=== PATIENT | male | born 1950 | race Caucasian/White ===

== ENCOUNTER 2021-02-15 02:10 | Inpatient (IN) | payer MEDICARE, MEDICAID, SELFPAY ==
[2021-02-15] VITALS (11 sets, daily range): BP systolic 126–180; BP diastolic 64–112; PULSE 70–100; RESP 15–20; TEMP 36–37; O2SAT 95–98; BMI 24.8
--- NOTE | 2021-02-15 | ECG_ITS ---
Test Reason : PREOP Blood Pressure : / mmHG Vent. Rate : 094 BPM Atrial Rate : 094 BPM P-R Int : 180 ms QRS Dur : 076 ms QT Int : 366 ms P-R-T Axes : 070 069 024 degrees QTc Int : 457 ms Sinus rhythm with Premature ventricular complexes Nonspecific ST changes Abnormal ECG When compared with ECG of 06-JUL-2013 19:41, Nonspecific ST changes Premature ventricular complexes Present Referred By: Lucila Burton Electronically Signed By:Lisandro Nair
--- NOTE | ~2021-02-15 | FL_ITS ---
EXAMINATION: XR FLUOROSCOPY WITH IMAGES CLINICAL INFORMATION: Right hip fracture. Femoral nailing. COMPARISON: None. TECHNIQUE: Fluoroscopy performed by Drs. Ashley dos santos. DAP: 0.461 mGycm2 Images: 5 FINDINGS: There is intramedullary femoral marsha in the right hip nail stabilizing the right femoral neck fracture in alignment. There is a small screws stabilizing the inferior medullary marsha. Is no dislocation. FL/FL guidance in OR IMPRESSION: Normal right femoral neck alignment status post internal stabilization with intramedullary femoral marsha and a hip nail with fracture fragments in alignment. There is no dislocation.
--- NOTE | ~2021-02-15 | XR_ITS ---
EXAMINATION: RIGHT HIP AND AP PELVIS. CLINICAL INFORMATION: Pain per COMPARISON: CT right hip 02/15/2021 TECHNIQUE: AP pelvis one view. Right hip 2 views. FINDINGS: AP pelvis and right hip: There is a flexion deformity right femoral neck likely from femoral neck impacted fracture. Mild cephalic migration of the distal fragments seen. There is no dislocation seen. The left hip appears unremarkable. The SI joints and rest of the pelvis is unremarkable. Atherosclerotic calcification of common femoral artery is noted. XR/XR pelvis 1-2V IMPRESSION: Impacted fracture right femoral neck with mild cephalic migration of the distal fragment. This results in flexion deformity of the hip. The left hip joint and rest of the pelvis is unremarkable.
--- NOTE | ~2021-02-15 | XR_ITS ---
EXAMINATION: RIGHT HIP AND AP PELVIS. CLINICAL INFORMATION: Pain per COMPARISON: CT right hip 02/15/2021 TECHNIQUE: AP pelvis one view. Right hip 2 views. FINDINGS: AP pelvis and right hip: There is a flexion deformity right femoral neck likely from femoral neck impacted fracture. Mild cephalic migration of the distal fragments seen. There is no dislocation seen. The left hip appears unremarkable. The SI joints and rest of the pelvis is unremarkable. Atherosclerotic calcification of common femoral artery is noted. XR/XR hip RT min 2V IMPRESSION: Impacted fracture right femoral neck with mild cephalic migration of the distal fragment. This results in flexion deformity of the hip. The left hip joint and rest of the pelvis is unremarkable.
--- NOTE | ~2021-02-15 | CT_ITS ---
EXAMINATION: CT OF THE RIGHT HIP WITHOUT CONTRAST CT OF THE RIGHT FEMUR WITHOUT CONTRAST CLINICAL INFORMATION: Fall. COMPARISON: None TECHNIQUE: Multidetector volumetric imaging was obtained through the right hip and the right femur without contrast. Multiplanar reformatted images in coronal and sagittal orientations were submitted. Assessment is somewhat limited by patient positioning. FINDINGS: There is a comminuted intertrochanteric fracture of the right proximal femur with impaction of the base of the femoral neck by 2 cm. There is slight associated varus angulation at the fracture site. There is a transversely oriented fracture of the greater trochanter with displacement by 7 mm. Lesser trochanteric fragment appears nondisplaced. Femoral head remains appropriately situated at the hip. 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 Bones are osteopenic. No appreciable fractures are identified in the right innominate bone. Calcific atherosclerosis is evident in the right iliac and femoral arteries. There is fat stranding around the right hip with a probable small effusion. No large fluid collections are identified in this region. The intertrochanteric proximal femoral fracture is again noted as detailed above. The remainder of the right femur is intact, though the distal margin is incompletely assessed on these images. The knee joint is not included. Noted fluid collections are identified in the distal femur. The imaged portion of the left proximal femur and left hip joint are intact with mild to moderate osteoarthritis. No acute intrapelvic abnormalities are identified. CT/CT femur RT wo con IMPRESSION: Comminuted impacted intertrochanteric fracture of the right proximal femur. No additional fractures are identified.
--- NOTE | 2021-02-15 03:11 | ED.FALL ---
HPI - Fall General Chief Complaint: Fall Stated Complaint: R hip pain Time Seen by Provider: 02/15/21 03:11 Source: patient Mode of arrival: EMS History of Present Illness HPI Narrative: 70-year-old male presents via EMS after he fell onto is right hip at the [facility] and now unable to move the right lower extremity. Patient denies head strike or loss of consciousness. Otherwise, patient denies fever, chills, shortness of breath, chest pain/palpitations. Related Data Home Medications Medication Instructions Recorded Confirmed amlodipine 1 tab PO DAILY 02/15/21 02/15/21 donepezil 1 tab PO DAILY 02/15/21 02/15/21 levetiracetam 1 tab PO BID 02/15/21 02/15/21 levothyroxine 1 tab PO DAILY 02/15/21 02/15/21 phenytoin sodium extended 1 cap PO TID 02/15/21 02/15/21 pravastatin 1 tab PO BEDTIME 02/15/21 02/15/21 sertraline 1 tab PO DAILY 02/15/21 02/15/21 Allergies Allergy/AdvReac Type Severity Reaction Status Date / Time No Known Allergies Allergy Unverified 05/13/20 15:08 [No Known Allergies*] Review of Systems Review of Systems: Pertinent positives and negatives as stated in HPI 10 point review of systems is otherwise negative. PMFSH Past Medical History Source: nursing notes reviewed Medical History Dementia Social History Social History Alcohol intake: never Smoked in Last 30 Days: No Use of substances other than those prescribed or required for medical reasons: No Advance Directives: No Physical Exam Vital Signs: Vital Signs: Last Vital Signs Temp 96.8 F 02/15/21 04:00 Pulse 72 02/15/21 04:00 Resp 15 02/15/21 04:00 BP 148/90 H 02/15/21 04:00 Pulse Ox 97 02/15/21 04:00 Body Mass Index 24.8 VITAL SIGNS: Reviewed. GENERAL: Well developed, well nourished, in no acute distress. HEAD: Normocephalic/atraumatic EYES: PERRLA, EOMI OROPHARYNX: no oral lesions noted, posterior pharynx clear LUNGS: Normal breath sounds. No adventitious sounds or accessory muscle use. SpO2<97> CARDIOVASCULAR: Regular rate and rhythm without noted murmurs ABDOMEN: Soft, non-tender, non-distended with bowel sounds. RIGHT LOWER EXTREMITY: No deformity noted, leg is flexed at hip and knee and patient reports pain on extension of the leg at the knee, foot is warm, capillary refill less than 3 seconds, palpable DP/PT and sensation intact NEUROLOGIC: Alert, Course Course Course Narrative: This is a 70-year-old male with history and clinical presentation consistent with mechanical fall resulting in fracture of the right proximal femur and otherwise hemodynamically stable and on review of all investigations there are no acute findings. This case was discussed with Orthopedics as well as the inpatient hospitalist, the latter of which is admitting the patient. MDM - Fall Lab Data Result diagrams: 02/15/21 04:43 02/15/21 04:43 Labs: Lab Results 02/15/21 02/15/21 02/15/21 Range/Units 04:18 04:18 04:43 WBC 9.6 (4.8-10.8) X10*3/uL RBC 5.21 (4.60-5.80) X10*6/uL Hgb 15.8 (14.0-18.0) g/dl Hct 46.4 (42-52) % MCV 89.1 (80-98) fL MCH 30.3 (27.0-33.0) pg MCHC 34.1 (31.0-36.0) g/dl RDW 14.6 (11.0-16.0) % Plt Count 227 (160-400) X10*3/uL MPV 11.2 (9.4-12.4) fL Immature Gran % (Auto) 0.5 H (0.0-0.4) % Neut % (Auto) 88.2 H (45-73) % Lymph % (Auto) 4.9 L (20-40) % [place] % (Auto) 5.7 (2-11) % Eos % (Auto) 0.4 (0-4) % Baso % (Auto) 0.3 (0-2) % Lymph # (Auto) 0.5 L (1.2-4.9) X10*3/uL [place] # (Auto) 0.6 (0.1-1.2) X10*3/uL Eos # (Auto) 0.0 (0.0-0.4) X10*3/uL Baso # (Auto) 0.0 (0.0-0.2) X10*3/uL Abs Immat Gran (auto) 0.05 H (0.00-0.03) X10*3/uL Absolute Neuts (auto) 8.5 H (2.0-8.3) X10*3/uL Absolute Nucleated RBC 0.000 (0.0-0.012) X10*3/uL Nucleated RBC % (auto) 0.0 (0.0-0.2) /100WBC Sodium (135-145) mmol/L Potassium (3.3-5.1) mmol/L Chloride (96-108) mmol/L Carbon Dioxide (22-29) mmol/L Anion Gap (12-20) BUN (9-16) mg/dL Creatinine (0.5-1.4) mg/dL Estim Creat Clear Calc Estimated GFR Random Glucose (60-115) mg/dL Calcium (8.4-10.2) mg/dL Total Bilirubin (0.0-1.0) mg/dL AST (5-37) U/L ALT (0-40) U/L Alkaline Phosphatase (39-117) U/L Total Protein (6.5-8.0) g/dL Albumin (3.5-5.0) g/dL Urine Color YELLOW Urine Appearance CLEAR Urine pH 7.0 (5.0-8.0) Ur Specific [place] 1.015 (1.005-1.025) Urine Protein NEG (NEG-TRACE) MG/DL Urine Glucose (UA) NEG (NEG) MG/DL Urine Ketones NEG (NEG) MG/DL Urine Blood 1+ H (NEG) Urine Nitrite NEG (NEG) Ur Leukocyte Esterase NEG (NEG) Urine RBC 1-4 (0) /HPF Urine WBC 0 (0-4) /HPF Ur Squamous Epith Cells TRACE /LPF Urine Bacteria NONE /LPF COVID-19 ([facility]) Negative (Negative) COVID-19 Clin Com See Note 02/15/21 Range/Units 04:43 WBC (4.8-10.8) X10*3/uL RBC (4.60-5.80) X10*6/uL Hgb (14.0-18.0) g/dl Hct (42-52) % MCV (80-98) fL MCH (27.0-33.0) pg MCHC (31.0-36.0) g/dl RDW (11.0-16.0) % Plt Count (160-400) X10*3/uL MPV (9.4-12.4) fL Immature Gran % (Auto) (0.0-0.4) % Neut % (Auto) (45-73) % Lymph % (Auto) (20-40) % [place] % (Auto) (2-11) % Eos % (Auto) (0-4) % Baso % (Auto) (0-2) % Lymph # (Auto) (1.2-4.9) X10*3/uL [place] # (Auto) (0.1-1.2) X10*3/uL Eos # (Auto) (0.0-0.4) X10*3/uL Baso # (Auto) (0.0-0.2) X10*3/uL Abs Immat Gran (auto) (0.00-0.03) X10*3/uL Absolute Neuts (auto) (2.0-8.3) X10*3/uL Absolute Nucleated RBC (0.0-0.012) X10*3/uL Nucleated RBC % (auto) (0.0-0.2) /100WBC Sodium 133 L (135-145) mmol/L Potassium 4.4 (3.3-5.1) mmol/L Chloride 100 (96-108) mmol/L Carbon Dioxide 17 L (22-29) mmol/L Anion Gap 20 (12-20) BUN 11 (9-16) mg/dL Creatinine 0.89 (0.5-1.4) mg/dL Estim Creat Clear Calc 56.3 Estimated GFR > 60 Random Glucose 105 (60-115) mg/dL Calcium 9.2 (8.4-10.2) mg/dL Total Bilirubin 0.3 (0.0-1.0) mg/dL AST 18 (5-37) U/L ALT 9 (0-40) U/L Alkaline Phosphatase 195 H (39-117) U/L Total Protein 7.6 (6.5-8.0) g/dL Albumin 4.4 (3.5-5.0) g/dL Urine Color Urine Appearance Urine pH (5.0-8.0) Ur Specific [place] (1.005-1.025) Urine Protein (NEG-TRACE) MG/DL Urine Glucose (UA) (NEG) MG/DL Urine Ketones (NEG) MG/DL Urine Blood (NEG) Urine Nitrite (NEG) Ur Leukocyte Esterase (NEG) Urine RBC (0) /HPF Urine WBC (0-4) /HPF Ur Squamous Epith Cells /LPF Urine Bacteria /LPF COVID-19 ([facility]) (Negative) COVID-19 Clin Com Discharge Plan Discharge Clinical Impression: Epilepsy, Femur fracture, right Patient Disposition: Admitted As Inpatient
[2021-02-15 04:23] LABS: Appearance Urine CLEAR; Color Urine YELLOW; Glucose Urine UA NEG (NEG); Leukocyte Esterase Urine NEG (NEG); Nitrite Urine NEG (NEG); Specific Gravity - Urine 1.015 (1.005-1.025); Urine Blood 1+ (NEG); Urine Ketones NEG (NEG); Urine Protein NEG (NEG-TRACE)
[2021-02-15 04:29] LABS: Squamous Epithelial Cell Urine TRACE /LPF; WBC Urine 0 /HPF (0-4)
[2021-02-15] MEDS: Ketorolac Tromethamine 15 MG/ML VIAL IVPUSH (04:38)
[2021-02-15 04:41] LABS: COVID-19 Test Negative (Negative); IDNOW Serial# 9DD0AD1C
[2021-02-15 04:49] LABS: Basophils Percent Auto 0.3 % (0-2); Lymphocytes Percent Auto 4.9 % (20-40); Monocytes Percent Auto 5.7 % (2-11); Neutrophils Percent Auto 88.2 % (45-73); PLT CLUMP 1; SCAN SMEAR FLAG 1
[2021-02-15 04:50] LABS: Eosinophils Percent Auto 0.4 % (0-4); Hematocrit 46.4 % (42-52); Hemoglobin 15.8 g/dl (14.0-18.0); Imm Gran Abs Auto 0.05 X10*3/uL (0.00-0.03); Imm Gran Pct Auto 0.5 % (0.0-0.4); Lymphocytes Absolute Auto 0.5 X10*3/uL (1.2-4.9); Mean Corpuscular HGB Conc 34.1 g/dl (31.0-36.0); Mean Corpuscular Hemoglobin 30.3 pg (27.0-33.0); Mean Corpuscular Volume 89.1 fL (80-98); Mean Platelet Volume 11.2 fL (9.4-12.4); Monocytes Absolute Auto 0.6 X10*3/uL (0.1-1.2); Neutrophils Absolute Auto 8.5 X10*3/uL (2.0-8.3); Red Blood Count 5.21 X10*6/uL (4.60-5.80); Red Cell Distribution Width 14.6 % (11.0-16.0); White Blood Count 9.6 X10*3/uL (4.8-10.8)
[2021-02-15 05:10] LABS: MANUAL DIFF FLAG NO; Platelet Count 227 X10*3/uL (160-400)
[2021-02-15 05:20] LABS: Alanine Aminotransferase 9 U/L (0-40); Albumin Level 4.4 g/dL (3.5-5.0); Alkaline Phosphatase 195 U/L (39-117); Anion Gap 20 (12-20); Aspartate Amino Transferase 18 U/L (5-37); Bilirubin Total 0.3 mg/dL (0.0-1.0); Blood Urea Nitrogen 11 mg/dL (9-16); Calcium 9.2 mg/dL (8.4-10.2); Carbon Dioxide 17 mmol/L (22-29); Chloride 100 mmol/L (96-108); Creatinine Clr Calc Pharmacy 56.3; Estimated Glomerular Filt Rate > 60; Glucose Random 105 mg/dL (60-115); Potassium 4.4 mmol/L (3.3-5.1); Sodium 133 mmol/L (135-145); Total Protein 7.6 g/dL (6.5-8.0)
[2021-02-15] MEDS: HYDROmorphone HCl 0.5 MG/0.5 ML SYRINGE 0.25 MG IVPUSH (05:30)
--- NOTE | 2021-02-15 05:42 | PM.IMHP ---
History of Present Illness Date of Service: 02/15/21 Chief Complaint: Fall 70-year-old male with a past medical history of hypertension, hyperlipidemia, hypothyroidism, history of seizures, dementia, retirement resident presented to the hospital with a chief complaint of fall. Patient reported that while he was walking he tripped over and fell on his right hip. Denies any head strike loss of consciousness. Complains of pain in the right hip. Denies any low back pain. Denies any numbness tingling. Denies any chest pain palpitations lightheadedness or dizziness. Denies any fever chills cough. Denies any urinary symptoms. Review of all other systems is negative except mentioned above ER course: Per ER team patient noted to have right hip tenderness, imaging showed committed impacted intertrochanteric fracture of the right proximal femur. Discussed with Dr. rg from orthopedics were recommended admission to the medicine service and will be evaluated in the morning. Patient neurovascularly intact on the right lower extremity. [facility] Medical History Dementia Social History Household Members: Other Housing: Longterm Do you presently have visiting nurse or other home services: No Alcohol intake: never Patient Tobacco Use Status: Never used Tobacco Meds Allergies Allergy/AdvReac Type Severity Reaction Status Date / Time No Known Allergies Allergy Verified 02/15/21 07:24 [No Known Allergies*] Active Medications: Current Medications Generic Name Dose Route Start Last Admin Trade Name Freq PRN Reason Stop Dose Admin Acetaminophen 650 mg 02/15/21 05:37 Acetaminophen 325 Mg Tablet PO Q6H PRN Pain, Mild (Pain Scale 1-3) Amlodipine Besylate 2.5 mg 02/15/21 09:00 Amlodipine Besylate 2.5 Mg Tablet PO DAILY [facility] Protocol Donepezil HCl 10 mg 02/15/21 09:00 Donepezil Hcl 10 Mg Tablet PO DAILY [facility] Heparin Sodium (Porcine) 5,000 unit 02/15/21 05:45 Heparin Sodium,Porcine 5,000 Unit/Ml Vial SUBCUT Q12H [facility] Dextrose/Sodium Chloride 1,000 mls @ 50 mls/hr 02/15/21 05:45 D51/2ns IVCONT .Q20H [facility] Levetiracetam 250 mg 02/15/21 09:00 Levetiracetam 250 Mg Tablet PO BID [facility] Levothyroxine Sodium 25 mcg 02/15/21 09:00 Levothyroxine Sodium 25 Mcg Tablet PO DAILY [facility] Magnesium Hydroxide 30 ml 02/15/21 05:37 Milk Of Magnesia 30 Ml Oral.Susp PO DAILY PRN Constipation Oxycodone HCl 5 mg 02/15/21 05:37 Oxycodone Hcl Immed Release 5 Mg Tablet PO Q6H PRN Pain, Severe (Pain Scale 7-10) Phenytoin Sodium 100 mg 02/15/21 09:00 Phenytoin Sodium Extended 100 Mg Capsule PO TID [facility] Pravastatin Sodium 80 mg 02/15/21 21:00 Pravastatin Sodium 80 Mg Tablet PO BEDTIME [facility] Sertraline HCl 25 mg 02/15/21 09:00 Sertraline Hcl 25 Mg Tablet PO DAILY [facility] Sodium Chloride 3 ml 02/15/21 08:00 0.9 % Sodium Chloride Flush 3 Ml [facility] Medications Medication Instructions Recorded Confirmed Last Taken Type acetaminophen [Tylenol] 650 mg PO Q4H PRN 02/15/21 02/15/21 Unknown History amlodipine 1 tab PO DAILY 02/15/21 02/15/21 Unknown History bisacodyl 10 mg [place] DAILY PRN 02/15/21 02/15/21 Unknown History donepezil 1 tab PO BEDTIME 02/15/21 02/15/21 Unknown History folic acid 1 mg PO DAILY 02/15/21 02/15/21 Unknown History levetiracetam 1 tab PO BID 02/15/21 02/15/21 Unknown History levothyroxine 1 tab PO DAILY 02/15/21 02/15/21 Unknown History magnesium hydroxide [Milk of 30 ml PO DAILY PRN 02/15/21 02/15/21 Unknown History Magnesia] nystatin [Nystop] 1 appl TOPICAL BID PRN 02/15/21 02/15/21 Unknown History phenytoin sodium extended 1 cap PO BEDTIME 02/15/21 02/15/21 Unknown History phenytoin sodium extended 2 cap PO DAILY 02/15/21 02/15/21 Unknown History pravastatin 1 tab PO BEDTIME 02/15/21 02/15/21 Unknown History sertraline 1 tab PO DAILY 02/15/21 02/15/21 Unknown History Physical Exam Vital Signs and Narrative: Vital Signs: Last Vital Signs Temp 96.8 F 02/15/21 04:00 Pulse 72 02/15/21 04:00 Resp 15 02/15/21 04:00 BP 148/90 H 02/15/21 04:00 Pulse Ox 97 02/15/21 04:00 Body Mass Index 24.8 Gen: Appears be in no acute distress HEENT: NCAT, Moist mucosa. Pulmonary: Vesicular breath sounds, fair air entry CVS: Normal S1-S2 Abdomen: BS+, Soft, Nontender Extremities: Warm well perfused; right lower extremity exam limited secondary to the pain Neuro: Alert and awake. Grossly nonfocal Results Labs CBC and Chem 7: 02/19/21 06:18 02/19/21 06:18 Labs: Laboratory Results - last 24 hr 02/15/21 02/15/21 02/15/21 04:18 04:18 04:43 MCV 89.1 MCH 30.3 MCHC 34.1 RDW 14.6 Plt Count 227 MPV 11.2 Immature Gran % (Auto) 0.5 H Neut % (Auto) 88.2 H Lymph % (Auto) 4.9 L [place] % (Auto) 5.7 Eos % (Auto) 0.4 Baso % (Auto) 0.3 Lymph # (Auto) 0.5 L [place] # (Auto) 0.6 Eos # (Auto) 0.0 Baso # (Auto) 0.0 Abs Immat Gran (auto) 0.05 H Absolute Neuts (auto) 8.5 H Absolute Nucleated RBC 0.000 Nucleated RBC % (auto) 0.0 Anion Gap Estim Creat Clear Calc Estimated GFR Random Glucose Calcium Total Bilirubin AST ALT Alkaline Phosphatase Total Protein Albumin Urine Color YELLOW Urine Appearance CLEAR Urine pH 7.0 Ur Specific [place] 1.015 Urine Protein NEG Urine Glucose (UA) NEG Urine Ketones NEG Urine Blood 1+ H Urine Nitrite NEG Ur Leukocyte Esterase NEG Urine RBC 1-4 Urine WBC 0 Ur Squamous Epith Cells TRACE Urine Bacteria NONE COVID-19 ([facility]) Negative COVID-19 Clin Com See Note 02/15/21 04:43 MCV MCH MCHC RDW Plt Count MPV Immature Gran % (Auto) Neut % (Auto) Lymph % (Auto) [place] % (Auto) Eos % (Auto) Baso % (Auto) Lymph # (Auto) [place] # (Auto) Eos # (Auto) Baso # (Auto) Abs Immat Gran (auto) Absolute Neuts (auto) Absolute Nucleated RBC Nucleated RBC % (auto) Anion Gap 20 Estim Creat Clear Calc 56.3 Estimated GFR > 60 Random Glucose 105 Calcium 9.2 Total Bilirubin 0.3 AST 18 ALT 9 Alkaline Phosphatase 195 H Total Protein 7.6 Albumin 4.4 Urine Color Urine Appearance Urine pH Ur Specific [place] Urine Protein Urine Glucose (UA) Urine Ketones Urine Blood Urine Nitrite Ur Leukocyte Esterase Urine RBC Urine WBC Ur Squamous Epith Cells Urine Bacteria COVID-19 ([facility]) COVID-19 Clin Com Imaging Radiologist's Impressions: Impressions Femur CT 02/15/21 02:35 IMPRESSION: Comminuted impacted intertrochanteric fracture of the right proximal femur. No additional fractures are identified. Hip CT 02/15/21 02:36 IMPRESSION: Comminuted impacted intertrochanteric fracture of the right proximal femur. No additional fractures are identified. Assessment and Plan (1) Femur fracture, right: Status: Acute 70-year-old male with a past medical history of hypertension, hyperlipidemia, hypothyroidism, epilepsy, dementia, retirement resident presented to the hospital with a chief complaint of fall. Patient noted to have sustained right femur fracture. Admitted for further management. Fall: Mechanical in nature. Denies any head strike or loss of consciousness. Exam grossly nonfocal. Fall precautions Right femur fracture: CT scan showed comminuted impacted intertrochanteric fracture of the right proximal femur. Orthopedics was notified. Management per Orthopedics team. Pain control Preop evaluation: Patient denies any chest pain. Patient is moderate to high risk for moderate risk surgery. History of hypertension/hyperlipidemia: Continue home pravastatin and amlodipine. History of seizures: Continue home Keppra and phenytoin History of dementia: Continue home donepezil and sertraline. DVT prophylaxis: Subcu heparin Code status: Full code Quality Stroke Does the patient have a stroke diagnosis?: No VTE Prior VTE?: No VTE Risk Level:: Medical - moderate - high VTE Device Contraindication: N/A - Device Ordered VTE Drug Contraindication: N/A - Med Ordered
[2021-02-15 07:01] LABS: Prothrombin Time 12.2 SEC (10.8-13.0)
[2021-02-15] MEDS: Heparin Sodium,Porcine 5,000 UNIT/ML VIAL 5000 UNIT SUBCUT (07:46)
[2021-02-15] MEDS: Dextrose 5 % and 0.45 % NaCl 1,000 ML 50 ML IVCONT (07:46)
--- NOTE | 2021-02-15 07:51 | MHC.CM.ED ---
PATIENT IS IN FROM [facility]LO[facility]. HE RELIES ON A WALKER, CANE, AND WHEELCHAIR. 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 PLAN IS TO RETURN TO FACILITY. JAMA 02/15 IN CHART.
--- NOTE | 2021-02-15 08:13 | P.HPOP_ITS ---
History of Present Illness History of Present Illness Date of Service: 02/15/21 Chief complaint: Fall Narrative: Eleno Sommers is a 70 year old male who sustained a fall at the nursing facility yesterday. The patient is unable to describe the events leading up to or after the fall and appears to be an unreliable historian. He has a past medical history confirmed with the [facility] for Seizures, dementia, malnutrition, HTN, HLD, and hypothyroidism. He presented to the ED after the fall for evaluation of right hip pain and inability to ambulate or move the right leg. A CT scan was obtained and he was found to have an impacted intertrochanteric right hip fracture. Review of Systems Review of Systems: Yes all other systems are reviewed and are negative PMFSH Past Medical History Medical History Dementia Social History Social History Alcohol intake: never Smoked in Last 30 Days: No Use of substances other than those prescribed or required for medical reasons: No Advance Directives: No Meds Allergies Allergy/AdvReac Type Severity Reaction Status Date / Time No Known Allergies Allergy Verified 02/15/21 07:24 [No Known Allergies*] Active Medications: Current Medications Generic Name Dose Route Start Last Admin Trade Name Freq PRN Reason Stop Dose Admin Acetaminophen 650 mg 02/15/21 05:37 Acetaminophen 325 Mg Tablet PO Q6H PRN Pain, Mild (Pain Scale 1-3) Amlodipine Besylate 2.5 mg 02/15/21 09:00 Amlodipine Besylate 2.5 Mg Tablet PO DAILY [facility] Protocol Donepezil HCl 10 mg 02/15/21 09:00 Donepezil Hcl 10 Mg Tablet PO DAILY [facility] Heparin Sodium (Porcine) 5,000 unit 02/15/21 05:45 02/15/21 07:46 Heparin Sodium,Porcine 5,000 Unit/Ml Vial SUBCUT 5,000 unit Q12H [facility] Administration Dextrose/Sodium Chloride 1,000 mls @ 50 mls/hr 02/15/21 05:45 02/15/21 07:46 D51/2ns IVCONT 50 mls/hr .Q20H [facility] Administration Levetiracetam 250 mg 02/15/21 09:00 Levetiracetam 250 Mg Tablet PO BID [facility] Levothyroxine Sodium 25 mcg 02/15/21 09:00 Levothyroxine Sodium 25 Mcg Tablet PO DAILY [facility] Magnesium Hydroxide 30 ml 02/15/21 05:37 Milk Of Magnesia 30 Ml Oral.Susp PO DAILY PRN Constipation Oxycodone HCl 5 mg 02/15/21 05:37 Oxycodone Hcl Immed Release 5 Mg Tablet PO Q6H PRN Pain, Severe (Pain Scale 7-10) Phenytoin Sodium 100 mg 02/15/21 09:00 Phenytoin Sodium Extended 100 Mg Capsule PO TID [facility] Pravastatin Sodium 80 mg 02/15/21 21:00 Pravastatin Sodium 80 Mg Tablet PO BEDTIME [facility] Sertraline HCl 25 mg 02/15/21 09:00 Sertraline Hcl 25 Mg Tablet PO DAILY [facility] Sodium Chloride 3 ml 02/15/21 08:00 02/15/21 07:46 0.9 % Sodium Chloride Flush 3 Ml Syringe IVFLUSH Not Given QSHIFT [facility] Home Medications Medication Instructions Recorded Confirmed Last Taken Type amlodipine 1 tab PO DAILY 02/15/21 02/15/21 Unknown History donepezil 1 tab PO DAILY 02/15/21 02/15/21 Unknown History levetiracetam 1 tab PO BID 02/15/21 02/15/21 Unknown History levothyroxine 1 tab PO DAILY 02/15/21 02/15/21 Unknown History phenytoin sodium extended 1 cap PO TID 02/15/21 02/15/21 Unknown History pravastatin 1 tab PO BEDTIME 02/15/21 02/15/21 Unknown History sertraline 1 tab PO DAILY 02/15/21 02/15/21 Unknown History Physical Exam Vital Signs: Vital Signs: Last Vital Signs Temp 96.8 F 02/15/21 04:00 Pulse 92 02/15/21 05:37 Resp 16 02/15/21 05:37 BP 142/64 H 02/15/21 05:37 Pulse Ox 98 02/15/21 05:37 Body Mass Index 24.8 Const: General: cooperative, healthy appearing and no acute distress Resp: Effort & Inspection: normal respiratory effort and able to speak in complete sentences Cardio: Rate: regular rate Peripheral pulses: Peripheral pulses 2+ throughout GI: Palpation (GI): Soft to palpation Skin: Lesions: no lesions Rashes: no rashes Extrem: Other: Patient is in the position unable to flex or extend his hip. He is able to plantarflex and dorsiflex. Sensation intact. Pedal pulse intact. Results Labs Result Diagrams: 02/15/21 04:43 02/15/21 04:43 Labs: Abnormal lab results 02/15/21 02/15/21 02/15/21 Range/Units 04:18 04:43 04:43 Immature Gran % (Auto) 0.5 H (0.0-0.4) % Neut % (Auto) 88.2 H (45-73) % Lymph % (Auto) 4.9 L (20-40) % Lymph # (Auto) 0.5 L (1.2-4.9) X10*3/uL Abs Immat Gran (auto) 0.05 H (0.00-0.03) X10*3/uL Absolute Neuts (auto) 8.5 H (2.0-8.3) X10*3/uL Sodium 133 L (135-145) mmol/L Carbon Dioxide 17 L (22-29) mmol/L Alkaline Phosphatase 195 H (39-117) U/L Urine Blood 1+ H (NEG) H & H 02/15/21 Range/Units 04:43 Hgb 15.8 (14.0-18.0) g/dl Hct 46.4 (42-52) % Coagulation 02/15/21 Range/Units 06:45 INR 1.0 (0.9-1.1) All other labs normal. Assessment and Plan (1) Intertrochanteric fracture of right hip: Status: Acute Mr. Sommers is a 70 yo male with a PMH for seizures, dementia, malnutrition, hypertension, hypothyroid, hyperlipidemia who presents from [facility] after sustaining a fall. After the fall he had significant right hip pain was unable to ambulate. A CT scan was obtained of t he pelvis where he was found to have a right impacted intertrochanteric hip fracture. Orthopedics was then consulted for further evaluation and treatment and the patient was admitted to the medicine service. I discussed the case with Dr. Ybarra and the patient's guardian Josh Oliveiraawilda at [phone]. I explained the extent of the injury to the patient and options available which include surgical intervention. I explained the procedure in detail along with the length of recovery and rehab course. I explained the risk, benefits and alternatives. Risk including, but not limited to infection, blood clots, bleeding, non union or malunion and nerve/tissue damage to surrounding areas. I answered all their questions and with their understanding they have consented to move forward with Operative Fixation of the right hip . The patient will be T&S, med clearance obtained and NPO after midnight for surgery on 02/17/21. Quality Stroke Does the patient have a stroke diagnosis?: No VTE Prior VTE?: No VTE Risk Level:: Surgical - high VTE Device Contraindication: N/A - Device Ordered VTE Drug Contraindication: N/A - Med Ordered Procedures Date of Service Date of Service: 02/15/21
--- NOTE | 2021-02-15 08:52 | PHA.MEDREC ---
Pharmacy Consult ? Medication Reconciliation Pharmacy has completed the medication reconciliation.
[2021-02-15] MEDS: amLODIPine Besylate 2.5 MG TABLET PO ×2 (10:17→16:44)
[2021-02-15] MEDS: Donepezil HCl 10 MG TABLET PO (10:17)
[2021-02-15] MEDS: Levothyroxine Sodium 25 MCG TABLET PO (10:17)
[2021-02-15] MEDS: Sertraline HCL 25 MG TABLET PO (10:17)
[2021-02-15] MEDS: Phenytoin Sodium Extended 100 MG CAPSULE PO ×3 (10:17→21:55)
[2021-02-15] MEDS: levETIRAcetam 250 MG TABLET PO ×2 (10:17→21:54)
--- NOTE | 2021-02-15 12:40 | PC.NURSE ---
call for report. rn to call back
[2021-02-15] MEDS: 0.9 % Sodium Chloride Flush 3 ML SYRINGE IVFLUSH (15:29)
[2021-02-15] MEDS: oxyCODONE HCl Immed Release 5 MG TABLET PO (15:29)
--- NOTE | 2021-02-15 16:15 | P.PNIM_ITS ---
Subjective Subjective Date of Service: 02/15/21 Interval History: R hip pain No chest pain No dyspnea Physical Exam Vital Signs: Vital Signs: Last Vital Signs Temp 97 F 02/15/21 15:43 Pulse 93 02/15/21 15:43 Resp 18 02/15/21 15:43 BP 180/110 H 02/15/21 15:43 Pulse Ox 96 02/15/21 15:43 Body Mass Index 24.8 Gen: in pain HEENT: sclera anicteric, moist mucus membranes Neck: supple Lungs: clear to auscultation bilaterally Heart: regular rate and rhythm, no murmurs Abd: soft, non-tender, non-distended Ext: no edema, R hip ROM limited by pain Skin: warm/well-perfused Neuro: alert, no focal cindings Psych: appropriate affect Objective Data Current Medications Generic Name Dose Route Start Last Admin Trade Name Freq PRN Reason Stop Dose Admin Acetaminophen 650 mg 02/15/21 05:37 Acetaminophen 325 Mg Tablet PO Q6H PRN Pain, Mild (Pain Scale 1-3) Amlodipine Besylate 2.5 mg 02/15/21 09:00 02/15/21 10:17 Amlodipine Besylate 2.5 Mg Tablet PO 2.5 mg DAILY MIRIAN Administration Protocol Donepezil HCl 10 mg 02/15/21 09:00 02/15/21 10:17 Donepezil Hcl 10 Mg Tablet PO 10 mg DAILY MIRIAN Administration Heparin Sodium (Porcine) 5,000 unit 02/15/21 05:45 02/15/21 07:46 Heparin Sodium,Porcine 5,000 Unit/Ml Vial SUBCUT 5,000 unit Q12H MIRIAN Administration Dextrose/Sodium Chloride 1,000 mls @ 50 mls/hr 02/15/21 05:45 02/15/21 07:46 D51/2ns IVCONT 50 mls/hr .Q20H MIRIAN Administration Levetiracetam 250 mg 02/15/21 09:00 02/15/21 10:17 Levetiracetam 250 Mg Tablet PO 250 mg BID MIRIAN Administration Levothyroxine Sodium 25 mcg 02/15/21 09:00 02/15/21 10:17 Levothyroxine Sodium 25 Mcg Tablet PO 25 mcg DAILY MIRIAN Administration Magnesium Hydroxide 30 ml 02/15/21 05:37 Milk Of Magnesia 30 Ml Oral.Susp PO DAILY PRN Constipation Oxycodone HCl 5 mg 02/15/21 05:37 02/15/21 15:29 Oxycodone Hcl Immed Release 5 Mg Tablet PO 5 mg Q6H PRN Administration Pain, Severe (Pain Scale 7-10) Phenytoin Sodium 100 mg 02/15/21 09:00 02/15/21 15:29 Phenytoin Sodium Extended 100 Mg Capsule PO 100 mg TID MIRIAN Administration Pravastatin Sodium 80 mg 02/15/21 21:00 Pravastatin Sodium 80 Mg Tablet PO BEDTIME MIRIAN Sertraline HCl 25 mg 02/15/21 09:00 02/15/21 10:17 Sertraline Hcl 25 Mg Tablet PO 25 mg DAILY MIRIAN Administration Sodium Chloride 3 ml 02/15/21 08:00 02/15/21 15:29 0.9 % Sodium Chloride Flush 3 Ml Syringe IVFLUSH 3 ml QSHIFT MIRIAN Administration Labs CBC & Chem 7: 02/15/21 04:43 02/15/21 04:43 Labs: Laboratory Results - last 24 hr 02/15/21 02/15/21 02/15/21 04:18 04:18 04:43 WBC 9.6 RBC 5.21 Hgb 15.8 Hct 46.4 MCV 89.1 MCH 30.3 MCHC 34.1 RDW 14.6 Plt Count 227 MPV 11.2 Immature Gran % (Auto) 0.5 H Neut % (Auto) 88.2 H Lymph % (Auto) 4.9 L [place] % (Auto) 5.7 Eos % (Auto) 0.4 Baso % (Auto) 0.3 Lymph # (Auto) 0.5 L [place] # (Auto) 0.6 Eos # (Auto) 0.0 Baso # (Auto) 0.0 Abs Immat Gran (auto) 0.05 H Absolute Neuts (auto) 8.5 H Absolute Nucleated RBC 0.000 Nucleated RBC % (auto) 0.0 PT INR Sodium Potassium Chloride Carbon Dioxide Anion Gap BUN Creatinine Estim Creat Clear Calc Estimated GFR Random Glucose Calcium Total Bilirubin AST ALT Alkaline Phosphatase Total Protein Albumin Urine Color YELLOW Urine Appearance CLEAR Urine pH 7.0 Ur Specific [place] 1.015 Urine Protein NEG Urine Glucose (UA) NEG Urine Ketones NEG Urine Blood 1+ H Urine Nitrite NEG Ur Leukocyte Esterase NEG Urine RBC 1-4 Urine WBC 0 Ur Squamous Epith Cells TRACE Urine Bacteria NONE COVID-19 (ZAHIRA) Negative COVID-19 Clin Com See Note Blood Type Antibody Screen 02/15/21 02/15/21 02/15/21 04:43 06:45 07:31 WBC RBC Hgb Hct MCV MCH MCHC RDW Plt Count MPV Immature Gran % (Auto) Neut % (Auto) Lymph % (Auto) [place] % (Auto) Eos % (Auto) Baso % (Auto) Lymph # (Auto) [place] # (Auto) Eos # (Auto) Baso # (Auto) Abs Immat Gran (auto) Absolute Neuts (auto) Absolute Nucleated RBC Nucleated RBC % (auto) PT 12.2 INR 1.0 Sodium 133 L Potassium 4.4 Chloride 100 Carbon Dioxide 17 L Anion Gap 20 BUN 11 Creatinine 0.89 Estim Creat Clear Calc 56.3 Estimated GFR > 60 Random Glucose 105 Calcium 9.2 Total Bilirubin 0.3 AST 18 ALT 9 Alkaline Phosphatase 195 H Total Protein 7.6 Albumin 4.4 Urine Color Urine Appearance Urine pH Ur Specific [place] Urine Protein Urine Glucose (UA) Urine Ketones Urine Blood Urine Nitrite Ur Leukocyte Esterase Urine RBC Urine WBC Ur Squamous Epith Cells Urine Bacteria COVID-19 (ZAHIRA) COVID-19 Clin Com Blood Type O Positive Antibody Screen NEGATIVE Quality Stroke Does the patient have a stroke diagnosis?: No VTE Prior VTE?: No VTE Risk Level:: Surgical - high VTE Device Contraindication: N/A - Device Ordered VTE Drug Contraindication: N/A - Med Ordered Assessment and Plan (1) Intertrochanteric fracture of right hip: Status: Acute Assessment and Plan: hospital d#1 70yo M [facility] resident with HTN, HLD, hypothyroidism, seizure disorder, dementia admitted for intertrochanteric R hip fracture sustained after mechanical fall # R femur fx - Ortho consulted, plan ORIF 02/17/21 # HTN - continue amlodipine # HLD - continue statin # seizure disorder - continue levetiracetam + phenytoin # dementia - continue donepezil + sertraline # hypothyroidism - continue LT4 # VTE ppx - UFH
[2021-02-15] MEDS: Pravastatin Sodium 80 MG TABLET PO (21:56)
[2021-02-16] VITALS (16 sets, daily range): BP systolic 99–152; BP diastolic 69–102; PULSE 80–127; RESP 14–18; TEMP 36.4–37.2; O2SAT 92–99
[2021-02-16] MEDS: oxyCODONE HCl Immed Release 5 MG TABLET PO (00:14)
--- NOTE | 2021-02-16 00:19 | PM.EVENT ---
Event Note Date of Service: 02/16/21 Event Note: Bigeminy: Patient has frequent PVCs with bigeminy on the telemetry. Patient asymptomatic. Echocardiogram. Cardiology consult.
--- NOTE | 2021-02-16 00:19 | PC.NURSE ---
pt having frequent PVC, having around 25-34 per minute. sinus rhythm/sinus tachycardia. Patient reported pain in right hip. PRN oxycodone given, pending results. MD made aware, no new orders at this time.
[2021-02-16] MEDS: HYDROmorphone HCl 0.5 MG/0.5 ML SYRINGE IVPUSH ×2 (03:13→22:23)
[2021-02-16] MEDS: Dextrose 5 % and 0.45 % NaCl 1,000 ML 50 ML IVCONT (03:55)
[2021-02-16 05:50] LABS: MANUAL DIFF FLAG NO
[2021-02-16 05:56] LABS: Basophils Percent Auto 0.1 % (0-2); Hematocrit 41.3 % (42-52); Hemoglobin 14.5 g/dl (14.0-18.0); Imm Gran Abs Auto 0.05 X10*3/uL (0.00-0.03); Imm Gran Pct Auto 0.5 % (0.0-0.4); Lymphocytes Absolute Auto 0.3 X10*3/uL (1.2-4.9); Lymphocytes Percent Auto 2.8 % (20-40); Mean Corpuscular HGB Conc 35.1 g/dl (31.0-36.0); Mean Corpuscular Volume 85.5 fL (80-98); Monocytes Percent Auto 9.2 % (2-11); Neutrophils Absolute Auto 9.4 X10*3/uL (2.0-8.3); Neutrophils Percent Auto 87.4 % (45-73); Platelet Count 289 X10*3/uL (160-400); Red Blood Count 4.83 X10*6/uL (4.60-5.80); Red Cell Distribution Width 14.5 % (11.0-16.0); White Blood Count 10.8 X10*3/uL (4.8-10.8)
[2021-02-16 06:24] LABS: Anion Gap 15 (12-20); Blood Urea Nitrogen 12 mg/dL (9-16); Calcium 8.8 mg/dL (8.4-10.2); Carbon Dioxide 23 mmol/L (22-29); Chloride 97 mmol/L (96-108); Creatinine Clr Calc Pharmacy 61.8; Estimated Glomerular Filt Rate > 60; Glucose Random 145 mg/dL (60-115); Potassium 4.1 mmol/L (3.3-5.1); Sodium 131 mmol/L (135-145)
--- NOTE | 2021-02-16 08:30 | CA_ITS ---
Transthoracic Echocardiogram Patient (Last, First, Middle): Eleno Sommers E Gender: Male Date of : 1950 Age: 70 Procedure Date: 02/16/2021 Procedure Type: Transthoracic Echocardiogram Location: [facility] Height: 154.94 cm Weight: 59.42 kg BSA: 1.58 m2 Heart Rate: bpm BP: 141 / 82 mmHg Dope Mixer: AUBRIE Referring MD: Mo Marcano MD Symptoms: bigeminy Study Quality: Fair Conclusions: - Technically limited study. - Normal left ventricular size and systolic function. - Normal right ventricular cavity size and systolic function. In some views the RV wall appears hypertrophic. No subcostal views were taken. - Poor valvular assessment due to technical limitations. Findings Left Ventricle Normal left ventricular size and systolic function. The visually estimated ejection fraction is between 55-60%. Regional wall motion abnormalities can not be excluded due to suboptimal endocardial definition. Diastolic function is indeterminate on the basis of available data. Right Ventricle Normal right ventricular cavity size and systolic function. In some views the RV wall appears hypertrophic. Atria The left atrium was not well visualized. Aortic Valve The aortic valve structure and function is likely normal. There is no aortic valve stenosis. There is no aortic valve regurgitation. Mitral Valve The mitral valve was not well visualized. Pulmonic Valve The pulmonic valve was not well visualized. Tricuspid Valve The tricuspid valve was not well visualized. Indeterminate right atrial pressure. Great Vessels The pulmonary artery was not well visualized. There is mild dilatation of the ascending aorta. Venous The inferior vena cava was not well visualized. Pericardium/Pleural There is no evidence of pericardial effusion. Prior Study Comparison No prior study available for comparison. Measurements 2D Linear Measurements IVSd: 1.12 0.6-0.9/0.6-1.0 cm LVIDd: 3.08 3.9-5.3/4.2-5.9 cm LVIDd Index: 1.95 2.4-3.2/2.2-3.1 cm/m2 LVIDs: 2.44 2.0-3.6 cm LVPWd: 1.00 0.7-1.1 cm Ao Root: 3.90 2.1-3.5 cm LA Diam: 2.50 2.7-3.8/3.0-4.0 cm LAIDs Index: 1.58 1.5-2.3 cm/m2 LV Mass: 115.85 67-162/88-224 g LV Mass Index: 73.32 43-95/49-115 g/m2 LVOT Diam: 2.20 3.0+(-)1.3 cm Mitral Valve E'Lateral: 6.74 E'Medial: 6.85 Aortic Valve AoV Pk Hernandez: 1.00 AoV Mn Hernandez: 0.64 AoV VTI: 0.13 AoV Pk Grad: 4.00 Aov Mn Grad: 2.00 RICK Cont.VTI: 3.89 LVOT LVOT Pk Hernandez: 0.82 LVOT Mn Hernandez: 0.59 LVOT VTI: 0.13 LVOT Pk Grad: 3.00 LVOT Mn Grad: 2.00 LVOT Diam: 2.20 LVOT Area: 3.80 Diastolic Function E'Medial: 6.85 E' Laterial: 6.74 Tricuspid Valve TR Pk Hernandez: 1.60 TR Pk Grad: 10.00 Great Vessels Aorta Ao Root-2D: 3.90 2.0-3.7 cm Ao Asc: 3.80 2.1-3.4 cm Updated in Other Vendor System with Status of Final Lisandro Nair MD electronically signed on 02/16/2021 11:41:26 AM with status of Final
[2021-02-16] MEDS: Phenytoin Sodium Extended 100 MG CAPSULE PO ×2 (09:12→20:38)
[2021-02-16] MEDS: levETIRAcetam 250 MG TABLET PO ×2 (09:12→20:38)
[2021-02-16] MEDS: Levothyroxine Sodium 25 MCG TABLET PO (09:12)
--- NOTE | 2021-02-16 10:54 | HO.ANESPROP2 ---
[facility] Active Problems Active Problems: All Active Problems (Updated 02/15/21 @ 08:16 by Lisette Yanez PA-C) Intertrochanteric fracture of right hip (Acute) Epilepsy (Acute) Femur fracture, right (Acute) Past Medical History Medical History Dementia Social History Social History Household Members: Other Housing: Longterm Do you presently have visiting nurse or other home services: No Alcohol intake: never Patient Tobacco Use Status: Never used Tobacco Meds Allergies Allergy/AdvReac Type Severity Reaction Status Date / Time No Known Allergies Allergy Verified 02/15/21 07:24 [No Known Allergies*] Active Medications: Current Medications Generic Name Dose Route Start Last Admin Trade Name Freq PRN Reason Stop Dose Admin Acetaminophen 650 mg 02/15/21 05:37 Acetaminophen 325 Mg Tablet PO Q6H PRN Pain, Mild (Pain Scale 1-3) Amlodipine Besylate 5 mg 02/16/21 09:00 02/16/21 09:13 Amlodipine Besylate 5 Mg Tablet PO Not Given DAILY [facility] Protocol Donepezil HCl 10 mg 02/15/21 09:00 02/16/21 09:14 Donepezil Hcl 10 Mg Tablet PO Not Given DAILY MIRIAN Heparin Sodium (Porcine) 5,000 unit 02/15/21 05:45 02/16/21 04:04 Heparin Sodium,Porcine 5,000 Unit/Ml Vial SUBCUT Not Given Q12H MIRIAN Hydromorphone HCl 0.5 mg 02/16/21 02:48 02/16/21 03:13 Hydromorphone Hcl 0.5 Mg/0.5 Ml Syringe IVPUSH 0.5 mg Q6H PRN Administration Breakthrough Pain Dextrose/Sodium Chloride 1,000 mls @ 50 mls/hr 02/15/21 05:45 02/16/21 03:55 D51/2ns IVCONT 50 mls/hr .Q20H MIRIAN Administration Levetiracetam 250 mg 02/15/21 09:00 02/16/21 09:12 Levetiracetam 250 Mg Tablet PO 250 mg BID MIRIAN Administration Levothyroxine Sodium 25 mcg 02/15/21 09:00 02/16/21 09:12 Levothyroxine Sodium 25 Mcg Tablet PO 25 mcg DAILY MIRIAN Administration Magnesium Hydroxide 30 ml 02/15/21 05:37 Milk Of Magnesia 30 Ml Oral.Susp PO DAILY PRN Constipation Oxycodone HCl 5 mg 02/15/21 05:37 02/16/21 00:14 Oxycodone Hcl Immed Release 5 Mg Tablet PO 5 mg Q6H PRN Administration Pain, Severe (Pain Scale 7-10) Phenytoin Sodium 100 mg 02/15/21 09:00 02/16/21 09:12 Phenytoin Sodium Extended 100 Mg Capsule PO 100 mg TID MIRIAN Administration Pravastatin Sodium 80 mg 02/15/21 21:00 02/15/21 21:56 Pravastatin Sodium 80 Mg Tablet PO 80 mg BEDTIME [facility] Administration Sertraline HCl 25 mg 02/15/21 09:00 02/16/21 09:14 Sertraline Hcl 25 Mg Tablet PO Not Given DAILY [facility] Sodium Chloride 3 ml 02/15/21 08:00 02/16/21 09:15 0.9 % Sodium Chloride Flush 3 Ml Syringe IVFLUSH Not Given QSHIFT [facility] Home Medications Medication Instructions Recorded Confirmed Last Taken Type acetaminophen [Tylenol] 650 mg PO Q4H PRN 02/15/21 02/15/21 Unknown History amlodipine 1 tab PO DAILY 02/15/21 02/15/21 Unknown History bisacodyl 10 mg NC DAILY PRN 02/15/21 02/15/21 Unknown History donepezil 1 tab PO BEDTIME 02/15/21 02/15/21 Unknown History folic acid 1 mg PO DAILY 02/15/21 02/15/21 Unknown History levetiracetam 1 tab PO BID 02/15/21 02/15/21 Unknown History levothyroxine 1 tab PO DAILY 02/15/21 02/15/21 Unknown History magnesium hydroxide [Milk of 30 ml PO DAILY PRN 02/15/21 02/15/21 Unknown History Magnesia] nystatin [Nystop] 1 appl TOPICAL BID PRN 02/15/21 02/15/21 Unknown History phenytoin sodium extended 1 cap PO BEDTIME 02/15/21 02/15/21 Unknown History phenytoin sodium extended 2 cap PO DAILY 02/15/21 02/15/21 Unknown History pravastatin 1 tab PO BEDTIME 02/15/21 02/15/21 Unknown History sertraline 1 tab PO DAILY 02/15/21 02/15/21 Unknown History Exam Exam Date and Time: February 16, 2021 1054 Height,Weight and Vital Signs: Height 5 ft 1 in Weight 59.7 kg Last Vital Signs Temp 98.9 F 02/16/21 10:30 Pulse 127 H 02/16/21 10:30 Resp 18 02/16/21 10:30 BP 152/102 H 02/16/21 10:30 Pulse Ox 95 02/16/21 10:30 Pertinent Lab Results Pertinent Lab Results: Laboratory Tests 02/15/21 02/15/21 02/15/21 04:18 04:18 04:43 WBC 9.6 RBC 5.21 Hgb 15.8 Hct 46.4 MCV 89.1 MCH 30.3 MCHC 34.1 RDW 14.6 Plt Count 227 MPV 11.2 Immature Gran % (Auto) 0.5 H Neut % (Auto) 88.2 H Lymph % (Auto) 4.9 L [place] % (Auto) 5.7 Eos % (Auto) 0.4 Baso % (Auto) 0.3 Lymph # (Auto) 0.5 L [place] # (Auto) 0.6 Eos # (Auto) 0.0 Baso # (Auto) 0.0 Abs Immat Gran (auto) 0.05 H Absolute Neuts (auto) 8.5 H Absolute Nucleated RBC 0.000 Nucleated RBC % (auto) 0.0 PT INR Sodium Potassium Chloride Carbon Dioxide Anion Gap BUN Creatinine Estim Creat Clear Calc Estimated GFR Random Glucose Calcium Total Bilirubin AST ALT Alkaline Phosphatase Total Protein Albumin Urine Color YELLOW Urine Appearance CLEAR Urine pH 7.0 Ur Specific [place] 1.015 Urine Protein NEG Urine Glucose (UA) NEG Urine Ketones NEG Urine Blood 1+ H Urine Nitrite NEG Ur Leukocyte Esterase NEG Urine RBC 1-4 Urine WBC 0 Ur Squamous Epith Cells TRACE Urine Bacteria NONE COVID-19 (ZAHIRA) Negative COVID-19 Clin Com See Note Blood Type Antibody Screen 02/15/21 02/15/21 02/15/21 04:43 06:45 07:31 WBC RBC Hgb Hct MCV MCH MCHC RDW Plt Count MPV Immature Gran % (Auto) Neut % (Auto) Lymph % (Auto) [place] % (Auto) Eos % (Auto) Baso % (Auto) Lymph # (Auto) [place] # (Auto) Eos # (Auto) Baso # (Auto) Abs Immat Gran (auto) Absolute Neuts (auto) Absolute Nucleated RBC Nucleated RBC % (auto) PT 12.2 INR 1.0 Sodium 133 L Potassium 4.4 Chloride 100 Carbon Dioxide 17 L Anion Gap 20 BUN 11 Creatinine 0.89 Estim Creat Clear Calc 56.3 Estimated GFR > 60 Random Glucose 105 Calcium 9.2 Total Bilirubin 0.3 AST 18 ALT 9 Alkaline Phosphatase 195 H Total Protein 7.6 Albumin 4.4 Urine Color Urine Appearance Urine pH Ur Specific [place] Urine Protein Urine Glucose (UA) Urine Ketones Urine Blood Urine Nitrite Ur Leukocyte Esterase Urine RBC Urine WBC Ur Squamous Epith Cells Urine Bacteria COVID-19 (ZAHIRA) COVID-19 Clin Com Blood Type O Positive Antibody Screen NEGATIVE 02/16/21 02/16/21 05:12 05:12 WBC 10.8 RBC 4.83 Hgb 14.5 Hct 41.3 L MCV 85.5 MCH 30.0 MCHC 35.1 RDW 14.5 Plt Count 289 D MPV 11.0 Immature Gran % (Auto) 0.5 H Neut % (Auto) 87.4 H Lymph % (Auto) 2.8 L [place] % (Auto) 9.2 Eos % (Auto) 0.0 Baso % (Auto) 0.1 Lymph # (Auto) 0.3 L [place] # (Auto) 1.0 Eos # (Auto) 0.0 Baso # (Auto) 0.0 Abs Immat Gran (auto) 0.05 H Absolute Neuts (auto) 9.4 H Absolute Nucleated RBC 0.000 Nucleated RBC % (auto) 0.0 PT INR Sodium 131 L Potassium 4.1 Chloride 97 Carbon Dioxide 23 Anion Gap 15 BUN 12 Creatinine 0.81 Estim Creat Clear Calc 61.8 Estimated GFR > 60 Random Glucose 145 H D Calcium 8.8 Total Bilirubin AST ALT Alkaline Phosphatase Total Protein Albumin Urine Color Urine Appearance Urine pH Ur Specific [place] Urine Protein Urine Glucose (UA) Urine Ketones Urine Blood Urine Nitrite Ur Leukocyte Esterase Urine RBC Urine WBC Ur Squamous Epith Cells Urine Bacteria COVID-19 (ZAHIRA) COVID-19 Clin Com Blood Type Antibody Screen Airway Mallampati Class: II TM Dist: >3cm Neck ROM: Full Heart: RRR Lungs: CTA
[2021-02-16] MEDS: Lactated Ringers 500 ML 20 ML IVCONT (11:27)
--- NOTE | 2021-02-16 12:06 | MHC.CM.PN ---
Male 70 DX S/P fall Hip FX DP is to return to [facility] via BLS. O.R. today. Anticipate dc 2-3 days.
--- NOTE | 2021-02-16 12:54 | MHC.SHP ---
Pre-Procedural Eval Section A The patient is an INPATIENT: Yes Section B Chief Complaint: Fall Allergies: Allergies Allergy/AdvReac Type Severity Reaction Status Date / Time No Known Allergies Allergy Verified 02/15/21 07:24 [No Known Allergies*] Plan I have reviewed the history and physical and performed a pertinent physical examination on my patient. No changes have occurred unless specified.
--- NOTE | 2021-02-16 14:21 | PC.NURSE ---
Per amlodopine, donezepil, and Zoloft were held before pt went for ORIF.l
--- NOTE | 2021-02-16 14:30 | P.OP_ITS ---
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 Was subsequently brought to the emergency department. Was admitted to the medical service with the above diagnosis. After medical clearance and discussing the risks, benefits, and alternatives of the surgery as well as the rehabilitation course to his healthcare proxy/ was mutually agreed upon to carry out following procedure. Guardian, it OPERATIVE PROCEDURE Under a general anesthetic the patient was placed supine on the fracture table. The left leg was flexed and externally rotated out of the way. The operative right leg was placed in standard boot traction. Closed reduction was performed under fluoroscopic guidance. This demonstrated the fracture to be reduced in a good position. Therefore the right hip and leg was then prepped and draped in standard barrier technique. Surgical time-out was then performed. The patient was identified. Procedure confirmed. Medical and allergy history is were reviewed. Preoperative antibiotics were given. Standard DVT prophylaxis was in place. All other items were discussed and agreed upon. Standard approach to tip of the trochanter was carried out. This was taken down through subcutaneous tissues with hemostasis achieved along way using electrocautery. Fascia alexandra was divided along the length of the incision. The muscle was then divided bluntly to the tip of trochanter. Using a curved awl and under fluoroscopic guidance tip of the trochanter was entered. The guidewire was then subsequently passed through the curved awl and was successfully passed into the distal segment. the short gamma nail was selected. This nail at 125 degree angle was selected and brought up onto the table. The step Reamer was used in standard fashion. Flexible Reamer was used in order to ensure a canal with of 12.5 mm. The nail was then assembled onto the guide in standard fashion and then passed over the guidewire across the fracture site when the guidewire was then removed. The nail was then seated until he was in the appropriate position for the lag screw. Through a stab incision using the guide for the 125 degree angle, the guides were set onto the lateral surface of the femur. Under fluoroscopic guidance the guidewire was inserted just inferior to the midline on the AP view and into the center of the head on the lateral view. This was measured 90 mm and this leg screw was selected and brought up onto the table. The guidewire was over reamed under fluoroscopic guidance. The lag screw was then inserted until it was into the subchondral bone with excellent purchase. The set screw was then placed in standard fashion. The distal lock was placed in standard fashion through the guides. It was drilled measured and a 37.5 mm distal lock was selected.And then the guide was removed. Final imaging was taken in all positions. And then we proceeded to closure. Proximal wound was closed using 2. Dexon deep and 2-0 Dexon to approximate the skin. the skin was closed with maite. Similarly the distal incisions were closed with interrupted 2-0 Dexon and then maite. Sterile dressings were then applied. The patient's anesthesia was then reversed. They were taken out of traction and transferred supine to the room bed then to the recovery room in good condition. Intraoperatively there was approximately 50 cc of blood loss. No intraop transfusions or complications
--- NOTE | 2021-02-16 14:35 | PC.NURSE ---
Skin assessment completed today. Patient has Psoriasis on torso and upper extremities. Bruising on arms. No open wounds found.
--- NOTE | 2021-02-16 15:24 | P.PNIM_ITS ---
Subjective Subjective Date of Service: 02/16/21 Interval History: RLE pain no chest pain no dyspnea Physical Exam Vital Signs: Vital Signs: Last Vital Signs Temp 98.1 F 02/16/21 14:40 Pulse 96 02/16/21 14:55 Resp 18 02/16/21 14:55 BP 112/69 02/16/21 14:55 Pulse Ox 99 02/16/21 14:55 Body Mass Index 24.8 Gen: in pain HEENT: sclera anicteric, moist mucus membranes Neck: supple Lungs: clear to auscultation bilaterally Heart: regular rate and rhythm, no murmurs Abd: soft, non-tender, non-distended Ext: no edema, R hip ROM limited by pain Skin: warm/well-perfused Neuro: alert, no focal findings, oriented to self/place Psych: appropriate affect Objective Data Current Medications Generic Name Dose Route Start Last Admin Trade Name Freq PRN Reason Stop Dose Admin Acetaminophen 650 mg 02/15/21 05:37 Acetaminophen 325 Mg Tablet PO Q6H PRN Pain, Mild (Pain Scale 1-3) Amlodipine Besylate 5 mg 02/16/21 09:00 02/16/21 09:13 Amlodipine Besylate 5 Mg Tablet PO Not Given DAILY MIRIAN Protocol Donepezil HCl 10 mg 02/15/21 09:00 02/16/21 09:14 Donepezil Hcl 10 Mg Tablet PO Not Given DAILY MIRIAN Fentanyl 25 mcg 02/16/21 11:05 Fentanyl Citrate/Pf 100 Mcg/2 Ml Vial IVPUSH Q5M PRN Pain, Moderate (Pain Scale 4-6 Heparin Sodium (Porcine) 5,000 unit 02/15/21 05:45 02/16/21 04:04 Heparin Sodium,Porcine 5,000 Unit/Ml Vial SUBCUT Not Given Q12H MIRIAN Hydromorphone HCl 0.5 mg 02/16/21 02:48 02/16/21 03:13 Hydromorphone Hcl 0.5 Mg/0.5 Ml Syringe IVPUSH 0.5 mg Q6H PRN Administration Breakthrough Pain Dextrose/Sodium Chloride 1,000 mls @ 50 mls/hr 02/15/21 05:45 02/16/21 03:55 D51/2ns IVCONT 50 mls/hr .Q20H MIRIAN Administration Lactated Ringer's 500 mls @ 20 mls/hr 02/16/21 11:15 02/16/21 11:27 Lr IVCONT 20 mls/hr .Q24H MIRIAN Administration Levetiracetam 250 mg 02/15/21 09:00 02/16/21 09:12 Levetiracetam 250 Mg Tablet PO 250 mg BID MIRIAN Administration Levothyroxine Sodium 25 mcg 02/15/21 09:00 02/16/21 09:12 Levothyroxine Sodium 25 Mcg Tablet PO 25 mcg DAILY MIRIAN Administration Magnesium Hydroxide 30 ml 02/15/21 05:37 Milk Of Magnesia 30 Ml Oral.Susp PO DAILY PRN Constipation Oxycodone HCl 5 mg 02/15/21 05:37 02/16/21 00:14 Oxycodone Hcl Immed Release 5 Mg Tablet PO 5 mg Q6H PRN Administration Pain, Severe (Pain Scale 7-10) Phenytoin Sodium 100 mg 02/15/21 09:00 02/16/21 09:12 Phenytoin Sodium Extended 100 Mg Capsule PO 100 mg TID MIRIAN Administration Pravastatin Sodium 80 mg 02/15/21 21:00 02/15/21 21:56 Pravastatin Sodium 80 Mg Tablet PO 80 mg BEDTIME MIRIAN Administration Sertraline HCl 25 mg 02/15/21 09:00 02/16/21 09:14 Sertraline Hcl 25 Mg Tablet PO Not Given DAILY [facility] Sodium Chloride 3 ml 02/15/21 08:00 02/16/21 09:15 0.9 % Sodium Chloride Flush 3 Ml Syringe IVFLUSH Not Given QSHIFT [facility] Labs CBC & Chem 7: 02/16/21 05:12 02/16/21 05:12 Labs: Laboratory Results - last 24 hr 02/16/21 02/16/21 05:12 05:12 WBC 10.8 RBC 4.83 Hgb 14.5 Hct 41.3 L MCV 85.5 MCH 30.0 MCHC 35.1 RDW 14.5 Plt Count 289 D MPV 11.0 Immature Gran % (Auto) 0.5 H Neut % (Auto) 87.4 H Lymph % (Auto) 2.8 L Power % (Auto) 9.2 Eos % (Auto) 0.0 Baso % (Auto) 0.1 Lymph # (Auto) 0.3 L Power # (Auto) 1.0 Eos # (Auto) 0.0 Baso # (Auto) 0.0 Abs Immat Gran (auto) 0.05 H Absolute Neuts (auto) 9.4 H Absolute Nucleated RBC 0.000 Nucleated RBC % (auto) 0.0 Sodium 131 L Potassium 4.1 Chloride 97 Carbon Dioxide 23 Anion Gap 15 BUN 12 Creatinine 0.81 Estim Creat Clear Calc 61.8 Estimated GFR > 60 Random Glucose 145 H D Calcium 8.8 Quality Stroke Does the patient have a stroke diagnosis?: No VTE Prior VTE?: No VTE Risk Level:: Surgical - high VTE Device Contraindication: N/A - Device Ordered VTE Drug Contraindication: N/A - Med Ordered Assessment and Plan (1) Intertrochanteric fracture of right hip: Status: Acute Assessment and Plan: hospital d#2 70yo M SNF resident with HTN, HLD, hypothyroidism, seizure disorder, dementia admitted for intertrochanteric R hip fracture sustained after mechanical fall # R femur fx - ORIF today # HTN - continue amlodipine # HLD - continue statin # seizure disorder - continue levetiracetam + phenytoin # dementia - continue donepezil + sertraline # hypothyroidism - continue LT4 # VTE ppx - UFH, will need extended ppx after ORIF of hip
[2021-02-16] MEDS: Heparin Sodium,Porcine 5,000 UNIT/ML VIAL 5000 UNIT SUBCUT (16:58)
--- NOTE | 2021-02-16 17:09 | PC.NURSE ---
Pt arrived back to [facility] at 1610 and report obtained at bedside by PACU nurse. VSS, no pain, oriented to self only, d51/2ns at 50ml/hr, dressing right hip x3 C/D/I, dorsalis pedis pulses palpable.
[2021-02-16] MEDS: ceFAZolin Sodium/Dextrose,Iso 2 GM/50 ML PIGGYBACK IV (20:38)
[2021-02-16] MEDS: Pravastatin Sodium 80 MG TABLET PO (20:38)
[2021-02-16] MEDS: 0.9 % Sodium Chloride Flush 3 ML SYRINGE IVFLUSH (20:39)
[2021-02-17] VITALS (7 sets, daily range): BP systolic 102–144; BP diastolic 56–93; PULSE 77–114; RESP 14–19; TEMP 36.3–37.1; O2SAT 93–97
[2021-02-17] MEDS: Dextrose 5 % and 0.45 % NaCl 1,000 ML 50 ML IVCONT (05:14)
[2021-02-17] MEDS: oxyCODONE HCl Immed Release 5 MG TABLET PO (05:15)
[2021-02-17] MEDS: Heparin Sodium,Porcine 5,000 UNIT/ML VIAL 5000 UNIT SUBCUT ×2 (05:15→16:18)
[2021-02-17 05:59] LABS: Hematocrit 40.2 % (42-52); Hemoglobin 13.8 g/dl (14.0-18.0); Mean Corpuscular HGB Conc 34.3 g/dl (31.0-36.0); Mean Corpuscular Hemoglobin 29.9 pg (27.0-33.0); Mean Corpuscular Volume 87.2 fL (80-98); Platelet Count 295 X10*3/uL (160-400); Red Blood Count 4.61 X10*6/uL (4.60-5.80); Red Cell Distribution Width 14.6 % (11.0-16.0); White Blood Count 9.8 X10*3/uL (4.8-10.8)
[2021-02-17 06:40] LABS: Anion Gap 15 (12-20); Blood Urea Nitrogen 17 mg/dL (9-16); Calcium 8.4 mg/dL (8.4-10.2); Carbon Dioxide 23 mmol/L (22-29); Chloride 96 mmol/L (96-108); Creatinine Clr Calc Pharmacy 61.8; Estimated Glomerular Filt Rate > 60; Glucose Random 134 mg/dL (60-115); Potassium 4.1 mmol/L (3.3-5.1); Sodium 130 mmol/L (135-145)
--- NOTE | 2021-02-17 07:51 | PM.PNORT ---
Subjective Subjective Date of Service: 02/17/21 Interval history: POD1 s/p right hip short IMN with Dr. Ybarra. Patient is resting comfortably in bed. Confused at his normal baseline. No overnight events. Pain is well managed. No additional complaints. Physical Exam Vital Signs: Vital Signs: Last Vital Signs Temp 97.9 F 02/17/21 07:37 Pulse 111 H 02/17/21 07:37 Resp 18 02/17/21 07:37 BP 139/93 H 02/17/21 07:37 Pulse Ox 93 02/17/21 07:37 Body Mass Index 24.8 Const: General: cooperative, healthy appearing and no acute distress Resp: Effort & Inspection: normal respiratory effort and able to speak in complete sentences Cardio: Rate: regular rate Peripheral pulses: Peripheral pulses 2+ throughout GI: Palpation (GI): Soft to palpation Skin: Lesions: no lesions Rashes: no rashes Extrem: Other: Right hip dressings are clean, dry, and intact. No redness, ecchymosis, or drainage. NVI. Progress Note: A&P Assessment and plan (1) Intertrochanteric fracture of right hip: Status: Acute Assessment and Plan: Continue pain mgmnt Begin ASA for dvt ppx begin PT for right hip IM nail Dispo planning-Pending PT eval, pain mgmnt Fall Risk Details Current Medications: Current Medications Generic Name Dose Route Start Last Admin Trade Name Freq PRN Reason Stop Dose Admin Acetaminophen 650 mg 02/15/21 05:37 Acetaminophen 325 Mg Tablet PO Q6H PRN Pain, Mild (Pain Scale 1-3) Amlodipine Besylate 5 mg 02/16/21 09:00 02/16/21 09:13 Amlodipine Besylate 5 Mg Tablet PO Not Given DAILY [facility] Protocol Donepezil HCl 10 mg 02/15/21 09:00 02/16/21 09:14 Donepezil Hcl 10 Mg Tablet PO Not Given DAILY MIRIAN Fentanyl 25 mcg 02/16/21 11:05 Fentanyl Citrate/Pf 100 Mcg/2 Ml Vial IVPUSH Q5M PRN Pain, Moderate (Pain Scale 4-6 Heparin Sodium (Porcine) 5,000 unit 02/15/21 05:45 02/17/21 05:15 Heparin Sodium,Porcine 5,000 Unit/Ml Vial SUBCUT 5,000 unit Q12H MIRIAN Administration Hydromorphone HCl 0.5 mg 02/16/21 02:48 02/16/21 22:23 Hydromorphone Hcl 0.5 Mg/0.5 Ml Syringe IVPUSH 0.5 mg Q6H PRN Administration Breakthrough Pain Dextrose/Sodium Chloride 1,000 mls @ 50 mls/hr 02/15/21 05:45 02/17/21 05:14 D51/2ns IVCONT 50 mls/hr .Q20H MIRIAN Administration Lactated Ringer's 500 mls @ 20 mls/hr 02/16/21 11:15 02/16/21 11:27 Lr IVCONT 20 mls/hr .Q24H MIRIAN Administration Levetiracetam 250 mg 02/15/21 09:00 02/16/21 20:38 Levetiracetam 250 Mg Tablet PO 250 mg BID MIRIAN Administration Levothyroxine Sodium 25 mcg 02/15/21 09:00 02/16/21 09:12 Levothyroxine Sodium 25 Mcg Tablet PO 25 mcg DAILY MIRIAN Administration Magnesium Hydroxide 30 ml 02/15/21 05:37 Milk Of Magnesia 30 Ml Oral.Susp PO DAILY PRN Constipation Oxycodone HCl 5 mg 02/15/21 05:37 02/17/21 05:15 Oxycodone Hcl Immed Release 5 Mg Tablet PO 5 mg Q6H PRN Administration Pain, Severe (Pain Scale 7-10) Phenytoin Sodium 100 mg 02/15/21 09:00 02/16/21 20:38 Phenytoin Sodium Extended 100 Mg Capsule PO 100 mg TID MIRIAN Administration Pravastatin Sodium 80 mg 02/15/21 21:00 02/16/21 20:38 Pravastatin Sodium 80 Mg Tablet PO 80 mg BEDTIME MIRIAN Administration Sertraline HCl 25 mg 02/15/21 09:00 02/16/21 09:14 Sertraline Hcl 25 Mg Tablet PO Not Given DAILY MIRIAN Sodium Chloride 3 ml 02/15/21 08:00 02/16/21 20:39 0.9 % Sodium Chloride Flush 3 Ml Syringe IVFLUSH 3 ml QSHIFT MIRIAN Administration Sodium Chloride 3 ml 02/16/21 17:00 02/17/21 01:13 0.9 % Sodium Chloride Flush 3 Ml Syringe IVFLUSH Not Given QSHIFT MIRIAN Time Spent With Patient Time: Total time spent is greater than 50% in coordination of care (as documented) at patient's floor/unit and/or counseling patient: Time with patient: less than 15 minutes Procedures Date of Service Date of Service: 02/17/21 Quality Stroke Does the patient have a stroke diagnosis?: No VTE Prior VTE?: No VTE Risk Level:: Surgical - high VTE Device Contraindication: N/A - Device Ordered VTE Drug Contraindication: N/A - Med Ordered
[2021-02-17] MEDS: Phenytoin Sodium Extended 100 MG CAPSULE PO ×3 (08:11→21:57)
[2021-02-17] MEDS: amLODIPine Besylate 5 MG TABLET PO (08:12)
[2021-02-17] MEDS: 0.9 % Sodium Chloride Flush 3 ML SYRINGE IVFLUSH ×4 (08:12→21:58)
[2021-02-17] MEDS: levETIRAcetam 250 MG TABLET PO ×2 (08:13→21:57)
[2021-02-17] MEDS: Donepezil HCl 10 MG TABLET PO (08:13)
[2021-02-17] MEDS: Levothyroxine Sodium 25 MCG TABLET PO (08:13)
[2021-02-17] MEDS: Sertraline HCL 25 MG TABLET PO (08:13)
[2021-02-17] MEDS: Aspirin 325 MG TABLET PO ×2 (09:59→21:57)
[2021-02-17] MEDS: HYDROmorphone HCl 0.5 MG/0.5 ML SYRINGE IVPUSH (10:00)
--- NOTE | 2021-02-17 10:18 | HO.POSTANES ---
Post Anesthesia Evaluation Post Anesthesia Evaluation Vital Signs: Vital Signs Temp Pulse Resp BP Pulse Ox 02/17/21 08:12 111 H 139/93 H 02/17/21 07:37 97.9 F 111 H 18 139/93 H 93 02/17/21 04:00 98.3 F 97 14 131/86 93 02/16/21 23:28 98.1 F 92 16 119/76 94 02/16/21 22:23 18 Anesthesia: General Mental Status: Sedated (Sleeping comfortably with good respiratory effort) Pain Control: Satisfactory Nausea/Vomiting: None Hydration: Adequate Anesthesia-Related Issues: No Anes. Related Issues
[2021-02-17] MEDS: Lactated Ringers 1,000 ML 50 ML IVCONT (10:53)
--- NOTE | 2021-02-17 11:12 | PM.CNCAR ---
History of Present Illness History of Present Illness Date of Service: 02/17/21 Requesting physician: Anatoliy Boateng Chief complaint: PVC Narrative: 70-year-old gentleman background history of hypertension, hyperlipidemia, hypothyroidism, seizure disorder, dementia who is currently a correction resident who presented with fall. We were asked to assess him for PVCs seen on telemetry. Patient is postop at this stage. He is quite sleepy and could not answer any questions. He denied any pain and went back to sleep. Labs and ECG reviewed.. PMFSH Past Medical History Medical History Dementia Social History Social History Household Members: Other Housing: [facility] Do you presently have visiting nurse or other home services: No Alcohol intake: never Patient Tobacco Use Status: Never used Tobacco Meds Allergies Allergy/AdvReac Type Severity Reaction Status Date / Time No Known Allergies Allergy Verified 02/15/21 07:24 [No Known Allergies*] Active Medications: Current Medications Generic Name Dose Route Start Last Admin Trade Name Freq PRN Reason Stop Dose Admin Acetaminophen 650 mg 02/15/21 05:37 Acetaminophen 325 Mg Tablet PO Q6H PRN Pain, Mild (Pain Scale 1-3) Amlodipine Besylate 5 mg 02/16/21 09:00 02/17/21 08:12 Amlodipine Besylate 5 Mg Tablet PO 5 mg DAILY MIRIAN Administration Protocol Aspirin 325 mg 02/17/21 09:00 02/17/21 09:59 Aspirin 325 Mg Tablet PO 325 mg BID MIRAIN Administration Donepezil HCl 10 mg 02/15/21 09:00 02/17/21 08:13 Donepezil Hcl 10 Mg Tablet PO 10 mg DAILY MIRIAN Administration Fentanyl 25 mcg 02/16/21 11:05 Fentanyl Citrate/Pf 100 Mcg/2 Ml Vial IVPUSH Q5M PRN Pain, Moderate (Pain Scale 4-6 Heparin Sodium (Porcine) 5,000 unit 02/15/21 05:45 02/17/21 05:15 Heparin Sodium,Porcine 5,000 Unit/Ml Vial SUBCUT 5,000 unit Q12H MIRIAN Administration Hydromorphone HCl 0.5 mg 02/16/21 02:48 02/17/21 10:00 Hydromorphone Hcl 0.5 Mg/0.5 Ml Syringe IVPUSH 0.5 mg Q6H PRN Administration Breakthrough Pain Lactated Ringer's 500 mls @ 20 mls/hr 02/16/21 11:15 02/17/21 11:05 Lr IVCONT Infused .Q24H MIRIAN Infusion Lactated Ringer's 1,000 mls @ 50 mls/hr 02/17/21 10:30 02/17/21 11:01 Lr IVCONT Infused .Q20H MIRIAN Infusion Levetiracetam 250 mg 02/15/21 09:00 02/17/21 08:13 Levetiracetam 250 Mg Tablet PO 250 mg BID MIRIAN Administration Levothyroxine Sodium 25 mcg 02/15/21 09:00 02/17/21 08:13 Levothyroxine Sodium 25 Mcg Tablet PO 25 mcg DAILY MIRIAN Administration Magnesium Hydroxide 30 ml 02/15/21 05:37 Milk Of Magnesia 30 Ml Oral.Susp PO DAILY PRN Constipation Oxycodone HCl 5 mg 02/15/21 05:37 02/17/21 05:15 Oxycodone Hcl Immed Release 5 Mg Tablet PO 5 mg Q6H PRN Administration Pain, Severe (Pain Scale 7-10) Phenytoin Sodium 100 mg 02/15/21 09:00 02/17/21 08:11 Phenytoin Sodium Extended 100 Mg Capsule PO 100 mg TID MIRIAN Administration Pravastatin Sodium 80 mg 02/15/21 21:00 02/16/21 20:38 Pravastatin Sodium 80 Mg Tablet PO 80 mg BEDTIME MIRIAN Administration Sertraline HCl 25 mg 02/15/21 09:00 02/17/21 08:13 Sertraline Hcl 25 Mg Tablet PO 25 mg DAILY MIRIAN Administration Sodium Chloride 3 ml 02/15/21 08:00 02/17/21 08:12 0.9 % Sodium Chloride Flush 3 Ml Syringe IVFLUSH 3 ml QSHIFT MIRIAN Administration Sodium Chloride 3 ml 02/16/21 17:00 02/17/21 08:12 0.9 % Sodium Chloride Flush 3 Ml Syringe IVFLUSH Not Given QSHIFT [facility] Home Medications Medication Instructions Recorded Confirmed Last Taken Type acetaminophen [Tylenol] 650 mg PO Q4H PRN 02/15/21 02/15/21 Unknown History amlodipine 1 tab PO DAILY 02/15/21 02/15/21 Unknown History bisacodyl 10 mg [place] DAILY PRN 02/15/21 02/15/21 Unknown History donepezil 1 tab PO BEDTIME 02/15/21 02/15/21 Unknown History folic acid 1 mg PO DAILY 02/15/21 02/15/21 Unknown History levetiracetam 1 tab PO BID 02/15/21 02/15/21 Unknown History levothyroxine 1 tab PO DAILY 02/15/21 02/15/21 Unknown History magnesium hydroxide [Milk of 30 ml PO DAILY PRN 02/15/21 02/15/21 Unknown History Magnesia] nystatin [Nystop] 1 appl TOPICAL BID PRN 02/15/21 02/15/21 Unknown History phenytoin sodium extended 1 cap PO BEDTIME 02/15/21 02/15/21 Unknown History phenytoin sodium extended 2 cap PO DAILY 02/15/21 02/15/21 Unknown History pravastatin 1 tab PO BEDTIME 02/15/21 02/15/21 Unknown History sertraline 1 tab PO DAILY 02/15/21 02/15/21 Unknown History Physical Exam Vital Signs: Vital Signs: Last Vital Signs Temp 97.9 F 02/17/21 07:37 Pulse 111 H 02/17/21 08:12 Resp 18 02/17/21 07:37 BP 139/93 H 02/17/21 08:12 Pulse Ox 93 02/17/21 07:37 Body Mass Index 24.8 GENERAL APPEARANCE: in no acute distress, somnolent. SKIN: no suspicious lesions, warm and dry. HEART: no murmurs, regular tachycardia. LUNGS: clear to auscultation bilaterally. ABDOMEN: soft, nontender. EXTREMITIES: no edema. PERIPHERAL PULSES: equal. NEUROLOGIC: Somnolent. Results Labs and Meds Result diagrams: 02/17/21 05:45 02/17/21 05:45 Lab results: Laboratory Results - last 24 hr 02/17/21 02/17/21 05:45 05:45 WBC 9.8 RBC 4.61 Hgb 13.8 L Hct 40.2 L MCV 87.2 MCH 29.9 MCHC 34.3 RDW 14.6 Plt Count 295 MPV 11.0 Absolute Nucleated RBC 0.000 Nucleated RBC % (auto) 0.0 Sodium 130 L Potassium 4.1 Chloride 96 Carbon Dioxide 23 Anion Gap 15 BUN 17 H Creatinine 0.81 Estim Creat Clear Calc 61.8 Estimated GFR > 60 Random Glucose 134 H Calcium 8.4 Imaging Radiologist's impression: Impressions Guidance Fluoroscopy 02/16/21 11:27 IMPRESSION: Normal right femoral neck alignment status post internal stabilization with intramedullary femoral marsha and a hip nail with fracture fragments in alignment. There is no dislocation. Assessment and Plan (1) Asymptomatic PVCs: Status: Acute 70-year-old gentleman with mechanical fall and right hip fracture. Was noticed to have PVCs on telemetry. Currently quite somnolent and history is not possible. Monitor electrolytes closely. If persistent PVCs are seen then beta-dudley can be tried. Hydration and pain control. We are signing off for now. Thank you for allowing me to participate in the care of your patient. Please feel free to contact me if you have any questions. Procedures Date of Service Date of Service: 02/17/21
--- NOTE | 2021-02-17 12:44 | P.PNIM_ITS ---
Subjective Subjective Date of Service: 02/17/21 Interval History: pain with movement of R leg tachycardic no chest pain no dyspnea Physical Exam Vital Signs: Vital Signs: Last Vital Signs Temp 97.4 F 02/17/21 11:16 Pulse 114 H 02/17/21 11:16 Resp 16 02/17/21 11:16 BP 104/56 L 02/17/21 11:16 Pulse Ox 94 02/17/21 11:16 Body Mass Index 24.8 Gen: in pain, weak-appearing HEENT: sclera anicteric, moist mucus membranes Neck: supple Lungs: clear to auscultation bilaterally Heart: tachycardic, regular, no murmurs Abd: soft, non-tender, non-distended Ext: no edema, R hip ROM limited by pain Skin: warm/well-perfused Neuro: alert, no focal findings, oriented to self only Psych: appropriate affect Objective Data Current Medications Generic Name Dose Route Start Last Admin Trade Name Freq PRN Reason Stop Dose Admin Acetaminophen 650 mg 02/15/21 05:37 Acetaminophen 325 Mg Tablet PO Q6H PRN Pain, Mild (Pain Scale 1-3) Amlodipine Besylate 5 mg 02/16/21 09:00 02/17/21 08:12 Amlodipine Besylate 5 Mg Tablet PO 5 mg DAILY MIRIAN Administration Protocol Aspirin 325 mg 02/17/21 09:00 02/17/21 09:59 Aspirin 325 Mg Tablet PO 325 mg BID MIRIAN Administration Donepezil HCl 10 mg 02/15/21 09:00 02/17/21 08:13 Donepezil Hcl 10 Mg Tablet PO 10 mg DAILY MIRIAN Administration Fentanyl 25 mcg 02/16/21 11:05 Fentanyl Citrate/Pf 100 Mcg/2 Ml Vial IVPUSH Q5M PRN Pain, Moderate (Pain Scale 4-6 Heparin Sodium (Porcine) 5,000 unit 02/15/21 05:45 02/17/21 05:15 Heparin Sodium,Porcine 5,000 Unit/Ml Vial SUBCUT 5,000 unit Q12H MIRIAN Administration Hydromorphone HCl 0.5 mg 02/16/21 02:48 02/17/21 10:00 Hydromorphone Hcl 0.5 Mg/0.5 Ml Syringe IVPUSH 0.5 mg Q6H PRN Administration Breakthrough Pain Lactated Ringer's 1,000 mls @ 50 mls/hr 02/17/21 10:30 02/17/21 11:01 Lr IVCONT Infused .Q20H MIRIAN Infusion Levetiracetam 250 mg 02/15/21 09:00 02/17/21 08:13 Levetiracetam 250 Mg Tablet PO 250 mg BID MIRIAN Administration Levothyroxine Sodium 25 mcg 02/15/21 09:00 02/17/21 08:13 Levothyroxine Sodium 25 Mcg Tablet PO 25 mcg DAILY MIRIAN Administration Magnesium Hydroxide 30 ml 02/15/21 05:37 Milk Of Magnesia 30 Ml Oral.Susp PO DAILY PRN Constipation Oxycodone HCl 5 mg 02/15/21 05:37 02/17/21 05:15 Oxycodone Hcl Immed Release 5 Mg Tablet PO 5 mg Q6H PRN Administration Pain, Severe (Pain Scale 7-10) Phenytoin Sodium 100 mg 02/15/21 09:00 02/17/21 08:11 Phenytoin Sodium Extended 100 Mg Capsule PO 100 mg TID MIRIAN Administration Pravastatin Sodium 80 mg 02/15/21 21:00 02/16/21 20:38 Pravastatin Sodium 80 Mg Tablet PO 80 mg BEDTIME MIRIAN Administration Sertraline HCl 25 mg 02/15/21 09:00 02/17/21 08:13 Sertraline Hcl 25 Mg Tablet PO 25 mg DAILY MIRIAN Administration Sodium Chloride 3 ml 02/15/21 08:00 02/17/21 08:12 0.9 % Sodium Chloride Flush 3 Ml Syringe IVFLUSH 3 ml QSNEFT MIRIAN Administration Sodium Chloride 3 ml 02/16/21 17:00 02/17/21 08:12 0.9 % Sodium Chloride Flush 3 Ml Syringe IVFLUSH Not Given QSHIFT [facility] Labs CBC & Chem 7: 02/17/21 05:45 02/17/21 05:45 Labs: Laboratory Results - last 24 hr 02/17/21 02/17/21 05:45 05:45 WBC 9.8 RBC 4.61 Hgb 13.8 L Hct 40.2 L MCV 87.2 MCH 29.9 MCHC 34.3 RDW 14.6 Plt Count 295 MPV 11.0 Absolute Nucleated RBC 0.000 Nucleated RBC % (auto) 0.0 Sodium 130 L Potassium 4.1 Chloride 96 Carbon Dioxide 23 Anion Gap 15 BUN 17 H Creatinine 0.81 Estim Creat Clear Calc 61.8 Estimated GFR > 60 Random Glucose 134 H Calcium 8.4 Quality Stroke Does the patient have a stroke diagnosis?: No VTE Prior VTE?: No VTE Risk Level:: Surgical - high VTE Device Contraindication: N/A - Device Ordered VTE Drug Contraindication: N/A - Med Ordered Assessment and Plan (1) Intertrochanteric fracture of right hip: Status: Acute Assessment and Plan: hospital d#3 70yo M SNF resident with HTN, HLD, hypothyroidism, seizure disorder, dementia admitted for intertrochanteric R hip fracture sustained after mechanical fall # R femur fx - POD#1 IMN # HTN - continue amlodipine # HLD - continue statin # seizure disorder - continue levetiracetam + phenytoin # dementia - continue donepezil + sertraline # hypothyroidism - continue LT4 # VTE ppx - bid ASA x28d, started
[2021-02-17] MEDS: Pravastatin Sodium 80 MG TABLET PO (21:57)
[2021-02-18 03:19] VITALS: BP 117/69; PULSE 85; RESP 17; TEMP 36.8; O2SAT 97
[2021-02-18] MEDS: Heparin Sodium,Porcine 5,000 UNIT/ML VIAL 5000 UNIT SUBCUT (05:33)
[2021-02-18 06:29] LABS: Hemoglobin 11.3 g/dl (14.0-18.0)
[2021-02-18 07:01] LABS: Anion Gap 17 (12-20); Blood Urea Nitrogen 24 mg/dL (9-16); Calcium 8.2 mg/dL (8.4-10.2); Carbon Dioxide 21 mmol/L (22-29); Chloride 99 mmol/L (96-108); Creatinine Clr Calc Pharmacy 64.2; Estimated Glomerular Filt Rate > 60; Glucose Random 90 mg/dL (60-115); Potassium 4.9 mmol/L (3.3-5.1); Sodium 132 mmol/L (135-145)
[2021-02-18] MEDS: oxyCODONE HCl Immed Release 5 MG TABLET PO ×2 (07:34→13:54)
[2021-02-18] MEDS: Donepezil HCl 10 MG TABLET PO (07:34)
[2021-02-18] MEDS: Sertraline HCL 25 MG TABLET PO (07:34)
[2021-02-18] MEDS: levETIRAcetam 250 MG TABLET PO ×2 (07:34→22:11)
[2021-02-18] MEDS: amLODIPine Besylate 5 MG TABLET PO (07:34)
[2021-02-18] MEDS: Phenytoin Sodium Extended 100 MG CAPSULE PO ×3 (07:34→22:11)
[2021-02-18] MEDS: Levothyroxine Sodium 25 MCG TABLET PO (07:34)
[2021-02-18] MEDS: Aspirin 325 MG TABLET PO ×2 (07:35→22:11)
[2021-02-18 07:51] VITALS: BP 146/82; PULSE 85; RESP 20; TEMP 36.3; O2SAT 96
--- NOTE | 2021-02-18 08:28 | P.PNOP_ITS ---
Subjective Subjective Date of Service: 02/18/21 Interval history: POD2 righ hip short IM Nail with Dr. Ybarra. Patient is resting comfortably in bed. Confused at his baseline. No overnight events. No additional complaints. Physical Exam 2 Vital Signs: Vital Signs: Last Vital Signs Temp 97.4 F 02/18/21 07:51 Pulse 85 02/18/21 07:51 Resp 20 02/18/21 07:51 BP 146/82 H 02/18/21 07:51 Pulse Ox 96 02/18/21 07:51 Body Mass Index 24.8 Const: General: cooperative, healthy appearing and no acute distress Resp: Effort & Inspection: normal respiratory effort and able to speak in complete sentences Cardio: Rate: regular rate Peripheral pulses: Peripheral pulses 2+ throughout GI: Palpation (GI): Soft to palpation Skin: Lesions: no lesions Rashes: no rashes Extrem: Other: Right hip dressings are clean, dry, and intact. No redness, ecchymosis, or drainage. NVI. Progress Note: A&P Assessment and plan (1) Intertrochanteric fracture of right hip: Status: Acute Assessment and Plan: Continue pain mgmnt Continue Aspirin for dvt ppx. D/C Heparin Continue PT for right hip IM Nail Dispo planning-Pending, pain mgmnt and medicine clearance. May be d/c'ed from ortho perspective. Fall Risk Details Current Medications: Current Medications Generic Name Dose Route Start Last Admin Trade Name Freq PRN Reason Stop Dose Admin Acetaminophen 650 mg 02/15/21 05:37 Acetaminophen 325 Mg Tablet PO Q6H PRN Pain, Mild (Pain Scale 1-3) Amlodipine Besylate 5 mg 02/16/21 09:00 02/18/21 07:34 Amlodipine Besylate 5 Mg Tablet PO 5 mg DAILY MIRIAN Administration Protocol Aspirin 325 mg 02/17/21 09:00 02/18/21 07:35 Aspirin 325 Mg Tablet PO 325 mg BID MIRIAN Administration Donepezil HCl 10 mg 02/15/21 09:00 02/18/21 07:34 Donepezil Hcl 10 Mg Tablet PO 10 mg DAILY MIRIAN Administration Fentanyl 25 mcg 02/16/21 11:05 Fentanyl Citrate/Pf 100 Mcg/2 Ml Vial IVPUSH Q5M PRN Pain, Moderate (Pain Scale 4-6 Heparin Sodium (Porcine) 5,000 unit 02/15/21 05:45 02/18/21 05:33 Heparin Sodium,Porcine 5,000 Unit/Ml Vial SUBCUT 5,000 unit Q12H MIRIAN Administration Hydromorphone HCl 0.5 mg 02/16/21 02:48 02/17/21 10:00 Hydromorphone Hcl 0.5 Mg/0.5 Ml Syringe IVPUSH 0.5 mg Q6H PRN Administration Breakthrough Pain Lactated Ringer's 1,000 mls @ 50 mls/hr 02/17/21 10:30 02/18/21 07:34 Lr IVCONT Not Given .Q20H MIRIAN Levetiracetam 250 mg 02/15/21 09:00 02/18/21 07:34 Levetiracetam 250 Mg Tablet PO 250 mg BID MIRIAN Administration Levothyroxine Sodium 25 mcg 02/15/21 09:00 02/18/21 07:34 Levothyroxine Sodium 25 Mcg Tablet PO 25 mcg DAILY MIRIAN Administration Magnesium Hydroxide 30 ml 02/15/21 05:37 Milk Of Magnesia 30 Ml Oral.Susp PO DAILY PRN Constipation Oxycodone HCl 5 mg 02/15/21 05:37 02/18/21 07:34 Oxycodone Hcl Immed Release 5 Mg Tablet PO 5 mg Q6H PRN Administration Pain, Severe (Pain Scale 7-10) Phenytoin Sodium 100 mg 02/15/21 09:00 02/18/21 07:34 Phenytoin Sodium Extended 100 Mg Capsule PO 100 mg TID MIRIAN Administration Pravastatin Sodium 80 mg 02/15/21 21:00 02/17/21 21:57 Pravastatin Sodium 80 Mg Tablet PO 80 mg BEDTIME MIRIAN Administration Sertraline HCl 25 mg 02/15/21 09:00 02/18/21 07:34 Sertraline Hcl 25 Mg Tablet PO 25 mg DAILY MIRIAN Administration Sodium Chloride 3 ml 02/15/21 08:00 02/18/21 07:35 0.9 % Sodium Chloride Flush 3 Ml Syringe IVFLUSH Not Given QSHIFT MIRIAN Sodium Chloride 3 ml 02/16/21 17:00 02/18/21 07:35 0.9 % Sodium Chloride Flush 3 Ml Syringe IVFLUSH Not Given QSHIFT MIRIAN Time Spent With Patient Time: Total time spent is greater than 50% in coordination of care (as documented) at patient's floor/unit and/or counseling patient: Time with patient: less than 15 minutes Procedures Date of Service Date of Service: 02/18/21 Quality Stroke Does the patient have a stroke diagnosis?: No VTE Prior VTE?: No VTE Risk Level:: Surgical - high VTE Device Contraindication: N/A - Device Ordered VTE Drug Contraindication: N/A - Med Ordered
[2021-02-18 11:20] VITALS: BP 121/79; PULSE 87; RESP 20; TEMP 36.6; O2SAT 96
--- NOTE | 2021-02-18 11:48 | HO.PM.IMPN ---
Subjective Subjective Date of Service: 02/18/21 Interval History: c/o R hip pain tachycardia improved no nausea/vomiting no dyspnea Physical Exam Vital Signs: Vital Signs: Last Vital Signs Temp 97.8 F 02/18/21 11:20 Pulse 87 02/18/21 11:20 Resp 20 02/18/21 11:20 BP 121/79 02/18/21 11:20 Pulse Ox 96 02/18/21 11:20 Body Mass Index 24.8 Gen: in pain, weak-appearing HEENT: sclera anicteric, moist mucus membranes Neck: supple Lungs: clear to auscultation bilaterally Heart: regular rate and rhythm, no murmurs Abd: soft, non-tender, non-distended Ext: no edema, R hip ROM limited by pain Skin: warm/well-perfused Neuro: alert, no focal findings, oriented to self only Psych: appropriate affect Objective Data Current Medications Generic Name Dose Route Start Last Admin Trade Name Freq PRN Reason Stop Dose Admin Acetaminophen 650 mg 02/15/21 05:37 Acetaminophen 325 Mg Tablet PO Q6H PRN Pain, Mild (Pain Scale 1-3) Amlodipine Besylate 5 mg 02/16/21 09:00 02/18/21 07:34 Amlodipine Besylate 5 Mg Tablet PO 5 mg DAILY MIRIAN Administration Protocol Aspirin 325 mg 02/17/21 09:00 02/18/21 07:35 Aspirin 325 Mg Tablet PO 325 mg BID MIRIAN Administration Donepezil HCl 10 mg 02/15/21 09:00 02/18/21 07:34 Donepezil Hcl 10 Mg Tablet PO 10 mg DAILY MIRIAN Administration Fentanyl 25 mcg 02/16/21 11:05 Fentanyl Citrate/Pf 100 Mcg/2 Ml Vial IVPUSH Q5M PRN Pain, Moderate (Pain Scale 4-6 Hydromorphone HCl 0.5 mg 02/16/21 02:48 02/17/21 10:00 Hydromorphone Hcl 0.5 Mg/0.5 Ml Syringe IVPUSH 0.5 mg Q6H PRN Administration Breakthrough Pain Lactated Ringer's 1,000 mls @ 50 mls/hr 02/17/21 10:30 02/18/21 07:34 Lr IVCONT Not Given .Q20H MIRIAN Levetiracetam 250 mg 02/15/21 09:00 02/18/21 07:34 Levetiracetam 250 Mg Tablet PO 250 mg BID MIRIAN Administration Levothyroxine Sodium 25 mcg 02/15/21 09:00 02/18/21 07:34 Levothyroxine Sodium 25 Mcg Tablet PO 25 mcg DAILY MIRIAN Administration Magnesium Hydroxide 30 ml 02/15/21 05:37 Milk Of Magnesia 30 Ml Oral.Susp PO DAILY PRN Constipation Oxycodone HCl 5 mg 02/15/21 05:37 02/18/21 07:34 Oxycodone Hcl Immed Release 5 Mg Tablet PO 5 mg Q6H PRN Administration Pain, Severe (Pain Scale 7-10) Phenytoin Sodium 100 mg 02/15/21 09:00 02/18/21 07:34 Phenytoin Sodium Extended 100 Mg Capsule PO 100 mg TID MIRIAN Administration Pravastatin Sodium 80 mg 02/15/21 21:00 02/17/21 21:57 Pravastatin Sodium 80 Mg Tablet PO 80 mg BEDTIME MIRIAN Administration Sertraline HCl 25 mg 02/15/21 09:00 02/18/21 07:34 Sertraline Hcl 25 Mg Tablet PO 25 mg DAILY MIRIAN Administration Sodium Chloride 3 ml 02/15/21 08:00 02/18/21 07:35 0.9 % Sodium Chloride Flush 3 Ml Syringe IVFLUSH Not Given QSHIFT MIRIAN Sodium Chloride 3 ml 02/16/21 17:00 02/18/21 07:35 0.9 % Sodium Chloride Flush 3 Ml Syringe IVFLUSH Not Given QSHIFT [facility] Labs CBC & Chem 7: 02/18/21 05:30 02/18/21 05:30 Labs: Laboratory Results - last 24 hr 02/18/21 02/18/21 05:30 05:30 Hgb 11.3 L Sodium 132 L Potassium 4.9 Chloride 99 Carbon Dioxide 21 L Anion Gap 17 BUN 24 H Creatinine 0.78 Estim Creat Clear Calc 64.2 Estimated GFR > 60 Random Glucose 90 Calcium 8.2 L Quality Stroke Does the patient have a stroke diagnosis?: No VTE Prior VTE?: No VTE Risk Level:: Surgical - high VTE Device Contraindication: N/A - Device Ordered VTE Drug Contraindication: N/A - Med Ordered Assessment and Plan (1) Intertrochanteric fracture of right hip: Status: Acute Assessment and Plan: hospital d#4 70yo M SNF resident with HTN, HLD, hypothyroidism, seizure disorder, dementia admitted for intertrochanteric R hip fracture sustained after mechanical fall # R femur fx - POD#2 IMN, pain control, VTE ppx # HTN - continue amlodipine # HLD - continue statin # seizure disorder - continue levetiracetam + phenytoin # dementia - continue donepezil + sertraline # hypothyroidism - continue LT4 # VTE ppx - bid ASA x28d # dispo - likely back to [facility] tomorrow, will check COVID-19 ZAHIRA
[2021-02-18 12:40] LABS: COVID-19 Test Negative (Negative)
[2021-02-18 15:57] VITALS: BP 118/76; PULSE 66; RESP 19; TEMP 37.2; O2SAT 96
[2021-02-18] MEDS: 0.9 % Sodium Chloride Flush 3 ML SYRINGE IVFLUSH ×4 (16:53→22:38)
[2021-02-18 19:52] VITALS: BP 120/65; PULSE 65; RESP 19; TEMP 37.2; O2SAT 97
[2021-02-18] MEDS: Pravastatin Sodium 80 MG TABLET PO (22:11)
[2021-02-18 23:40] VITALS: BP 116/81; PULSE 90; RESP 18; TEMP 37.1; O2SAT 97
[2021-02-19] MEDS: Lactated Ringers 1,000 ML 50 ML IVCONT (03:56)
[2021-02-19 04:00] VITALS: BP 128/75; PULSE 87; RESP 18; TEMP 36.9; O2SAT 97
[2021-02-19 07:20] VITALS: BP 147/84; PULSE 85; RESP 20; TEMP 36.9; O2SAT 96
[2021-02-19 07:32] LABS: Hematocrit 30.6 % (42-52)
[2021-02-19 07:33] LABS: Anion Gap 13 (12-20); Blood Urea Nitrogen 16 mg/dL (9-16); Calcium 7.9 mg/dL (8.4-10.2); Carbon Dioxide 21 mmol/L (22-29); Chloride 100 mmol/L (96-108); Creatinine Clr Calc Pharmacy 77.1; Estimated Glomerular Filt Rate > 60; Glucose Random 81 mg/dL (60-115); Potassium 4.3 mmol/L (3.3-5.1); Sodium 130 mmol/L (135-145)
[2021-02-19 07:49] LABS: Hemoglobin 10.8 g/dl (14.0-18.0)
[2021-02-19] MEDS: Aspirin 325 MG TABLET PO (08:19)
[2021-02-19] MEDS: 0.9 % Sodium Chloride Flush 3 ML SYRINGE IVFLUSH ×2 (08:19)
[2021-02-19 08:20] VITALS: BP 147/84; PULSE 85
[2021-02-19] MEDS: Phenytoin Sodium Extended 100 MG CAPSULE PO (08:20)
[2021-02-19] MEDS: Donepezil HCl 10 MG TABLET PO (08:20)
[2021-02-19] MEDS: levETIRAcetam 250 MG TABLET PO (08:20)
[2021-02-19] MEDS: amLODIPine Besylate 5 MG TABLET PO (08:20)
[2021-02-19] MEDS: Sertraline HCL 25 MG TABLET PO (08:20)
[2021-02-19] MEDS: Levothyroxine Sodium 25 MCG TABLET PO (08:20)
[2021-02-19 11:50] VITALS: BP 131/74; PULSE 83; RESP 20; TEMP 36.7; O2SAT 97
--- NOTE | 2021-02-19 12:54 | MHC.CM.PN ---
Addendum entered by Cee Foster 02/19/21 13:45: CM HAS BEEN UNABLE TO REACH THE LIAISON AT [facility]. LINDA CONTACTED THE CHARGE NURSE ON THE 4TH FLOOR AT [facility] AND INFORMED HER OF PTS PENDING RETURN. PT IS A BED HOLD AND THEREFORE WILL BE ACCEPTED BACK TODAY. CM WILL ARRANGE BLS TRANSPORT FOR 1530 HOURS AND HAVE PTS [facility] NURSE CALL FOR HAND OFF. Original Note: CM INFORMED PT CLEARED TO RETURN TO [facility] TODAY. LINDA CONTACTED PTS LEGAL GUARDIAN, MIQUEL DAMONRE ([phone]) AND INFORMED HIM OF PENDING DC. LINDA ALSO REVIEWED PTS MEDICARE RIGHTS AND OBTAINED AN ADDRESS FOR DOCUMENT TO BE SENT VIA CERTIFIED MAIL: [address] [facility], [place] [id number]. PT WILL DISCHARGE BACK TO LTC AT [facility] THIS AFTERNOON VIA BLS. TIME STILL TBD.
--- NOTE | 2021-02-19 12:58 | P.DS_ITS ---
DS: Providers Provider Date of Service: 02/19/21 Date of admission: 02/15/21 09:30 Primary care physician: Unknown Physician Consults: 02/15/21 05:37 Consult to Orthopedics Routine Consulting Provider: Amarilis Ybarra Reason for consultation: Femur Fx 02/16/21 00:18 Consult to Cardiology Routine Consulting Provider: Lisandro Nair Reason for consultation: frequent PVS/Bigeminy DS: Diagnosis Discharge Diagnosis (1) Intertrochanteric fracture of right hip: Status: Acute DS: Medications Discharge Medications Home Medications: Home Medications Medication Instructions Recorded Confirmed acetaminophen [Tylenol] 650 mg PO Q4H PRN 02/15/21 02/15/21 amlodipine 1 tab PO DAILY 02/15/21 02/15/21 bisacodyl 10 mg NH DAILY PRN 02/15/21 02/15/21 donepezil 1 tab PO BEDTIME 02/15/21 02/15/21 folic acid 1 mg PO DAILY 02/15/21 02/15/21 levetiracetam 1 tab PO BID 02/15/21 02/15/21 levothyroxine 1 tab PO DAILY 02/15/21 02/15/21 magnesium hydroxide [Milk of 30 ml PO DAILY PRN 02/15/21 02/15/21 Magnesia] nystatin [Nystop] 1 appl TOPICAL BID PRN 02/15/21 02/15/21 phenytoin sodium extended 1 cap PO BEDTIME 02/15/21 02/15/21 phenytoin sodium extended 2 cap PO DAILY 02/15/21 02/15/21 pravastatin 1 tab PO BEDTIME 02/15/21 02/15/21 sertraline 1 tab PO DAILY 02/15/21 02/15/21 Previous Rx's Medication Instructions Recorded aspirin 325 mg PO BID #60 tab 02/19/21 oxycodone 5 mg PO Q6H PRN #20 tab 02/19/21 DS: Summary Hospital Course Hospital Course: history presenting illness 70-year-old male with a past medical history of hypertension, hyperlipidemia, hypothyroidism, history of seizures, dementia, skilled nursing resident presented to the hospital with a chief complaint of fall. Patient reported that while he was walking he tripped over and fell on his right hip. Denies any head strike loss of consciousness. Complains of pain in the right hip. Denies any low back pain. Denies any numbness tingling. Denies any chest pain palpitations lightheadedness or dizziness. Denies any fever chills cough. Denies any urinary symptoms. Review of all other systems is negative except mentioned above ER course: Per ER team patient noted to have right hip tenderness, imaging showed committed impacted intertrochanteric fracture of the right proximal femur. Discussed with Dr. ybarra from orthopedics were recommended admission to the medicine service and will be evaluated in the morning. Patient neurovas cularly intact on the right lower extremity. hospital course 70yo M SNF resident with HTN, HLD, hypothyroidism, seizure disorder, dementia admitted for intertrochanteric R hip fracture sustained after mechanical fall, patient underwent surgery and had IMN, postoperative day 3 has good pain control, on aspirin 325 mg bid for VTE prophylaxis for 28 days, continue Tylenol and oxycodone for pain control, follow bowel movement while or narcotics, continue home medications as before, outpatient follow-up with Orthopedic surgery in 2 weeks, no seizure-like activity was noted while in- house. Time Spent with Patient Time attestation: Total time spent providing and/or coordinating discharge services: Discharge coordination time: Greater than 30 minutes Quality: Stroke Does the patient have a stroke diagnosis?: No Physical Exam Vital Signs: Vital Signs: Last Vital Signs Temp 98.1 F 02/19/21 11:50 Pulse 83 02/19/21 11:50 Resp 20 02/19/21 11:50 BP 131/74 02/19/21 11:50 Pulse Ox 97 02/19/21 11:50 Body Mass Index 24.8 Gen: No acute distress HEENT: sclera anicteric, moist mucus membranes Neck: supple Lungs: clear to auscultation bilaterally Heart: regular rate and rhythm, no murmurs Abd: soft, non-tender, non-distended Ext: no edema, R hip ROM limited by pain Skin: warm/well-perfused Neuro: alert, no focal findings, oriented to self only Psych: appropriate affect DS: Data Data Completed and Pending Labs on day of discharge: Laboratory Results - last 24 hr 02/19/21 02/19/21 06:18 06:18 Hgb 10.8 L Hct 30.6 L D Sodium 130 L Potassium 4.3 Chloride 100 Carbon Dioxide 21 L Anion Gap 13 BUN 16 Creatinine 0.65 Estim Creat Clear Calc 77.1 Estimated GFR > 60 Random Glucose 81 Calcium 7.9 L Discharge Plan Discharge Patient Disposition: Xfer SNF Discharge Diagnosis: Status post surgery for right intertrochanteric hip fracture hypertension Referrals: Jeffrey Verma PA-C [Physician Cell Attendant] - 1 Week (SundayMarch 02, @ 10:45 am) Discharge Medications: New aspirin 325 mg Tablet 325 mg PO BID Qty: 60 RF: 0 oxycodone 5 mg Tablet 5 mg PO Q6H PRN (Reason: Pain, Severe (Pain Scale 7-10)) Qty: 20 RF: 0 Continued donepezil 10 mg tablet 1 tab PO BEDTIME RF: 0 amlodipine 2.5 mg tablet 1 tab PO DAILY RF: 0 phenytoin sodium extended 100 mg capsule 2 cap PO DAILY RF: 0 levothyroxine 25 mcg tablet 1 tab PO DAILY RF: 0 pravastatin 80 mg tablet 1 tab PO BEDTIME RF: 0 levetiracetam 250 mg tablet 1 tab PO BID RF: 0 sertraline 25 mg tablet 1 tab PO DAILY RF: 0 acetaminophen [Tylenol] 325 mg Tablet 650 mg PO Q4H PRN (Reason: PAIN OR FEVER) RF: 0 phenytoin sodium extended 100 mg capsule 1 cap PO BEDTIME RF: 0 magnesium hydroxide [Milk of Magnesia] 400 mg/5 mL Suspension 30 ml PO DAILY PRN (Reason: Constipation) RF: 0 bisacodyl 10 mg Suppository 10 mg NH DAILY PRN (Reason: Constipation) RF: 0 folic acid 1 mg Tablet 1 mg PO DAILY RF: 0 nystatin [Nystop] 100,000 unit/gram powder 1 appl topical BID PRN (Reason: Rash) RF: 0 Discharge Orders: Discharge Order (Routine); Ordered 02/19/21 Ordered By: Judy Brooks Diet: regular diet Activity on Discharge: Use cane or walker Stand Alone Forms: Patient Portal Discharge page Care Plan Goals: status post right hip fracture continue physical therapy and outpatient follow- up with Orthopedic surgery, use pain medication as needed, continue aspirin and follow-up with ortho for duration Health Concerns: continue all baseline home medication Plan of Treatment: outpatient follow-up with primary care physician and Orthopedic surgery in 2 Assessment: Gait training, strengthening, ADLs Continue DVT ppx Keep dressing clean,dry and intact-no showering or tub baths Follow up with Orthopedics in 2 weeks
== END 2021-02-19 15:45 | disposition skilled nursing facility (03) | DRG 482 ==
LOC: HO.ED 03:07 → HO.EDOVER 05:52 → HO.IMC 12:13
PROVIDERS: Family Medicine; Orthopaedic Surgery; Admitting Provider Hospitalist; Emergency Provider Student in an Organized Health Care Education/Training Program; Visit Provider Hospitalist
PROC: 0QS634Z Reposition Right Upper Femur with Internal Fixation Device, Percutaneous Approach (ICD-10-PCS; principal; 2021-02-16 11:30)
DX: S72.141A Displaced intertrochanteric fracture of right femur, initial encounter for closed fracture (principal); F03.90 Unspecified dementia, unspecified severity, without behavioral disturbance, psychotic disturbance, mood disturbance, and anxiety; G40.909 Epilepsy, unspecified, not intractable, without status epilepticus; E78.5 Hyperlipidemia, unspecified; E03.9 Hypothyroidism, unspecified; I10 Essential (primary) hypertension; I49.3 Ventricular premature depolarization; W18.30XA Fall on same level, unspecified, initial encounter; Y93.9 Activity, unspecified; Y92.129 Unspecified place in nursing home as the place of occurrence of the external cause; Y99.9 Unspecified external cause status; Z20.822 Contact with and (suspected) exposure to COVID-19; Z79.890 Hormone replacement therapy; Z79.899 Other long term (current) drug therapy
CPT/HCPCS: 36415; 72170; 73502; 73700; 80048; 80053; 81001; 85014; 85018; 85025; 85027; 85610; 86850; 86900; 86901; 87635; 93005; 93306; 97110; 97163; 97166; 99285; C1713; C1769; J0131; J0690; J1100; J1170; J1885; J2370; J2405; J3010

== ENCOUNTER → 2021-02-23 11:58 | Outpatient (BNVA) | payer MEDICARE, MEDICAID, SELFPAY | PROVIDERS: Visit Provider Orthopaedic Surgery ==

== ENCOUNTER → 2021-03-02 10:33 | Outpatient (BNVA) | payer MEDICARE, MEDICAID, SELFPAY | PROVIDERS: PCP Family Medicine; Visit Provider Physician Assistant | DX: S72.141A Displaced intertrochanteric fracture of right femur, initial encounter for closed fracture (principal); X58.XXXA Exposure to other specified factors, initial encounter; Y93.9 Activity, unspecified; Y92.9 Unspecified place or not applicable; Y99.8 Other external cause status; I49.3 Ventricular premature depolarization; F03.90 Unspecified dementia, unspecified severity, without behavioral disturbance, psychotic disturbance, mood disturbance, and anxiety | CPT/HCPCS: 99212 ==

== ENCOUNTER 2021-04-06 05:52 | Outpatient (REF) | payer MEDICARE, MEDICAID, SELFPAY ==
--- NOTE | ~2021-04-06 | XR_ITS ---
EXAMINATION: XR HIP, RIGHT CLINICAL INFORMATION: Pain in right hip. COMPARISON: None TECHNIQUE: Two views of the right hip. FINDINGS: There is a right hip intramedullary femoral marsha and a right hip nail stabilizing femoral neck fracture in alignment. There is no abundant callus formation seen. There is no dislocation. Soft tissues are unremarkable. XR/XR hip RT min 2V IMPRESSION: Right femoral neck fracture and alignment status post ORIF in January 2021. No abundant callus formation is seen, however, there is no new fracture or dislocation.
== END 2021-04-06 05:53 | disposition home or self-care (01) ==
LOC: HO.HOSX 05:52
PROVIDERS: Visit Provider Physician Assistant
DX: S72.141D Displaced intertrochanteric fracture of right femur, subsequent encounter for closed fracture with routine healing (principal); X58.XXXD Exposure to other specified factors, subsequent encounter
CPT/HCPCS: 73502; 99212

== ENCOUNTER 2024-10-12 16:19 | Observation (INO) | payer MEDICARE, MEDICAID, SELFPAY ==
--- NOTE | ~2024-10-12 | XR_ITS ---
CLINICAL HISTORY: agressive, r o pna 2 view chest x-ray Comparison: CR - CHEST 1 VIEW [id number] - 12/25/12 13:09 EDT Findings: Low lung volumes. Asymmetric elevation of the right hemidiaphragm. Interposed loop of bowel between the diaphragm in the liver, incidentally noted. Mild cardiomegaly. Chronic fracture of the distal right clavicle. No acute osseous abnormality. Mild S shaped scoliosis of the thoracolumbar spine. IMPRESSION: 1. No acute findings. This document has been electronically signed by: Miller Sunshine MD on 10/12/2024 18:11:45
[2024-10-12 17:04] VITALS: BP 135/83; PULSE 62; RESP 17; TEMP 36.9; O2SAT 98; BMI 19.1
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
--- OUTSIDE RECORDS SUMMARY | 2024-10-12 17:19 | XMS_ITS | Data Portability ---
Author Organization [facility], Main Office Address [address] [facility], [address] [place] [address] Care Team Providers Care Top Hat Body Maker Name Role Phone FABIO ALFONSO - 4TH FLOOR OTHER Assessment No assessment recorded. Plan of Treatment Reminders Order Date Submit Date Provider Last Modified By Organization Details Last Modified Time Details Appointments None record ed. Lab None record ed. Referral None record ed. Procedures None record ed. Surgeries None record ed. Imaging None record ed. Medication Orders None record ed. Patient TargetsNo targets recorded. Patient InstructionsNo instructions recorded. Reason for Referral None Reported. Problems Name Problem SNOMED Code Status Onset Date Resolution Date Notes Provider Name and Address Organization Details Recorded Time Intertrochante marcus fracture 563568171 Active 2020 Amarilis mazariegos [facility] 1 10:16:36 Falls 118233805 Active 2020 Amarilis mazariegos [facility] 10:24:23 Unintentional weight loss 486924337 Active 2020 FELICE CESAR [address], [place], [address], [facility] 1 14:25:31 COVID-19 467920924 Active 2021 FELICE CESAR [address], [place], [address], [facility] 2 12:34:03 Mixed anxiety and depressive disorder 520643531 Active 2022 Yessy Krause MD [address], [place], [address], [facility] 3 15:49:30 Chronic pain 84314202 Active 2022 Yessy Krause MD [address], [address], [place], [address], [facility] 3 16:02:08 Psoriasis 5169436 Active 2018 Kamaljit Alonzo MD [address], [place], [address], [facility] 9 11:54:34 Dementia 26705780 Active 2018 Kamaljit Alonzo MD [address], [place], [address], [facility] 9 11:54:41 Seizure disorder 116911162 Active 2018 Kamaljit Alonzo MD [address], [address], [place], [address], [facility] 9 11:54:50 Essential hypertension 13049635 Active 2018 Kamaljit Alonzo MD [address], [place], [address], [facility] 9 11:55:00 Mixed hyperlipidemia 710188118 Active 2018 Kamaljit Alonzo MD [address], [address], [place], [address], [facility] 9 11:55:08 Hypothyroidism 21597081 Active 2018 Kamaljit Alonzo MD [address], [place], [address], [facility] 9 11:55:23 Syndrome of inappropriate vasopressin secretion 67971571 Active 2018 Kamaljit Alonzo MD [address], [address], [place], [address], [facility] 9 11:56:24 Traumatic brain injury 990587492 Active 2018 Kamaljit Alonzo MD [address], [address], [place], [address], [facility] 9 11:56:32 Chronic low back pain 317096770 Active 2018 Kamaljit Alonzo MD [address], [address], [place], [address], [facility] 11:56:49 Problem Notes None recorded. Procedures Surgical History Date Name Laterality Status Provider Name and Address Organization Details Recorded Time 021 fixation of intertrochanteric fracture of femur using nail completed FELICE CESAR [address], [address], [place], [address], [facility] 02/21/2021 17:08:24 Imaging Results None recorded. Procedure Notes None recorded. Medical Equipment None Reported. Allergies No known drug allergies Medications Not known to be on any medication Vitals Date Recorded Body height Body mass index (BMI) Body weight Heart rate Respiratory rate Body temperature Oxygen saturation Oxygen saturation in Arterial blood by Pulse oximetry Systolic blood pressure Diastolic blood pressure Provider Name and Address Organization Details Last Updated DateTime 4 160.02 cm 19.8 kg/m2 57788.3 5 g 78 /min 18 /min 98.6 [degF] 97 % 97 % 123 mm[Hg] 78 mm[Hg] Farzana Messer NP [address], [address], [place], [address], [facility] 4 18:09:06 Date Recorded Body height Body mass index (BMI) Body weight Heart rate Respiratory rate Body temperature Oxygen saturation Oxygen saturation in Arterial blood by Pulse oximetry Systolic blood pressure Diastolic blood pressure Provider Name and Address Organization Details Last Updated DateTime 4 160.02 cm 19.7 kg/m2 72026.7 5 g 78 /min 18 /min 98.6 [degF] 97 % 97 % 124 mm[Hg] 78 mm[Hg] Farzana Messer NP [address], [address], [place], [address], [facility] 4 13:05:36 Date Recorded Body height Body weight Heart rate Respiratory rate Body temperature Oxygen saturation Oxygen saturation in Arterial blood by Pulse oximetry Systolic blood pressure Diastolic blood pressure Provider Name and Address Organization Details Last Updated DateTime 4 160.02 cm 77515.3 5 g 76 /min 18 /min 97.6 [degF] 98 % 98 % 112 mm[Hg] 74 mm[Hg] Farzana Messer NP [address], [facility] [address], [place], [address], [facility] 4 10:25:09 Date Recorded Body height Heart rate Respiratory rate Body temperature Oxygen saturation Oxygen saturation in Arterial blood by Pulse oximetry Systolic blood pressure Diastolic blood pressure Provider Name and Address Organization Details Last Updated DateTime 4 160.02 cm 76 /min 18 /min 97.6 [degF] 98 % 98 % 112 mm[Hg] 74 mm[Hg] MARIA E ROBERSON NP [address], [address], [place], [address], [facility] 4 11:38:24 Date Recorded Body height Body mass index (BMI) Body weight Heart rate Respiratory rate Body temperature Oxygen saturation Oxygen saturation in Arterial blood by Pulse oximetry Systolic blood pressure Diastolic blood pressure Provider Name and Address Organization Details Last Updated DateTime 5 160.02 cm 20 kg/m2 70690.9 4 g 80 /min 18 /min 97.4 [degF] 97 % 97 % 122 mm[Hg] 76 mm[Hg] Farzana Messer NP [address] [facility] [address], [place], [address], [facility] 5 14:36:14 Social History Question Answer Notes LastModified by Organizat ion Details LastModified Time Tobacco Smoking Status Never Smoker Not Available [facility] 06/22/2020 03:13:20 Do You Have An Advance Directive? Yes Full Code (guardian Does Not Have Authority To Revise MOLST) [email or web address] Information not available 2022 What Is Your Level Of Alcohol Consumption? None [id number] Information not available 06/22/2020 How Much Tobacco Do You Chew? None [id number] Information not available 06/22/2020 What Is Your Code Status? Full Code Information not available 05/25/2021 Do You Or Have You Ever Used E-cigarettes Or Vape? Never Used Electronic Cigarettes [id number] Information not available 06/22/2020 Legal Guardian? Yes venu Informati on not available 05/25/2021 Do You Have A Medical Power Of Bulk Filler? No [email or web address] Information not available 2022 What Was The Date Of Your Most Recent Tobacco Screening? 09/15/2022 [email or web address] Information not available 2022 Do You Have An Out Of Hospital DNR? No Information not available 2022 Do You Or Have You Ever Used Smokeless Tobacco? Never Used Smokeless Tobacco [id number] Information not available 06/22/2020 How Much Tobacco Do You Smoke? No [id number] Information not available 06/22/2020 Do You Use Any Illicit Or Recreational Drugs? No [email or web address] Information not available 2022 Has Tobacco Cessation Counseling Been Provided? No N/A [email or web address] Information not available 2022 Do You Or Have You Ever Used Any Other Forms Of Tobacco Or Nicotine? No Information not available 05/25/2021 Sex: Unknown Functional Status None recorded. Mental Status None recorded. Family History Nothing Reported Notes:N/C Medical History No medical history recorded. Immunizations Vaccine Type Date Status Note Provider Nam e and Address Organization Details Recorded Time Influenza, split virus, quadrivalent, preservative 8 [facility]/18/2018 14:12:29 Influenza, high-dose, quadrivalent, PF 1 [facility] 08/02/2021 12:12:55 pneumococcal, unspecified formulation 7 completed [facility] 11/26/2018 13:16:37 COVID-19, mRNA, LNP-S, PF, 30 mcg/0.3 mL dose 1 completed JOHN WELCH PA-C [address], [address], [place], [address], [facility] 07/28/2022 14:51:55 COVID-19, mRNA, LNP-S, PF, 30 mcg/0.3 mL dose 2 completed JOHN WELCH PA-C [address], [place], [address], [facility] 07/28/2022 14:52:02 COVID-19, mRNA, LNP-S, bivalent, PF, 10 mcg/0.2 mL dose 2 completed JOHN WELCH PA-C [address], [address], [place], [address], [facility] 07/28/2022 14:52:16 Influenza, adjuvanted, quadrivalent, PF 2 completed Angeles mazariegos, [facility] 10/16/2023 13:55:38 influenza, unspecified formulation 9 completed Radha mazariegos, [facility] 08/12/2019 12:07:18 Influenza, split virus, quadrivalent, preservative 0 completed FELICE CESAR [address], [address], [place], [address], [facility] 10/26/2020 17:54:12 COVID-19, mRNA, LNP-S, PF, 30 mcg/0.3 mL dose 1 completed FELICE CESAR [address], [address], [place], [address], [facility] 10/26/2020 17:54:25 COVID-19, mRNA, LNP-S, PF, 30 mcg/0.3 mL dose 1 completed FELICE CESAR [address], [address], [place], [address], [facility] 10/26/2020 17:54:37 pneumococcal polysaccharide PPV23 3 completed FELICE CESAR [address], [address], [place], [address], [facility] 10/26/2020 17:55:17 Pneumococcal conjugate PCV 13 3 completed FELICE CESAR [address], [address], [place], [address], [facility] 10/26/2020 17:55:36 Past Encounters Encounter ID Performer Location Encounter Start Date Encounter Closed Date Diagnosis/Indication Diagnosis SNOMED-CT Code Diagnosis ICD10 Code Diagnosis Note [id number] Kamaljit Alonzo MD [address] [address] 09/18/2018 11:53:38 09/24/2018 16:17:03 Traumatic brain injury 401336653 S06.890D distant hx [facility] ship in place Syndrome o f inappropriate vasopressin secretion 12999254 E22.2 not on fluid restrictio nmonitor Na Psoriasis 3581870 L40.0 will startlidex cream bid to affected areas x 2 weeks then reassessno t to be used long termderm consult prn Seizure disorder 5577549 02 G40.89 keppra 250 mg [place] n 200 mg qam, 100 mg qhsmonitor for activitymo nitor med level Essential hypertension 05652577 I10 norvasc 2.5 mg qdmonitor bp Mixed hyperlipidemia 267 434983 E78.2 pravastati n 80 mg qdlipid panel with next blood work Hypothyroidism 96581907 E03.8 synthroid 25 mcg qdmonitor tsh Chronic low back pain 27 8725105 M54.5 at baseline monitor for sx control Dementia 28446982 F02.80 aricept 10 mg qdbaseline dementiagu ardianship in place [id number] FELICE CESAR [address] [address] 11/27/2018 18:08:49 11/29/2018 16:16:27 Essential hypertension 18437162 I10 norvasc 2.5 mg qdmonitor b/p and labs Dementia 79319572 F02.80 donepezil 10 mg qdexpect declinesup portive careguardi an in place Hypothyroidism 04692652 E03.8 levothyrox ine 25 mcg qdmonitor TSH Mixed hyperlipidemia 267 766305 E78.2 pravastati n 80 mg qdmonitor labs Seizure disorder 9899958 02 G40.802 keppra 250 mg bidphenyto in 200 mg q am and 100 mg q pmmonitor for seizures Chronic low back pain 27 9630841 M54.5 tylenol as neededmoni tor for pain [id number] Kamaljit Alonzo MD [address] [address] 01/22/2019 13:56:23 01/24/2019 15:28:49 Psoriasis 7387427 L40.0 continue hydrolatum as directedmo nitor rash Essential hypertension 46278098 I10 norvasc 2.5 mg qdmonitor bp Seizure disorder 6973506 02 G40.89 keppra 250 mg [place] n 200 mg qam, 100 mg qhsmonitor for activitymo nitor med level Mixed hyperlipidemia 267 718690 E78.2 pravastati n 80 mg qdlipid panel with annual [id number] Kamaljit Alonzo MD [facility] [address] [address] 03/21/2019 11:59:35 03/25/2019 16:00:21 Essential hypertension 05423494 I10 norvasc 2.5 mg qdmonitor bp Dementia 49705458 F02.80 aricept 10 mg qdbaseline dementiamo nitor behaviorsp sych eval prnguardia nship in place Seizure disorder 0927262 02 G40.89 keppra 250 mg [place] n 200 mg qam, 100 mg qhsmonitor for activitymo nitor med level Hypothyroidism 62492861 E03.8 synthroid 25 mcg qdmonitor tsh [id number] [address]ELICE [address]ESAR [address] [address] 05/19/2019 12:47:45 05/29/2019 12:03:02 Essential hypertension 05752053 I10 norvasc 2.5 mg qdmonitor b/p and labs Hypothyroidism 81465383 E03.8 levothyrox ine 25 mcg qdmonitor TSH Chronic low back pain 27 2725765 M54.5 tylenol as neededmoni tor for pain Mixed hyperlipidemia 267 900857 E78.2 pravastati n 80 mg qdmonitor labs Seizure disorder 8534105 02 G40.802 keppra 250 mg bidphenyto in 200 mg q am and 100 mg q pmmonitor for seizures Dementia 77444510 F02.80 donepezil 10 mg qdexpect declinesup portive careguardi an in place [id number] Lynn Landry MD [facility] [address] [address] 07/09/2019 12:12:36 07/11/2019 14:11:00 Chronic low back pain 475492418 M54.5 APAP 650 mg q4h prnwill monitor Dementia 16655672 F02.80 donepezil 10 mg dailyexpec t declinewil l monitor and support as needed Essential hypertension 29274056 I10 amlodipine 2.5 mg dailywill monitor Hypothyroidism 56990783 E03.8 levothyrox ine 25 mcg dailywill monitor Mixed hyperlipidemia 267 757349 E78.2 pravastati n 80 mg dailywill monitor Seizure disorder 1752233 02 G40.009 levetirace whitfield 250 mg bidphenyto in ER 100 mg in evening and 200 mg in morningwil l monitor [id number] FELICE CESAR [address] [address] 09/03/2019 10:07:34 09/09/2019 14:46:10 Dementia 88631441 F02.80 donepezil 10 mg qdexpect declinesup portive careguardi an in place Hypothyroidism 25732383 E03.8 levothyrox ine 25 mcg qdmonitor TSH Mixed hyperlipidemia 267 936088 E78.2 pravastati n 80 mg qdmonitor labs Seizure disorder 9157225 02 G40.802 keppra 250 mg bidphenyto in 200 mg q am and 100 mg q pmmonitor for seizures Essential hypertension 22138156 I10 norvasc 2.5 mg qdmonitor b/p and labs [id number] Kamaljit Alonzo MD [address] [address] 11/08/2019 17:05:17 11/11/2019 08:48:24 Syndrome of inappropriate vasopressin secretion 82193472 E22.2 not on fluid restrictio nmonitor Nacurrentl y borderline low Essential hypertension 34584258 I10 norvasc 2.5 mg qdmonitor bp Dementia 78403800 F02.80 aricept 10 mg qdbaseline dementiagu ardianship in place Seizure disorder 6188727 02 G40.89 keppra 250 mg [place] n 200 mg qam, 100 mg qhsmonitor for activity [id number] TO MOYER NP [facility] [address] 12/30/2019 08:05:45 01/01/2020 11:35:19 Seizure disorder 407653407 G40.909 Keppra 250 mg bid Dilantin 200 mg qam, 100 mg qhs monitor for seizure activity Essential hypertension 88712540 I10 Norvasc 2.5 mg qd monitor bp Dementia 64424951 F03.90 Aricept 10 mg qd baseline dementia,m onitor for any changes in mood or behaviors guardiansh ip in place NEG psych prn [id number] Lynn Landry MD [facility] [address] [address] 02/27/2020 08:58:46 03/02/2020 09:27:03 Chronic low back pain 781727175 M54.5 APAP 650 mg q4h prnwill monitor Dementia 61318759 F02.80 donepezil 10 mg dailyexpec t declinewil l monitor and support as needed Essential hypertension 38630677 I10 amlodipine 2.5 mg dailywill monitor Hypothyroidism 45656360 E03.8 levothyrox ine 25 mcg dailywill monitor Seizure disorder 8653039 02 G40.009 levetirace whit[place] 250 mg bidphenyto in ER 100 mg in evening and 200 mg in morningwil l monitor Mixed hyperlipidemia 267 009046 E78.2 pravastati n 80 mg dailywill monitor [id number] [facility] [address] [address] 04/21/2020 13:20:38 04/27/2020 09:08:36 Seizure disorder 397126334 G40.802 keppra 250 mg bidphenyto in 200 mg q am and 100 mg q pmmonitor for seizures Hypothyroidism 07446159 E03.8 levothyrox ine 25 mcg qdmonitor TSH Essential hypertension 60545139 I10 norvasc 2.5 mg qdmonitor b/p and labs Chronic low back pain 27 2014408 M54.5 tylenol as neededmoni tor for pain [id number] FELICE CESAR [address] [address] 05/26/2020 10:43:52 05/28/2020 14:03:34 Dementia 65666942 F02.80 donepezil 10 mg qdexpect declinesup portive careguardi an in place Essential hypertension 81886899 I10 norvasc 2.5 mg qdmonitor b/p and labs Hypothyroidism 47681111 E03.8 levothyrox ine 25 mcg qdmonitor TSH Seizure disorder 1067122 02 G40.802 keppra 250 mg bidphenyto in 200 mg q am and 100 mg q pmmonitor for seizures Syndrome o f inappropriate vasopressin secretion 36669275 E22.2 noted in historymon itor Psoriasis 8634891 L40.8 monitor skin Mixed hyperlipidemia 267 988476 E78.2 pravastati n 80 mg qdmonitor labs Chronic low back pain 27 7110807 M54.5 tylenol as neededmoni tor for pain Traumatic brain injury 395445866 S06.890S noted in historymon itor [id number] [facility] [address] [place] [address] 06/23/2020 07:14:41 06/25/2020 10:58:24 Chronic low back pain 872430994 M54.5 APAP 650 mg q4h prnwill monitor Dementia 44941491 F02.80 donepezil 10 mg dailyexpec t declinewil l monitor and support as needed Essential hypertension 20769494 I10 amlodipine 2.5 mg dailywill monitor Hypothyroidism 09242250 E03.8 levothyrox ine 25 mcg dailywill monitor Mixed hyperlipidemia 267 812054 E78.2 pravastati n 80 mg dailywill monitor Seizure disorder 9463990 02 G40.009 levetirace whit[place] 250 mg bidphenyto in ER 100 mg in evening and 200 mg in morningwil l monitor [id number] [facility] [address] [place] [address] 08/19/2020 08:48:39 08/24/2020 11:43:34 Dementia 70677348 F02.80 donepezil 10 mg qdexpect declinesup portive careguardi an in place Hypothyroidism 40118522 E03.8 levothyrox ine 25 mcg qdmonitor TSH Mixed hyperlipidemia 267 062773 E78.2 pravastati n 80 mg qdmonitor labs Seizure disorder 3092033 02 G40.802 keppra 250 mg bidphenyto in 200 mg q am and 100 mg q pmmonitor for seizures [id number] Lynn Landry MD [facility] [address] 10/13/2020 07:33:21 10/15/2020 12:59:28 Seizure disorder 747238646 G40.009 levetirace whit[place] 250 mg bidphenyto in ER 100 mg in evening and 200 mg in morningwil l monitor Mixed hyperlipidemia 267 803087 E78.2 pravastati n 80 mg dailywill monitor Hypothyroidism 07677934 E03.8 levothyrox ine 25 mcg dailywill monitor Essential hypertension 91428351 I10 amlodipine 2.5 mg dailywill monitor Dementia 96132139 F02.80 donepezil 10 mg dailyexpec t declinewil l monitor and support as needed Chronic low back pain 27 4119290 M54.5 APAP 650 mg q4h prnwill monitor Mixed anxi ety and depressive disorder 439990115 F41.8 sertraline 25 mg dailywil monitor [id number] FELICE CESAR [facility] [address] 12/06/2020 13:10:00 12/08/2020 12:19:42 Essential hypertension 70313647 I10 norvasc 2.5 mg qdmonitor b/p and labs Hypothyroidism 34547674 E03.8 levothyrox ine 25 mcg qdmonitor TSH Seizure disorder 5479072 02 G40.802 keppra 250 mg bidphenyto in 200 mg q am and 100 mg q pmmonitor for seizures Dementia 54793900 F02.80 donepezil 10 mg qdexpect declinesup portive careguardi an in place [id number] FELICE CESAR [address] [address] 12/17/2020 14:40:34 12/21/2020 08:23:13 Pruritic rash 93560471 L28.2 will order nystatin powder to under left arm pit nystatin powder bid prn to rash monitor for resolution [id number] FELICE CESAR [address] [address] 01/17/2021 11:47:21 01/20/2021 09:54:31 Dementia 15335325 F02.80 donepezil 10 mg qd expect decline supportive care guardian in place noted acute confusion mostly at night will send another urine although suspect it will be negative will have psych reassess zoloft to see if this could cause increased confusion although not new suspect his dementia is progressin g [id number] Lynn Landry MD [facility] [address] 01/28/2021 07:23:02 02/04/2021 11:15:31 Chronic low back pain 930418751 M54.5 APAP 650 mg q4h prnwill monitor Dementia 69258580 F02.80 donepezil 10 mg dailyexpec t declinewil l monitor and support as needed Essential hypertension 42418502 I10 amlodipine 2.5 mg dailywill monitor Hypothyroidism 95886119 E03.8 levothyrox ine 25 mcg dailywill monitor Mixed hyperlipidemia 267 237469 E78.2 pravastati n 80 mg dailywill monitor Seizure disorder 5686540 02 G40.009 levetirace [place] 250 mg bidphenyto in ER 100 mg in evening and 200 mg in morningwil l monitor Mixed anxi ety and depressive disorder 615035540 F41.8 sertraline 25 mg dailywil monitor [id number] FELICE CESAR [address] [address] 02/21/2021 08:16:36 02/23/2021 09:49:58 Intertrochanteric fracture 081619181 S72.141D PT/ OT eval and treats/p surgical repair by Dr. Johnson irin 325 mg BID for VTE prophylaxi s - follow with ortho for D/C dateTyleno l 650 mg q 4 h PRNOxycodo ne 5 mg q 6 h PRNMonitor bowel function while on oxycodone - bowel regimen PRNFollow- up with Jeffrey MOREL on March 02 at 10:45 amMonitor surgical incisionsK eep dressings clean, dry, and intact - no showering or tub bathsNursi ng to contact ortho regarding dressing changes prior to F/U appt [place] 984911160 R29.6 monitor for safety Traumatic brain injury 594073511 S06.890S noted in historymon itor Seizure disorder 7189711 02 G40.802 keppra 250 mg BIDphenyto in 200 mg q am and 100 mg q pmmonitor for seizures Dementia 17277105 F02.80 donepezil 10 mg q HSsertrali ne 25 mg qd Folic acid 1 mg qd expect decline supportive care guardian in place Essential hypertension 75539187 I10 norvasc 2.5 mg qdmonitor b/p and labs Hypothyroidism 49322367 E03.8 levothyrox ine 25 mcg qdmonitor TSH Mixed hyperlipidemia 267 817259 E78.2 pravastati n 80 mg q HSmonitor labs Syndrome o f inappropriate vasopressin secretion 92470464 E22.2 noted in historymon itor Psoriasis 8868089 L40.8 monitor skin Chronic low back pain 27 3475454 M54.5 tylenol 650 mg q 4 hrs prnmonitor for pain Depressive disorder 3548 9007 F32.89 zoloft 25 mg qdmonitor moodpsych eval and treat prn [id number] TO MOYER NP [address] [address] 02/28/2021 08:35:03 03/02/2021 11:22:31 Dementia 16072569 F03.90 Aricept 10 mg qd baseline dementia,m onitor for any changes in mood or behaviors guardiansh ip in place NEG psych prn Intertroch anteric fracture 405866488 S72.141D PT/ OT eval and treats/p surgical repair by Dr. Johnson irin 325 mg BID for VTE prophylaxi s - follow with ortho for D/C dateTyleno l 650 mg q 4 h PRNOxycodo ne 5 mg q 6 h PRNMonitor bowel function while on oxycodone - bowel regimen PRNFollow- up with Jeffrey MOREL on March 02 at 10:45 amMonitor surgical incisionsK eep dressings clean, dry, and intact - no showering or tub bathsNursi ng to contact ortho regarding dressing changes prior to F/U roxanne [id number] TO MOYER NP [facility] [address] [address] 03/02/2021 08:18:12 03/04/2021 14:40:28 Intertrochanteric fracture 281228321 S72.141D PT/ OT eval and treats/p surgical repair by Dr. Johnson irin 325 mg BID for VTE prophylaxi s - follow with ortho for D/C dateTyleno l 650 mg q 4 h PRNOxycodo ne 5 mg q 6 h PRNMonitor bowel function while on oxycodone - bowel regimen PRNFollow- up with Warner-Radha MOREL on March 02 at 10:45 amMonitor surgical incisionsK eep dressings clean, dry, and intact - no showering or tub bathsNursi ng to contact ortho regarding dressing changes prior to F/U roxanne Seizure disorder 3545836 02 G40.909 Keppra 250 mg bid Dilantin 200 mg qam, 100 mg qhs monitor for seizure activity [id number] FELICE CESAR [facility] [address] [address] 03/11/2021 08:15:47 03/15/2021 14:45:36 Intertrochanteric fracture 123359479 S72.141D PT/ OTs/p surgical repair by Dr. Alejo 325 mg BID for VTE prophylaxi stylenol 650 mg tid and q 4 h PRNoxycodo ne 5 mg q 6 h PRN and 5 mg q ammonitor Unintentio nal weight loss 762051848 R63.4 patient was 02/25 141.4 and on 03/04 120.5notab le loss visuallyen sure qdwill encourage intakemoni tor weight [id number] FELICE CESAR [facility] [address] [address] 1 03/18/2021 10:34:10 03/20/2021 20:45:12 Unintentional weight loss [id number] R63.4 down 20.9 lbs in less than a monthensur e qdwill encourage intakemoni tor weightdiet ician will update guardian of note general overall condition is poor [id number] FELICE CESAR [facility] [address] [address] 1 03/21/2021 11:33:14 03/24/2021 16:21:09 Unintentional weight loss 699212585 R63.4 current weight is 111-now down 21.5 lbs ensure qd will continue to encourage intake monitor weight team updated guardian today during care plan spent greater than 16 minutes discussing diet and potential complicati ons of not eating with pt Dementia [id number] F02.80 donepezil 10 mg q hssertrali ne 25 mg qd folic acid 1 mg qd expect decline supportive care guardian in place [id number] FELICE CESAR [facility] [address] [address] 1 03/28/2021 10:27:42 03/30/2021 10:27:40 Intertrochanteric fracture 983763156 S72.141D PT/ OT s/p surgical repair by Dr. Ybarra ASA 325 mg bid-will have them check on how long ortho wants this for tylenol 650 mg tid and q 4 h prn oxycodone 5 mg q 6 h prn and 5 mg q am monitor will have them make a follow up appt if one not in place Dementia 09740753 F02.80 donepezil 10 mg q hsfolic acid 1 mg qd expect decline supportive care guardian in place Falls 404752183 R29.6 monitor for safety Depressive disorder 3548 9007 F32.89 zoloft 25 mg qd-increas ed to 50 mg qd remeron 15 mg q hs starteddis cussed risk vs benefit with guardian monitor mood psych eval and treat prn Mixed hyperlipidemia 267 484200 E78.2 pravastati n 80 mg q hs monitor labs [id number] MARIA E ROBERSON NP [facility] [address] [address] 1 05/17/2021 10:09:55 05/19/2021 03:48:10 Falls [id number] R29.6 Unwitnesse d fall last night 05/16/21 - no injuries.P T OT eval and tx. prn.Contin ue to monitor VS, neuros for change/dec ompensatio n. [id number] Yessy Krause MD [facility] [address] [address] 1 05/17/2021 20:04:11 05/26/2021 11:12:20 Intertrochanteric fracture 510433543 S72.141D Has plateaued on therapy and d/c'd from acute rehab.Cont inue ASA 325 mg BID for DVT prophylaxi s.Continue APAP 650 mg TID scheduled and q 4 hrs prn, and oxycodone 5 mg q 6 hrs prn.Monito r for safety.Enc ourage ambulation with staff. Dementia 56509564 F02.80 Continues at severe baselineCo ntinue donepezil 10 mg qhsContinu e supportive care, expect decline.Wilks s legal guardian.M onitor mood and behaviors. Psych consult prn. Falls 148035629 R29.6 Continue fall precaution s.Monitor for safety. Depressive disorder 3548 9007 F32.89 Continue sertraline 75 mg qd and mirtazapin e 15 mg qhs.Monito r moodPsych involved prn Mixed hyperlipidemia 267 993450 E78.2 Labs good in ont inue pravastati n 80 mg qd.Monitor labs yearly. Vitamin deficiency 12977 002 D52.8 Continue folic acid 1 mg qd.Monitor levels Chronic low back pain 27 1951827 M54.5 APAP 650 mg q4h prnwill monitor Essential hypertension 27939619 I10 Good control on amlodipine 2.5 mg qd.Monitor BP and labs. Hypothyroidism 45154207 E03.8 TSH WNL in 01/2021.Con tinue levothyrox ine 25 mcg qd.Monitor TSH yearly. Seizure disorder 9529515 02 G40.009 No recent seizure activity.C ontinue levetirace whitfield 250 mg BID and phenytoin ER 200 mg qAM and 100 mg qPM.Monito r levels and for seizure activity. [id number] MARIA E ROBERSON NP [facility] [address] [address] 1 06/07/2021 11:06:46 06/09/2021 13:34:17 Dementia 58005881 F02.80 Continues at severe baselineCo ntinue donepezil 10 mg qhsContinu e supportive care, expect decline.Efe guzmán legal guardian.M onitor mood and behaviors. Psych consult prn. Intertroch anteric fracture 234298849 S72.141D Healed.D/c oxy due to non useD/C ASA bid. Falls 262456517 R29.6 Continue fall precaution s.Monitor for safety. Depressive disorder 3548 9007 F32.89 Continue sertraline 75 mg qd and mirtazapin e 15 mg qhs.Monito r moodPsych involved prn Mixed hyperlipidemia 267 084210 E78.2 Labs good in ont inue pravastati n 80 mg qd.Monitor labs yearly. Vitamin deficiency 81454 002 D52.8 Continue folic acid 1 mg qd.Monitor levels Chronic low back pain 27 4858803 M54.59 APAP 650 mg q4h prnwill monitor Essential hypertension 73113723 I10 Good control on amlodipine 2.5 mg qd.Monitor BP and labs. Hypothyroidism 40826176 E03.8 TSH WNL in 01/2021.Con tinue levothyrox ine 25 mcg qd.Monitor TSH yearly. Seizure disorder 9675709 02 G40.009 No recent seizure activity.C ontinue levetirace whitfield 250 mg BID and phenytoin ER 200 mg qAM and 100 mg qPM.Monito r levels and for seizure activity. Unintentio nal weight loss 443354477 R63.4 Following weights - on the increase. [id number] ADAM RUDOLPH [address] [address] 1 07/13/2021 11:01:56 07/15/2021 10:42:49 Dementia 25670744 F02.80 Continues at severe baselineCo ntinue donepezil 10 mg qhsContinu e supportive care, expect decline.Efe guzmán legal guardian.M onitor mood and behaviors. Psych consult prn. Falls 985447585 R29.6 Continue fall precaution s.Monitor for safety. Depressive disorder 3548 7 F32.89 Continue sertraline 75 mg qd and mirtazapin e 15 mg qhs.Monito r moodPsych involved prn Mixed hyperlipidemia 267 171030 E78.2 Labs good in ont inue pravastati n 80 mg qd.Monitor labs yearly consider DC if patient with <1 year to live Vitamin deficiency 37317 002 D52.8 Continue folic acid 1 mg qd.Monitor levelsCBC with normal MCV, consider checking folate levels likely normal and should DC Chronic low back pain 27 2385884 M54.59 APAP 650 mg q4h prnwill monitor Essential hypertension 68826237 I10 Good control on amlodipine 2.5 mg qd.Monitor BP and labs. Hypothyroidism 15727659 E03.8 TSH WNL in 01/2021.Con tinue levothyrox ine 25 mcg qd.Monitor TSH yearly. Seizure disorder 1003034 02 G40.009 No recent seizure activity.C ontinue levetirace whitfield 250 mg BID and phenytoin ER 200 mg qAM and 100 mg qPM.Monito r levels every 6 months and for seizure activity6. 0 keppra on . 0 dilantin on 06/09 [id number] Lynn Landry MD [address] [address] 1 09/07/2021 06:43:49 09/09/2021 12:00:43 Dementia 34632727 F02.80 donepezil 10 mg dailyexpec t declinewil l monitor and support as needed Chronic low back pain 27 2352610 M54.59 APAP 650 mg q8h and q4h prnwill monitor Essential hypertension 98446365 I10 amlodipine 2.5 mg dailywill monitor Hypothyroidism 46040439 E03.8 levothyrox ine 25 mcg dailywill monitor Mixed hyperlipidemia 267 682095 E78.2 pravastati n 80 mg dailywill monitor Seizure disorder 5995275 02 G40.009 levetirace whitfield 250 mg bidphenyto in ER 100 mg in evening and 200 mg in morningwil l monitor Mixed anxi ety and depressive disorder 707371033 F41.8 mirtazapin e 15 mg dailysertr farheen 50 mg dailywil monitor [id number] FELICE CESAR [address] [address] 1 10/28/2021 10:32:11 11/01/2021 14:53:35 Dementia 04516239 F02.80 donepezil 10 mg q hsfolic acid 1 mg qd expect decline supportive care guardian in place Seizure disorder 3417976 02 G40.009 keppra 250 mg bid phenytoin 200 mg q am and 100 mg q pm monitor for seizures Traumatic brain injury 931213530 S06.890S noted in history has a guardian monitor Hypothyroidism 08694412 E03.8 levothyrox ine 25 mcg qd monitor TSH and free T4 Depressive disorder 3548 9007 F32.89 zoloft 75 mg qd remeron 15 mg q hs monitor mood psych eval and treat prn Essential hypertension 01460889 I10 norvasc 2.5 mg qd monitor b/p and labs [place] 215005305 R29.6 PT/OT eval and treat prn monitor for safety Mixed hyperlipidemia 267 033138 E78.2 pravastati n 80 mg q hs monitor labs [id number] [facility] [address] 12/21/2021 06:31:09 12/26/2021 12:13:41 Dementia 65642715 F02.80 donepezil 10 mg dailyexpec t declinewil l monitor and support as needed Essential hypertension 19806733 I10 amlodipine 2.5 mg dailywill monitor Hypothyroidism 73641776 E03.8 levothyrox ine 25 mcg dailywill monitor Mixed hyperlipidemia 267 163659 E78.2 pravastati n 80 mg dailywill monitor Seizure disorder 1044816 02 G40.009 levetirace whitfield 250 mg bidphenyto in ER 100 mg in evening and 200 mg in morningwil l monitor Mixed anxi ety and depressive disorder 933111632 F41.8 mirtazapin e 15 mg dailysertr farheen 75 mg dailywil monitor Osteoarthritis 045215687 M15.0 APAP 650 mg tid and q4h prnwill monitor [id number] MARIA E ROBERSON NP [address] [address] 1 02/14/2022 09:29:36 02/16/2022 14:54:54 Dementia 16709602 F02.80 continue donepezil 10 mg dailyexpec t declineFol lowed by psychMonit or mood, behaviors. Scored poorly on SLUMSHas guardianwi ll monitor and support as needed Essential hypertension 46376954 I10 continue amlodipine 2.5 mg dailymonit or VS, adjust meds prn Hypothyroidism 16186058 E03.8 continue levothyrox ine 25 mcg dailyTSH 12/16 WNR. Mixed hyperlipidemia 267 456019 E78.2 continue pravastati n 80 mg dailyCheck CMP, lipid panel x 1 Seizure disorder 0020311 02 G40.009 Continue:l evetiracet am 250 mg bidphenyto in ER 100 mg in evening and 200 mg in morningsz. activity well controlled at present Mixed anxi ety and depressive disorder 978577724 F41.8 Continue:m irtazapine 15 mg dailysertr farheen 75 mg dailypsych also follows - appreciate input.pavithra lennon mood, behaviors. Osteoarthritis 015952427 M15.0 continue APAP 650 mg tid and q4h prnmonitor and adjust prn [id number] [facility] [address] 02/20/2022 15:00:00 02/22/2022 14:17:15 Mixed hyperlipidemia 415117965 E78.2 pravastati n 80 mg q hs refuses to give up hot dogs daily educated and will continue with his food choices monitor labs [id number] [facility] [address] 03/31/2022 09:30:03 04/04/2022 14:52:15 Dementia 36240155 F02.80 donepezil 10 mg dailyexpec t declinewil l monitor and support as needed Essential hypertension 46925510 I10 amlodipine 2.5 mg dailywill monitor Hypothyroidism 31599928 E03.8 levothyrox ine 25 mcg dailywill monitor Mixed hyperlipidemia 267 131514 E78.2 pravastati n 80 mg dailywill monitor Seizure disorder 1804427 02 G40.009 levetirace whitfield 250 mg bidphenyto in ER 100 mg in evening and 200 mg in morningwil l monitor Osteoarthritis 470262775 M15.0 APAP 650 mg tid and bid prnwill monitor Mixed anxi ety and depressive disorder 953100153 F41.8 mirtazapin e 15 mg dailysertr farheen 75 mg dailywil monitor [id number] FELICE CESAR [facility] [address] [address] 1 05/15/2022 09:37:39 05/19/2022 10:31:56 COVID-19 964944617 U07.1 covid positive on 05/14/22 cough and weakness denies any symptoms today crackles in left lower lobe will order chest x-ray to rule out pneumonia monitor for need to treat [id number] Kamaljit Alonzo MD [facility] [address] [address] 1 05/17/2022 14:12:52 05/19/2022 11:02:20 COVID-19 698734046 U07.1 tested positive on 05/14negati ve cxr on 05/16monito r respirator y function and PO intakecont inue supportive care [id number] FELICE CESAR [address] [address] 1 05/19/2022 11:09:58 05/29/2022 14:36:44 Localized eruption of skin 779225849 R21 scratches on upper back from pt scratching will order hydrocorti sone cream bid x 7 days monitor for resolution COVID-19 945718378 U07.1 covid positive on 05/14/22 denies any symptoms today monitor for need to treat [id number] FELICE CESAR [address] [address] 1 05/22/2022 11:24:26 05/29/2022 14:58:30 Dementia 86312047 F02.80 donepezil 10 mg q hsfolic acid 1 mg qd expect decline supportive care guardian in place Essential hypertension 70058481 I10 norvasc 2.5 mg qd monitor b/p and labs Hypothyroidism 77496553 E03.8 levothyrox ine 25 mcg qd monitor TSH and free T4 Seizure disorder 1763908 02 G40.009 keppra 250 mg bid phenytoin 200 mg q am and 100 mg q pm monitor for seizures COVID-19 415942934 U07.1 covid positive on 05/14/22 currently asymptomat ic monitor for need to treat [id number] MARIA E ROBERSON NP [facility] [address] [address] 1 05/25/2022 14:32:15 05/29/2022 15:18:20 COVID-19 204027689 U07.1 covid positive on 05/14/22 fortunatel y sx. mild, doing well overall goal is back to room on Sunday Continue to monitor closely [id number] FELICE CESAR [facility] [address] [address] 1 06/09/2022 11:39:13 06/12/2022 15:06:54 Dementia 31793181 F02.80 donepezil 10 mg q hsfolic acid 1 mg qd expect decline supportive care guardian in place Traumatic brain injury 718510019 S06.890S noted in history has a guardian monitor Seizure disorder 3472296 02 G40.009 keppra 250 mg bid phenytoin 200 mg q am and 100 mg q pm monitor for seizures Hypothyroidism 03138442 E03.8 levothyrox ine 25 mcg qd monitor TSH and free T4 Essential hypertension 60538786 I10 norvasc 2.5 mg qd monitor b/p and labs Mixed hyperlipidemia 267 705555 E78.2 pravastati n 80 mg q hs monitor labs [place] 393707988 R29.6 PT/OT eval and treat prn monitor for safety Depressive disorder 3548 9007 F32.89 zoloft 75 mg qd remeron 15 mg q hs monitor mood psych eval and treat prn Chronic low back pain 27 9078266 M54.59 tylenol 650 mg tid and 650 mg bid prn monitor pain Unintentio nal weight loss 116205189 R63.4 current weight is 141.2 monitor weight he is doing better than earlier this year but still less than norm independent marketing consultant consult prn [id number] Lynn Landry MD [facility] [address] [address] 1 07/17/2022 06:46:08 07/28/2022 16:03:33 Dementia 12804532 F02.80 donepezil 10 mg dailyexpec t declinewil l monitor and support as needed COVID-19 231974393 U07.1 tested positive 05/14/22had mild coursereco veredwill continue to monitor Essential hypertension 85060492 I10 amlodipine 2.5 mg dailywill monitor Hypothyroidism 66707749 E03.8 levothyrox ine 25 mcg dailywill monitor Seizure disorder 2294870 02 G40.009 levetirace whitfield 250 mg bidphenyto in ER 100 mg in evening and 200 mg in morningwil l monitor Mixed anxi ety and depressive disorder 632075457 F41.8 mirtazapin e 15 mg dailysertr farheen 75 mg dailywil monitor Osteoarthritis 274366107 M15.0 APAP 650 mg tid and bid prnwill monitor Mixed hyperlipidemia 267 260214 E78.2 pravastati n 80 mg dailywill monitor [id number] JOHN WELCH PA-C [facility] [address] [address] 1 07/27/2022 15:08:03 08/01/2022 10:57:33 Bacterial pneumonia 52612298 J15.9 Augmentin 875/125 mg po bid x 5 days-benef its of abx outweigh risks of non-treatm ent in this patientPro biotic bid x 8 daysFollow clinically Chronic rhinitis 1347681 6 J31.0 Flonase Sensimist 1 spray per nostril bid-may sub reg Flonase if unavailabl eFollow clinically [id number] JOHN WELCH PA-C [facility] [address] [address] 1 07/28/2022 14:59:46 08/01/2022 11:01:18 Respiratory syncytial virus infection 48901369 B97.4 Supportive carePrecau tions per facility protocolf/ u prn Bacterial pneumonia 5308 4003 J15.9 Continue AugmentinF ollow clinically [id number] JOHN WELCH PA-C [facility] [address] [address] 1 07/31/2022 12:36:03 08/02/2022 13:29:36 Bacterial pneumonia 88902493 J15.9 Finished abxClinica lly resolvedf/ u prn Respirator y syncytial virus infection 30199539 B97.4 Supportive carePrecau tions per facility protocolf/ u prn [id number] JOHN WELCH PA-C [facility] [address] [address] 1 09/15/2022 11:40:57 10/09/2022 16:15:13 Weight loss 50260681 R63.4 Consider decrease Aricept from 10 to 5 mg since just as efficaciou s but with less GI side effects-nataliya ke sure taking with dinnerCons ider updating TSHMonitor weightsRD also following Seizure disorder 2350252 02 G40.909 None reportedNo clinical indication for routine monitoring of Keppra levelsCons ider consolidat ing Dilantin to once daily since no difference in efficacy-m onitor Dilantin levelsf/u prn Chronic rhinitis 4229535 6 J31.0 significan tly improved on Flonase Sensimist- consider trial decrease from bid to once daily Vascular d ementia with behavioral disturbance 0989990661 10246 F01.B18 Refused SLUMS Recurrent falls 19573095 2 R29.6 PT/OT prn [id number] JOHN WELCH PA-C [facility] [address] [address] 1 11/09/2022 17:37:47 11/28/2022 12:45:42 Altered mental status 232725917 R41.82 check U/A and basic labs, Dilantin level, and Keppra level\-f/u when results are available [id number] JOHN WELCH PA-C [facility] [address] [address] 1 11/11/2022 19:59:33 11/28/2022 13:07:43 Altered mental status 553556442 R41.82 improved Keppra can cause agitation Seizure disorder 3869377 02 G40.909 subtherape utic Dilantin level-sinc e no seizures, will not make any adjustment s at this time but consider d/c and use monotherap y with Keppra [id number] Lynn Landry MD [facility] [address] [address] 1 11/15/2022 09:38:53 11/20/2022 16:12:07 Dementia 50625492 F02.80 donepezil 10 mg dailyexpec t declinewil l monitor and support as needed Seizure disorder 7370791 02 G40.909 levetirace whitfield 250 mg bidphenyto in ER 100 mg in evening and 200 mg in morningwil l monitor Mixed anxi ety and depressive disorder 926381850 F41.8 mirtazapin e 15 mg dailysertr farheen 75 mg dailytrazo done 25 mg in afternoonw il monitor Hypothyroidism 08266692 E03.8 levothyrox ine 25 mcg dailywill monitor Chronic pain 76583569 G8 9.29 APAP 650 mg tid and q12h prnwill monitor Mixed hyperlipidemia 267 396229 E78.2 pravastati n 80 mg dailywill monitor [id number] JOHN WELCH PA-C [facility] [address] [address] 1 11/28/2022 13:14:26 11/30/2022 13:04:27 Adult failure to thrive syndrome 186025682 R62.7 d/c AriceptCon first coat sander increasing RemeronBas ic labs tomorrowPt has a guardiansh ip in place-does not authorize completion of MOLST-guar kavya reportedly also in very poor healthIf labs benign, may need to look at expansion of guardiansh ipAlso seems he may need a new guardianAw ait labs and follow clinically [id number] MARIA E ROBERSON NP [facility] [address] [address] 1 12/18/2022 14:37:40 12/20/2022 11:26:38 Adult failure to thrive syndrome 768963565 R62.7 Aricept stoppedSlo wly losing weightRepe at labs in am - CBC, CMP, Dil. level, TSHRefer to psych for med reviewEnco urage fluidsDiet ician followingM onitor Pt has a guardiansh ip in place-does not authorize completion of MOLST-guar kavya reportedly also in very poor healthIf labs benign, may need to look at expansion of guardiansh ipAlso seems he may need a new guardian Mixed hyperlipidemia 267 218365 E78.2 continue pravastati n 80 mg dailyLipid panel with elevated levelsAdd zetia 10 mg dailyRepea t LFTs, [facility] [id number] MARIA E ROBERSON NP [facility] [address] 01/03/2023 09:41:27 01/08/2023 12:18:48 Candidiasis of skin 39419837 B37.2 apply house antifungal cream BID for 14 dayscan also add barrier cream after applicatio n of antifungal cream for skin protection keep on sides when in bed to allow for air flow to reduce moisture and [facility] rash or skin breakdownr efer to wound GAS PLUMBER for eval and tx.High risk for breakdown due to general decline in status. [id number] Lynn Landry MD [facility] [address] 01/10/2023 06:14:58 01/14/2023 08:34:14 Dementia 04916523 F02.80 expect declinewil l monitor and support as needed Essential hypertension 67708240 I10 amlodipine 2.5 mg dailywill monitor Seizure disorder 2343637 02 G40.909 levetirace whitfield 250 mg bidphenyto in ER 100 mg in afternoon and 200 mg in morningwil l monitor Mixed anxi ety and depressive disorder 589785409 F41.8 mirtazapin e 15 mg daily - will increase to 22.5 mg dailysertr farheen 75 mg dailytrazo done 25 mg in afternoonw il monitor Hypothyroidism 41277263 E03.8 levothyrox ine 25 mcg dailywill monitor Mixed hyperlipidemia 267 340883 E78.2 pravastati n 80 mg dailyezeti mibe 10 mg dailywill monitor Chronic pain 82359953 G8 9.29 APAP 650 mg tid and q12h prnwill monitor [id number] Yessy Krause MD [facility] [address] 01/26/2023 13:04:53 01/30/2023 09:36:15 Abdominal pain 86461526 R10.84 Now resolved.P ossibly GERD, will start famotidine 20 mg qd and monitor.En courage po intake.Shaheed l check U/A and C&S, and check labs on 6/5.If continues to not eat will get labs sooner or consider ED eval as pt is full code. [id number] FELICE LAMBERT [facility] [address] [address] 1 02/12/2023 16:11:31 02/14/2023 08:09:15 Falls 846295943 R29.6 unwitnesse d fall 02/11 no injurieshe does not take any anticoags or asa.hx of seizuresla st dilantin level 6.3 on 12/19 which seems to be baseline,h e also take keppra, last level 11.9 0n 11/11. will recheck on 02/13 [id number] Farzana Messer NP [facility] [address] [address] 03/23/2023 09:35:42 03/27/2023 14:57:16 Falls 514918695 R29.6 unwitnesse d fall 02/11 no injurieshe does not take any anticoags or asa.hx of seizuresla st dilantin level 6.3 on 12/19 which seems to be baseline,h e also take keppra, last level 11.9 0n 11/11. will recheck on 02/13 Abdominal pain 10332129 R10.84 Now resolved.P ossibly GERD, will start famotidine 20 mg qd and monitor.En courage po intake.Shaheed l check U/A and C&S, and check labs on 01/29.If continues to not eat will get labs sooner or consider ED eval as pt is full code.alk phos on 03/19/23 129 boderline, monitor Dementia 62822228 F02.80 expect declinewil l monitor and support as needed Essential hypertension 29528824 I10 amlodipine 2.5 mg dailywill monitor Seizure disorder 9472491 02 G40.909 no s/s of seizure today or neurologic al compromise and unclear of staff concern while in elevator todaycontl evetiracet am 250 mg bidphenyto in ER 100 mg in afternoon and 200 mg in morningwil l monitorrev iewed phenytoin and keppra labs on 02/15/23 wnl Mixed anxi ety and depressive disorder 304430832 F41.8 mirtazapin e 15 mg dailysertr farheen 75 mg dailytrazo done 25 mg in afternoonw il monitor Hypothyroidism 34527970 E03.8 levothyrox ine 25 mcg dailywill monitor Mixed hyperlipidemia 267 862652 E78.2 pravastati n 80 mg dailyezeti mibe 10 mg dailywill monitorlab s reviewed from 03/19/23 slightly high chol and ldl will cont above dosing Chronic pain 95881984 G8 9.29 APAP 650 mg tid and q12h prnwill monitor Unintentio nal weight loss 799396212 R63.4 pt with weight loss since july with overall declinewei ght up this monthcurre ntly on ensure tidalready on mirtazapin e 15 mg po qhsmonitor [id number] Yessy Krause MD [address] [address] 05/11/2023 16:03:17 05/22/2023 09:25:29 Dementia 12606718 F02.B0 Continues at baselineCo ntinue trazadone 25 mg q afternoon, sertraline 75 mg qd and mirtazapin e 15 mg qhs.Contin ue supportive care, expect decline.HC P invokedMon itor mood and behaviors. Psych follows. Seizure disorder 2000579 02 G40.802 No recent seizure activity.C ontinue levetirace whitfield 250 mg BID and phenytoin ER 200 mg qAM and 100 mg qafternnoo n.Monitor levels and seizure activity Essential hypertension 88442128 I10 BP in good control.Co ntinue amlodipine 2.5 mg qdMonitor BP and labs. Mixed anxi ety and depressive disorder 375200160 F41.8 F32.89 As above. Hypothyroidism 00868717 E03.8 TSH WNL in 11/2022.Con tinue levothyrox ine 25 mcg qdMonitor TSH yearly. Mixed hyperlipidemia 267 685453 E78.2 LDL was 132 in 02/2023.Not worth pushing for tight control in this demented man.Contin ue pravastati n 80 mg qd and ezetimibe 10 mg qd.Monitor yearly. Falls 984359439 R29.6 No recent falls.Cont inue fall precaution s.Monitor for safety. Abdominal pain 89731354 R10.84 No recent sxs.Contin ue famotidine 20 mg qd.Monitor Chronic pain 13699451 G8 9.29 Continue APAP 650 mg TID and q 12 hrs prnMonitor Unintentio nal weight loss 296742315 R63.4 Wt. stable since 03/29/23Cont inue mirtazapin e 15 mg qhsEncoura ge po intake.Mon itor wts and labs. [id number] MARIA E ROBERSON NP [facility] [address] 06/21/2023 17:48:19 06/25/2023 10:49:44 Dementia 15825410 F02.B0 Continues at baselineCo ntinue trazadone 25 mg q afternoon, sertraline 75 mg qd and mirtazapin e 15 mg qhs.Contin ue supportive care, expect decline.Gu ardianship in placeMonit or mood and behaviors. Psych follows. Seizure disorder 2500172 02 G40.802 No recent seizure activity.C ontinue levetirace whitfield 250 mg BID and phenytoin ER 200 mg qAM and 100 mg q afternnoon .Monitor levels and seizure activity Essential hypertension 54185015 I10 BP soft latelyStop amlodipine 2.5 mg qdMonitor BP and labs. Mixed anxi ety and depressive disorder 108985451 F41.8 F32.89 See meds as above.Seble cabrera betterGain ing weightMood brighter Hypothyroidism 03497519 E03.8 TSH WNL in 11/2022.Con tinue levothyrox ine 25 mcg qdMonitor TSH yearly. Mixed hyperlipidemia 267 024200 E78.2 LDL was 132 in 02/2023.Not worth pushing for tight control in this demented man.Contin ue pravastati n 80 mg qd and ezetimibe 10 mg qd.Monitor yearly. Falls [id number] R29.6 No recent falls.Cont inue fall precaution s.Monitor for safety. Abdominal pain 23038264 R10.84 No recent sxs.Contin ue famotidine 20 mg qd.Monitor Chronic pain 32539233 G8 9.29 Continue APAP 650 mg TID and q 12 hrs prnMonitor Unintentio nal weight loss 443860383 R63.4 Wt. stable since 03/29/23Cont inue mirtazapin e 15 mg qhsEncoura ge po intake.Mon itor wts and labs. [id number] Leana Tee- [facility] [address] [place] [address] 06/29/2023 11:11:29 07/04/2023 08:28:44 Dementia 78717171 F02.B0 Continues at baselineCo ntinue trazadone 25 mg q afternoon, sertraline 75 mg qd and mirtazapin e 15 mg qhs.Contin ue supportive care, expect decline.HC P invokedMon itor mood and behaviors. Psych follows. Seizure disorder 4556526 02 G40.802 No recent seizure activity.C ontinue levetirace whitfield 250 mg BID and phenytoin ER 200 mg qAM and 100 mg qafternnoo n.Monitor levels and seizure activity Essential hypertension 01393473 I10 BP in good control.Co ntinue amlodipine 2.5 mg qdMonitor BP and labs. Mixed anxi ety and depressive disorder [id number] F41.8 F32.89 As above. Hypothyroidism 37464564 E03.8 TSH WNL in 11/2022.Con tinue levothyrox ine 25 mcg qdMonitor TSH yearly. Mixed hyperlipidemia 267 059453 E78.2 LDL was 132 in 02/2023.Con tinue pravastati n 80 mg qd and ezetimibe 10 mg qd.Monitor yearly. Falls 773963625 R29.6 No recent falls.Cont inue fall precaution s.Monitor for safety. Abdominal pain 45750286 R10.84 No recent sxs.Contin ue famotidine 20 mg qd.Monitor Chronic pain 96248379 G8 9.29 Continue APAP 650 mg TID and q 12 hrs prnMonitor Unintentio nal weight loss 013639794 R63.4 Wt. stable since 03/29/23Cont inue mirtazapin e 15 mg qhsEncoura ge po intake.Mon itor wts and labs. [id number] [facility] [address] 08/13/2023 15:50:28 08/15/2023 07:43:36 Mixed anxiety and depressive disorder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
--- OUTSIDE RECORDS SUMMARY | 2024-10-12 17:19 | XMS_ITS | Encounter Summary ---
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) Social History Tobacco Use Types Packs/Day Years Used Date Smoking Tobacco: Never Assessed Sex and Gender Information Value Date Recorded Sex Assigned at Not on file Legal Sex Male 8:10 AM EST Gender Identity Not on file Sexual Orientation Not on file documented as of this encounter Plan of Treatment Not on file documented as of this encounter Procedures Procedure Name Priority Date/Time Associated Diagnosis Comments LIPID PANEL WITH REFLEX TO DIRECT LDL Routine 09/23/2024 5:16 AM EST Other fpc (current) drug therapy Hypothyroidism, unspecified 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) HEMOGLOBIN A1C Routine 09/23/2024 5:16 AM EST Other laborer marine terminal (current) drug therapy Hypothyroidism, unspecified 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) documented in this encounter Results * (ABNORMAL) Lipid panel with reflex to direct LDL (09/23/2024 5:16 AM EST) [facility] Signature Cholesterol 192 0 - 200 mg/dL LAB CHEMISTRY METHOD 09/23/2024 9:22 AM EST [facility] LAB Triglycerides 101 0 - 150 mg/dL LAB CHEMISTRY METHOD 09/23/2024 9:22 AM [facility] LAB HDL 64 >=40 mg/dL LAB CHEMISTRY METHOD 09/23/2024 9:22 AM [facility] LDL Calculated 108(H) 0 - 100 mg/dL LAB CHEMISTRY METHOD 09/23/2024 9:22 AM [facility] LAB VLDL Cholesterol Stephane 20.2 mg/dL LAB CHEMISTRY METHOD 09/23/2024 9:22 AM [facility] LAB Non HDL Chol. (LDL+VLDL) 128 <145 mg/dL LAB CHEMISTRY METHOD 09/23/2024 9:22 AM [facility] Chol/HDL Ratio 3.0 0.0 - 4.4 LAB CHEMISTRY METHOD 09/23/2024 9:22 AM [facility] LAB Blood Venous blood specimen / Unknown Venipuncture / Unknown 09/23/2024 5:16 AM EST 09/23/2024 8:20 AM EST us Kamaljit Alonzo MD LAB BLOOD ORDERABLES Final Resul t [facility] [address] [place] [address], [place] [phone] * Hemoglobin A1c (09/23/2024 5:16 AM EST) Hemoglobin A1C 5.4 <6.5 % LAB CHEMISTRY METHOD 09/23/2024 1:51 PM [facility] Mean Bld Glu Estim. 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
--- OUTSIDE RECORDS SUMMARY | 2024-10-12 17:19 | XMS_ITS | Clinical Summary ---
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) from Last 3 Months Social History Tobacco Use Types Packs/Day Years Used Date Smoking Tobacco: Never Assessed Sex and Gender Information Value Date Recorded Sex Assigned at Not on file Legal Sex Male 8:10 AM EST Gender Identity Not on file Sexual Orientation Not on file Plan of Treatment Health Maintenance Due Date Last Done Comments DTaP,Tdap,and Td Vaccines (1 - Tdap) 1968 Pneumococcal Vaccine: 50+ Ye ars (1 of 1 - PCV) 1999 Zoster Vaccines (1 of 2) 1999 COVID-19 Vaccine (1 - 2023-2 5 season) 2024 Influenza Vaccine (#1) 2024 Abdominal Aortic Aneurysm (A AA) Screen 09/23/2024 Colorectal Cancer Screening: Colonoscopy 09/23/2024 Depression Screening 09/23/2024 Falls Risk Assessment 09/23/2024 Hepatitis C Screening 09/23/2024 Medicare Annual Wellness Visit 09/23/2024 Social Influencers of Health Screening 09/23/2024 RSV Immunization Patients 60 + Years Old (1 - 1-dose 75+ series) 2024 Cholesterol Screening (Lipid Panel) 09/23/2029 09/23/2024 HIB Vaccines Aged Out No longer eligi ble based on patient's age to complete this topic HPV Vaccines Aged Out No longer eligi ble based on patient's age to complete this topic Hepatitis A Vaccines Aged Out No long er eligible based on patient's age to complete this topic Hepatitis B Vaccines Aged Out No long er eligible based on patient's age to complete this topic IPV Vaccines Aged Out No longer eligi ble based on patient's age to complete this topic MMR Vaccines Aged Out No longer eligi ble based on patient's age to complete this topic Meningococcal ACWY Vaccine Aged Out N o longer eligible based on patient's age to complete this topic Meningococcal B Vacine Aged Out No lo nger eligible based on patient's age to complete this topic RSV Immunization Patients Un millie 20 months Aged Out No longer eligible b ased on patient's age to complete this topic Varicella Vaccines Aged Out No longer eligible based on patient's age to complete this topic Procedures Procedure Name Priority Date/Time Associated Diagnosis Comments LIPID PANEL WITH REFLEX TO DIRECT LDL Routine 09/23/2024 5:16 AM EST Other buttermaker helper (current) drug therapy Hypothyroidism, unspecified 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) HEMOGLOBIN A1C Routine 09/23/2024 5:16 AM EST Other buttermaker helper (current) drug therapy Hypothyroidism, unspecified 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) from Last 3 Months Results * (ABNORMAL) Lipid panel with reflex to direct LDL (09/23/2024 5:16 AM EST) Cholesterol 192 0 - 200 mg/dL LAB CHEMISTRY METHOD 09/23/2024 9:22 AM EST [facility] LAB Triglycerides 101 0 - 150 mg/dL LAB CHEMISTRY METHOD 09/23/2024 9:22 AM EST [facility] LAB HDL 64 >=40 mg/dL LAB CHEMISTRY METHOD 09/23/2024 9:22 AM EST [facility] LDL Calculated 108(H) 0 - 100 mg/dL LAB CHEMISTRY METHOD 09/23/2024 9:22 AM [facility] LAB VLDL Cholesterol Stephane 20.2 mg/dL LAB CHEMISTRY METHOD 09/23/2024 9:22 AM EST [facility] Non HDL Chol. (LDL+VLDL) 128 <145 mg/dL LAB CHEMISTRY METHOD 09/23/2024 9:22 AM EST [facility] LAB Chol/HDL Ratio 3.0 0.0 - 4.4 LAB CHEMISTRY METHOD 09/23/2024 9:22 AM [facility] LAB Blood Venous blood specimen / Unknown Venipuncture / Unknown 09/23/2024 5:16 AM EST 09/23/2024 8:20 AM EST Kamaljit Alonzo MD LAB BLOOD ORDERABLES Final Resul t [facility] [address] [place] [address], [place] [phone] * Hemoglobin A1c (09/23/2024 5:16 AM EST) Hemoglobin A1C 5.4 <6.5 % LAB CHEMISTRY METHOD 09/23/2024 1:51 PM [facility] Mean Bld Glu Estim. 108 mg/dL LAB CHEMISTRY METHOD 09/23/2024 1:51 PM [facility] LAB Blood Venous blood specimen / Unknown Venipuncture / Unknown 09/23/2024 5:16 AM EST 09/23/2024 8:20 AM EST Kamaljit Alonzo MD LAB BLOOD ORDERABLES Final Resul t [facility] [address] [place] [address], [place] [phone] from Last 3 Months Insurance MEDICARE Care Teams Precision Thread Grinder Operator Relationship Specialty Start Date End Date Kamaljit Alonzo MD [address] [facility] [address] [place] [id number] PCP - General Family Medicine 09/23/24
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
[2024-10-12 17:59] LABS: MANUAL DIFF FLAG NO
[2024-10-12 18:01] LABS: Basophils Absolute Auto 0.1 X10*3/uL (0.0-0.2); Basophils Percent Auto 0.8 % (0-2); Eosinophils Absolute Auto 0.8 X10*3/uL (0.0-0.4); Eosinophils Percent Auto 10.4 % (0-4); Hemoglobin 13.4 g/dl (14.0-18.0); Imm Gran Abs Auto 0.01 X10*3/uL (0.00-0.03); Imm Gran Pct Auto 0.1 % (0.0-0.4); Lymphocytes Absolute Auto 1.4 X10*3/uL (1.2-4.9); Lymphocytes Percent Auto 17.3 % (20-40); Mean Corpuscular HGB Conc 34.4 g/dl (31.0-36.0); Mean Corpuscular Hemoglobin 31.1 pg (27.0-33.0); Mean Corpuscular Volume 90.5 fL (80.0-98.0); Mean Platelet Volume 10.2 fL (9.4-12.4); Monocytes Absolute Auto 0.9 X10*3/uL (0.1-1.2); Neutrophils Absolute Auto 4.7 x10*3/uL (2.0-8.3); Neutrophils Percent Auto 59.4 % (45-73); Platelet Count 284 X10*3/uL (160-400); Red Blood Count 4.31 X10*6/uL (4.60-5.80); Red Cell Distribution Width 15.1 % (11.0-16.0); White Blood Count 7.8 X10*3/uL (4.8-10.8)
[2024-10-12 18:07] LABS: Ammonia 65 umol/L (13-55)
[2024-10-12 18:20] LABS: Alanine Aminotransferase 19 U/L (0-40); Alkaline Phosphatase 145 U/L (39-117); Anion Gap 16 (12-20); Aspartate Amino Transferase 30 U/L (5-37); Bilirubin Total 0.1 mg/dL (0.0-1.0); Blood Urea Nitrogen 26 mg/dL (9-16); Calcium 9.3 mg/dL (8.4-10.2); Carbon Dioxide 22 mmol/L (22-29); Chloride 108 mmol/L (96-108); Creatinine Clr Calc Pharmacy 71.1; Estimated Glomerular Filt Rate > 60; Glucose Random 90 mg/dL (60-115); Potassium 3.8 mmol/L (3.3-5.1); Sodium 142 mmol/L (135-145)
[2024-10-12 18:35] LABS: TSH reflex Free T4 2.78 uIU/mL (0.32-4.0)
[2024-10-12] MEDS: 0.9 % Sodium Chloride 1,000 ML 999 ML IV (19:17)
[2024-10-12 19:45] VITALS: BP 149/84; PULSE 61; RESP 16; TEMP 36.8; O2SAT 95
[2024-10-12] MEDS: Enoxaparin Sodium 40 MG/0.4 ML SYRINGE SUBCUT (20:13)
[2024-10-12] MEDS: Phenytoin Sodium Extended 100 MG CAPSULE PO (20:40)
[2024-10-12] MEDS: Lactulose 20 GM/30 ML SOLUTION PO (20:40)
[2024-10-12] MEDS: levETIRAcetam 250 MG TABLET PO (20:40)
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
[2024-10-12 21:17] LABS: Appearance Urine Clear; Color Urine Yellow; Glucose Urine UA Negative (Negative); Leukocyte Esterase Urine Negative (Negative); Nitrite Urine Negative (Negative); UMIC TRIGGER UACC YES; Urine Blood Trace (Negative); Urine Ketones Negative (Negative); Urine Protein Negative (Neg-Trace)
[2024-10-12 21:22] LABS: Bacteria Urine None Seen (None Seen); Hyaline Casts Urine 0-2 /LPF (0-2); Squamous Epithelial Cell Urine 0-2 /HPF (0-2); WBC Urine 0-5 /HPF (0-5)
[2024-10-12 21:28] LABS: Amphetamine Screen Urine Not Detected (Not Detect); Barbiturates, Urine Not Detected (Not Detect); Benzodiazepines Screen Urine Not Detected (Not Detect); Buprenorphine Scr Not Detected (Not Detect); Cannabinoid Screen Urine Not Detected (Not Detect); Cocaine Screen Urine Not Detected (Not Detect); Fentanyl, urine Not Detected (Not Detect); Methadone Screen, Urine Not Detected (Not Detect); Opiate Screen Urine Not Detected (Not Detect); Oxycodone Screen Urine Not Detected (Not Detect); Phencyclidine Screen Urine Not Detected (Not Detect)
[2024-10-12] MEDS: Aspirin 325 MG TABLET PO (22:07)
[2024-10-12] MEDS: Donepezil HCl 10 MG TABLET PO (22:07)
[2024-10-12] MEDS: Pravastatin Sodium 80 MG TABLET PO (22:16)
--- NOTE | 2024-10-12 23:26 | PC.NURSE ---
patient confused due to dementia and ripped out IV. MD made aware and is ok to leave IV out for the night.
[2024-10-13] VITALS: BP 127/86; PULSE 67; RESP 14; TEMP 37.2; O2SAT 94
[2024-10-13 03:54] VITALS: BP 154/89; PULSE 67; RESP 16; TEMP 36.7; O2SAT 95
--- NOTE | 2024-10-13 04:17 | PC.NURSE ---
patient produced large bowel movement. Linen and patient gown changed.
[2024-10-13 05:43] LABS: Basophils Percent Auto 0.6 % (0-2); Eosinophils Absolute Auto 0.4 X10*3/uL (0.0-0.4); Eosinophils Percent Auto 5.2 % (0-4); Hematocrit 42.6 % (42.0-52.0); Hemoglobin 14.6 g/dl (14.0-18.0); Imm Gran Abs Auto 0.01 X10*3/uL (0.00-0.03); Imm Gran Pct Auto 0.1 % (0.0-0.4); Lymphocytes Absolute Auto 0.8 X10*3/uL (1.2-4.9); Lymphocytes Percent Auto 11.2 % (20-40); MANUAL DIFF FLAG NO; Mean Corpuscular HGB Conc 34.3 g/dl (31.0-36.0); Mean Corpuscular Hemoglobin 30.9 pg (27.0-33.0); Mean Corpuscular Volume 90.1 fL (80.0-98.0); Mean Platelet Volume 9.8 fL (9.4-12.4); Monocytes Absolute Auto 0.6 X10*3/uL (0.1-1.2); Monocytes Percent Auto 8.3 % (2-11); Neutrophils Absolute Auto 5.2 x10*3/uL (2.0-8.3); Neutrophils Percent Auto 74.6 % (45-73); Platelet Count 283 X10*3/uL (160-400); Red Blood Count 4.73 X10*6/uL (4.60-5.80); Red Cell Distribution Width 14.7 % (11.0-16.0)
[2024-10-13 05:49] LABS: Ammonia 35 umol/L (13-55)
[2024-10-13 05:55] LABS: Anion Gap 13 (12-20); Blood Urea Nitrogen 14 mg/dL (9-16); Calcium 8.9 mg/dL (8.4-10.2); Carbon Dioxide 22 mmol/L (22-29); Chloride 106 mmol/L (96-108); Creatinine Clr Calc Pharmacy 75.7; Estimated Glomerular Filt Rate > 60; Glucose Random 97 mg/dL (60-115); Potassium 3.4 mmol/L (3.3-5.1); Sodium 138 mmol/L (135-145)
--- NOTE | 2024-10-13 07:44 | PHA.MEDREC ---
Pharmacy Consult ? Medication Reconciliation Pharmacy has completed the medication reconciliation.LIST FROM TAHMINA ALFONSO MD [facility] REC COMPLETE
--- NOTE | 2024-10-13 08:33 | PC.NURSE ---
new 22G placed in L bicep
[2024-10-13 09:50] VITALS: BP 144/95; PULSE 76; RESP 14; TEMP 36.6; O2SAT 97
[2024-10-13] MEDS: 0.9 % Sodium Chloride Flush 3 ML SYRINGE IVFLUSH (09:52)
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
[2024-10-13] MEDS: Phenytoin Sodium Extended 100 MG CAPSULE 200 MG PO (09:53)
[2024-10-13] MEDS: Folic Acid 1 MG TABLET PO (09:53)
[2024-10-13] MEDS: Lactulose 20 GM/30 ML SOLUTION PO (09:53)
[2024-10-13] MEDS: Sertraline HCL 25 MG TABLET PO (09:53)
[2024-10-13] MEDS: Aspirin 325 MG TABLET PO (09:54)
[2024-10-13] MEDS: Levothyroxine Sodium 25 MCG TABLET PO (09:54)
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
== END 2024-10-13 14:14 | disposition skilled nursing facility (03) ==
LOC: HO.ED 18:52 → HO.EDOVER 19:50 → HO.S3 10-13 07:48 → HO.EDOVER 10-13 09:43
PROVIDERS: Physician Assistant Medical; Admitting Provider Student in an Organized Health Care Education/Training Program; Emergency Provider Emergency Medicine Emergency Medical Services; PCP Family Medicine; Visit Provider Internal Medicine
DX: E72.20 Disorder of urea cycle metabolism, unspecified (principal); G40.909 Epilepsy, unspecified, not intractable, without status epilepticus; G93.41 Metabolic encephalopathy; F03.90 Unspecified dementia, unspecified severity, without behavioral disturbance, psychotic disturbance, mood disturbance, and anxiety; I10 Essential (primary) hypertension; E78.5 Hyperlipidemia, unspecified; E03.9 Hypothyroidism, unspecified; K21.9 Gastro-esophageal reflux disease without esophagitis; Z79.899 Other long term (current) drug therapy
CPT/HCPCS: 36415; 71046; 80048; 80053; 80307; 81001; 82140; 83735; 84443; 85025; 96360; 96361; 96372; 99221; 99285; J1650

== ENCOUNTER → 2024-10-12 17:10 | Outpatient (BNV) | payer MEDICARE, MEDICAID, SELFPAY | PROVIDERS: Emergency Provider Emergency Medicine Emergency Medical Services; Visit Provider Radiology Diagnostic Radiology | DX: R45.6 Violent behavior (principal) | CPT/HCPCS: 71046 ==

== ENCOUNTER → 2024-10-12 19:43 | Outpatient (BNV) | payer MEDICARE, MEDICAID, SELFPAY | PROVIDERS: Admitting Provider Student in an Organized Health Care Education/Training Program; Emergency Provider Emergency Medicine Emergency Medical Services; Visit Provider Student in an Organized Health Care Education/Training Program | DX: K76.82 Hepatic encephalopathy (principal) | CPT/HCPCS: 99222; 99239 ==

== ENCOUNTER 2024-12-15 22:26 | Emergency (ER) | payer MEDICARE, MEDICAID, SELFPAY ==
--- NOTE | ~2024-12-15 | CT_ITS ---
CLINICAL HISTORY: Unwitnessed fall CT cervical spine without contrast Comparison: None Findings: Reversal of the normal cervical lordosis may be positional. Moderate multilevel degenerative changes. No acute fractures or dislocations. No acute findings on limited view of the intracranial contents. Bilateral carotid atherosclerosis. No consolidation or effusion at the lung apices. IMPRESSION: 1. No acute osseous injury. This document has been electronically signed by: Pat Frank MD on 12/16/2024 00:49:38
--- NOTE | ~2024-12-15 | CT_ITS ---
CLINICAL HISTORY: abd pain, TTP RUQ CT abdomen and pelvis without contrast Comparison: None Findings: The lung bases are clear. The study is limited based on motion artifact and lack of intravenous contrast. There is a large infrarenal abdominal aortic aneurysm measuring up to 7.4 x 5.8 cm. This appears partially thrombosed and there is stranding about the left lateral and posterior aspect of the aneurysms sac. No comparison studies. There is a right adrenal mass which appears partially calcified and measures up to 3.6 x 4.3 cm. The liver, gallbladder, spleen and kidneys appear unremarkable. Significant distention of the colon, which contains prominent gas. No small bowel obstruction. Severe diffuse atherosclerotic disease. The pancreas is not well-defined. Several compression fractures are present throughout the spine. Impression: There is a 7.4 x 5.8 cm infrarenal abdominal aortic aneurysm with the suggestion of stranding along the posterior left lateral aspect of this aneurysm. There are no comparison studies and evaluation is limited in the absence of contrast. Contained aneurysm rupture or early rupture is not excluded. Correlation with any prior imaging and vascular surgery consultation recommended. Right adrenal mass, incompletely evaluated. Gas distended colon without small-bowel obstruction. This document has been electronically signed by: Elgin Elizalde MD on 12/16/2024 05:26:39
--- NOTE | ~2024-12-15 | XR_ITS ---
CLINICAL HISTORY: unwitnessed fall 1 view chest x-ray Comparison: CR - XR CHEST 2V - 10/12/24 17:32 EST Findings: Perihilar linear opacities favoring atelectasis. No pleural effusion or pneumothorax. Cardiomediastinal silhouette is stable. Aortic atherosclerosis. Gas distended colon in the visualized upper abdomen. Scoliosis. IMPRESSION: Perihilar linear opacities favoring atelectasis. Gas distended colon in the visualized upper abdomen. This document has been electronically signed by: Pat Frank MD on 12/16/2024 02:35:49
--- NOTE | ~2024-12-15 | XR_ITS ---
CLINICAL HISTORY: fall hip pain 5 view, pelvis and bilateral hips Comparison: None Findings: Osteopenia. Prior open reduction internal fixation of the right femur. Bilateral hip osteoarthritis. No acute fracture or dislocation. Vascular calcifications. IMPRESSION: No acute findings. This document has been electronically signed by: Pat Frank MD on 12/16/2024 02:39:40
--- NOTE | ~2024-12-15 | CT_ITS ---
CLINICAL HISTORY: Unwitnessed fall CT head without contrast Comparison: None Findings: No acute intracranial hemorrhage, hydrocephalus or transcortical infarct. Moderate volume loss. Periventricular and subcortical white matter hypoattenuation likely chronic small-vessel ischemic changes. Chronic lacunar infarct in the right caudate head. Intracranial atherosclerosis. Mild mucosal thickening in the left maxillary sinus. The orbits are unremarkable. There is no acute fracture. IMPRESSION: 1. No acute intracranial findings. This document has been electronically signed by: Pat Frank MD on 12/16/2024 00:48:00
[2024-12-15 22:33] VITALS: BP 100/60; PULSE 104; O2SAT 98
[2024-12-15 22:36] VITALS: BP 123/88; PULSE 96; RESP 20; TEMP 36.4; O2SAT 95; BMI 18.7
--- NOTE | 2024-12-15 22:43 | ECG_ITS ---
Test Reason : FALL Blood Pressure : */* mmHG Vent. Rate : 94 BPM Atrial Rate : 94 BPM P-R Int : 186 ms QRS Dur : 72 ms QT Int : 350 ms P-R-T Axes : 75 51 40 degrees QTcB Int : 437 ms Normal sinus rhythm T wave abnormality, consider anterior ischemia Abnormal ECG When compared with ECG of 15-Feb-2021 14:40, Premature supraventricular complexes are no longer Present Referred By: Alia Langston Electronically Signed By: RUPINDER CHIRINOS
--- NOTE | 2024-12-15 22:51 | ED.FALL ---
HPI - Fall General Chief Complaint: Fall Stated Complaint: fall unwitnessed Time Seen by Provider: 12/15/24 22:40 Source: patient and EMS Mode of arrival: EMS Limitations: altered mental status History of Present Illness ED Provider: anthony peraza np HPI Narrative: Patient is a 74-year-old male who presents emergency department via EMS from [facility] after an unwitnessed fall. Staff heard thought and presented to the room findings on the floor. He is unable to provide much history surrounding the fall, he has confusion at baseline. He has a very soft speech, difficulty to really understand what he is saying. Does not appear to have acute change from baseline per EMS report from staff. Related Data Home Medications ?Medication ?Instructions ?Recorded ?Confirmed acetaminophen 325 mg tablet 650 mg PO TID 02/15/21 10/13/24 (Tylenol) folic acid 1 mg tablet 1 mg PO DAILY 02/15/21 10/13/24 levetiracetam 250 mg tablet 1 tab PO BID 02/15/21 10/12/24 levothyroxine 25 mcg tablet 1 tab PO DAILY@0602/15/21 10/13/24 magnesium hydroxide 400 mg/5 mL 30 ml PO Q24H PRN Constipation 02/15/21 10/13/24 oral suspension (Milk of Magnesia) phenytoin sodium extended 100 mg 1 cap PO BEDTIME 02/15/21 10/12/24 capsule phenytoin sodium extended 100 mg 2 cap PO DAILY 02/15/21 10/12/24 capsule pravastatin 80 mg tablet 1 tab PO DAILY@1700 02/15/21 10/13/24 acetaminophen 325 mg tablet 650 mg PO Q12H PRN Pain (Scale 10/13/24 10/13/24 Score 4-6) bisacodyl 10 mg rectal suppository 10 mg AK DAILY PRN Constipation 10/13/24 10/13/24 coal tar 3 % shampoo 1 ea topical MOWETHSA@2100 10/13/24 10/13/24 ezetimibe 10 mg tablet (Zetia) 10 mg PO DAILY@169910/13/24 10/13/24 famotidine 20 mg tablet 20 mg PO DAILY 10/13/24 10/13/24 fluticasone propionate 50 1 spray intranasal DAILY@1700 02/17/25 02/17/25 mcg/actuation nasal spray,suspension mirtazapine 15 mg tablet 15 mg PO BEDTIME 10/13/24 10/13/24 nystatin 100,000 unit/gram topical 1 appl topical BID 10/13/24 10/13/24 cream ondansetron HCl 4 mg tablet 4 mg PO Q6H PRN Nausea And Vomiting 10/13/24 10/13/24 sertraline 100 mg tablet 100 mg PO DAILY@1700 10/13/24 10/13/24 sodium phosphates 19 gram-7 118 ml AK Q24H PRN Constipation 10/13/24 10/13/24 gram/118 mL enema (Enema) trazodone 50 mg tablet 25 mg PO DAILY@1700 10/13/24 10/13/24 Allergies Allergy/AdvReac Type Severity Reaction Status Date / Time No Known Allergies Allergy Verified 12/15/24 22:40 [No Known Allergies*] Review of Systems Review of Systems: Yes Unobtainable due to mental status PMFSH Past Medical History Attestation statement: The following information was validated with the patient. Source: old records reviewed Medical History Asymptomatic PVCs Dementia Social History Social History Household Members: Other Housing: Shelter Do you presently have visiting nurse or other home services: No Alcohol intake: never Patient Tobacco Use Status: Former Tobacco user Advance Directives Date on File: 02/21/21 service: No Current occupational status: retired Current occupation: rt handed Physical Exam Vital Signs: Vital Signs: Last Vital Signs Temp 98.3 F 12/16/24 07:15 Pulse 112 H 12/16/24 07:15 Resp 24 H 12/16/24 07:15 BP 153/72 H 12/16/24 07:15 Pulse Ox 93 12/16/24 07:15 O2 Del Method Room Air 12/16/24 05:45 BMI result Body Mass Index 18.7 Appearance: Alert.? Disoriented. Follows commands easily No acute distress.?Normal affect. Head: Normocephalic, atraumatic Eyes: Pupils equal, round and reactive to light.? EOMI. No palpable periorbital deformities or ecchymosis ENT: Pharynx normal.??TM normal bilaterally. No rhinorrhea. No septal hematoma. TM normal bilaterally Neck: Normal inspection.? Neck supple.??No midline cervical spine tenderness, step-offs, deformities. Back: No midline thoracic or lumbar spine tenderness, step-offs, deformities. CVS: Heart sounds normal. Normal heart rate and rhythm.? Pulses normal.?? Respiratory: No respiratory distress.? Lung sounds clear to auscultation bilaterally?? Abdomen: Soft and non-tender. Normoactive bowel sounds Skin: Skin warm and dry.? Normal skin color.? Extremities: No lower extremity edema.? No calf ttp. Full range of motion to bilateral upper and lower extremities. 2+ DP/PT pulse, 2+ radial pulse bilaterally. Neuro: Moves all extremities spontaneously. Sensation intact bilaterally. CN II-XII intact. No focal neuro deficits. Course Reevaluation(s) Reevaluation #1: CBC reveals an notable leukocytosis of 22,200 without any identifiable infectious source at this time, no significant anemia, no thrombocytopenia. Chemistry reveals no electrolyte derangement, has EDILIA, concern for what appears to be new onset diabetes with anion gap hyperglycemia random glucose of 284, gap of 25. At this time patient will receive normal saline IV fluid bolus, insulin regular 5 units IV, D5 and normal saline to be started at 150 mL/hour. At this time will obtain VBG, beta hydroxy. We will plan for straight catheterization for urinalysis at this time. CT of the head and cervical spine are pending at this time, pending CXR. At this time no infectious source is identified, pending CXR and urinalysis, will obtain blood cultures and lactic acid at this time, will plan for coverage with Rocephin. Time: 00:26 Reevaluation #2: Patient reporting pain pointing to the right hip. During prior examination was able to flex and externally rotate the bilateral hips without apparent pain or discomfort. Has history of right femoral neck fracture s/p ORIF in January of 2021. Will obtain XR of the pelvis at this time. Time: 00:54 Reevaluation #3: Beta hydroxy is not elevated. Venous gas without acidosis but rather alkalotic with pH of 7.45. Given EDILIA, may be starvation/malnutrition related. Patient had yet to receive insulin and D5 will discontinue at this time. Managed with fluids and plan for re-evaluation. Time: 01:18 Additional Reevaluation(s): 02:38 - my interpretation of chest x-ray does not show consolidation to suggest a pneumonia as etiology for leukocytosis, urinalysis not consistent with UTI. CXR does reveal an enlarged appearing bowel loop in the right diaphragm, appears to have some mild discomfort on palpation, must seen similarly on CXR on September 2024 though perhaps more prominent at this time. Reviewed with my attending Dr. Caraballo, will pursue noncontrast CT of the abdomen and pelvis for further evaluation at this time, avoiding contrast given EDILIA. 04:00 pending repeat lactic acid and basic metabolic panel in addition to CT of the abdomen and pelvis. Patient signed out to my attending Dr. Gonzales Consultations Consultation #1: Dr. Gonzales's progress note: 12/16/2024. CT abdomen and pelvis reported as:There is a 7.4 x 5.8 cm infrarenal abdominal aortic aneurysm with the suggestion of stranding along the posterior left lateral aspect of this aneurysm. There are no comparison studies and evaluation is limited in the absence of contrast. Contained aneurysm rupture or early rupture is not excluded. Correlation with any prior imaging and vascular surgery consultation recommended. Case was discussed with Dr. Richmond who recommended to transfer out. Case was discussed with Dr. Rabago at [facility] vascular surgery who recommended to transfer the patient to the ED. Case discussed with Dr. Jeanne smalls and patient was accepted to [facility] ED for further vascular surgery evaluation. Time: 06:36 Medications Administered Discontinued Medications Generic Name Dose Route Start Last Admin Trade Name Freq PRN Reason Stop Dose Admin Ceftriaxone Sodium 1 gm 12/16/24 00:29 12/16/24 00:47 Ceftriaxone Sodium 1 Gm Vial IVPUSH 12/16/24 00:30 1 gm ONCE ONE Administration Sodium Chloride 1,485 mls @ 1,485 mls/hr 12/16/24 00:28 12/16/24 02:25 Ns 30 ml/kg infuse over 1 hr (1485 ml) 12/16/24 01:27 Infused IV Infusion .Q1H STA Medical Decision Making Medical Decision Making MDM Narrative: Patient is a 74-year-old male past medical history of epilepsy, dementia, failure to thrive, depression, anxiety, hypertension, hyperlipidemia, hypothyroidism, SIADH who presents emergency department via EMS from [facility] for evaluation after an unwitnessed fall as per HPI. I am unable to obtain history from the patient, he is very soft-spoken, unable to interpret what he is saying. Per EMS report from staff at facility he has dementia and is confused at baseline. I am not certain whether his conversive inability is actually sign, we have attempted to contact [place] care staff to better determine his baseline. Will obtain CT of the head and cervical spine to exclude ICH, SDH, fracture, cervical spine fracture subluxation. As the etiology of the fall is unknown, Will obtain CBC to evaluate for leukocytosis/ anemia, CMP and lipase to evaluate for abnormal electrolytes /abnormal renal function/ abnormal hepatic/biliary function, EKG and troponin to evaluate for ischemia/ACS, and Urinalysis. He is moving the upper and lower extremities fully on command without apparent signs of pain. Differential Diagnosis Differential Diagnoses: The differential diagnosis associated with the presentation includes (See narrative above) Admission/Observation Consideration of admission/observation: Escalation of care including admission/observation considered Lab Data MDM Lab Attestation statement: I reviewed the patient's lab results. (See course narrative) 12/15/24 22:54 12/16/24 03:50 Labs: Lab Results 12/15/24 12/16/24 12/16/24 Range/Units 22:54 00:38 00:47 WBC 22.2 H (4.8-10.8) X10*3/uL RBC 4.70 (4.60-5.80) X10*6/uL Hgb 14.7 (14.0-18.0) g/dl Hct 41.8 L (42.0-52.0) % MCV 88.9 (80.0-98.0) fL MCH 31.3 (27.0-33.0) pg MCHC 35.2 (31.0-36.0) g/dl RDW 14.4 (11.0-16.0) % Plt Count 373 D (160-400) X10*3/uL MPV 10.2 (9.4-12.4) fL Immature Gran % (Auto) 0.5 H (0.0-0.4) % Neut % (Auto) 92.4 H (45-73) % Lymph % (Auto) 2.3 L (20-40) % [place] % (Auto) 4.7 (2-11) % Eos % (Auto) 0.0 (0-4) % Baso % (Auto) 0.1 (0-2) % Lymph # (Auto) 0.5 L (1.2-4.9) X10*3/uL [place] # (Auto) 1.1 (0.1-1.2) X10*3/uL Eos # (Auto) 0.0 (0.0-0.4) X10*3/uL Baso # (Auto) 0.0 (0.0-0.2) X10*3/uL Abs Immat Gran (auto) 0.12 H (0.00-0.03) X10*3/uL Absolute Neuts (auto) 20.5 H (2.0-8.3) x10*3/uL Absolute Nucleated RBC 0.000 (0.0-0.012) X10*3/uL Nucleated RBC % (auto) 0.0 (0.0-0.2) /100WBC Smear Tech's Comments VERIFIED PT 13.0 H (10.9-12.4) SEC INR 1.1 (0.9-1.1) VBG pH 7.45 H (7.32-7.43) VBG pCO2 34 mmHg VBG pO2 53 mmHg VBG HCO3 24 (22-26) mmol/L VBG O2 Saturation 84.0 % VBG Base Excess 0.9 mmol/L Sodium 141 (135-145) mmol/L Potassium 3.6 (3.3-5.1) mmol/L Chloride 104 (96-108) mmol/L Carbon Dioxide 16 L (22-29) mmol/L Anion Gap 25 H (12-20) BUN 30 H (9-16) mg/dL Creatinine 1.54 H (0.5-1.4) mg/dL Estim Creat Clear Calc 29.0 Estimated GFR 44 Random Glucose 284 H (60-115) mg/dL Lactic Acid 3.2 H* (0.5-2.0) mmol/L Lactic Acid F/U @ 2Hr (0.5-2.0) mmol/L Lactic Acid F/U @ 4Hr (0.5-2.0) mmol/L Calcium 9.6 D (8.4-10.2) mg/dL Magnesium 2.3 (1.6-2.6) mg/dL Total Bilirubin 0.5 (0.0-1.0) mg/dL AST 29 (5-37) U/L ALT 21 (0-40) U/L Alkaline Phosphatase 146 H (39-117) U/L Troponin I High Sens 73.2 H 59.3 H (<3.5-35.0) ng/L Total Protein 7.7 (6.5-8.0) g/dL Albumin 4.3 (3.5-5.0) g/dL Beta-Hydroxybutyrate 0.10 (0.02-0.27) mmol/L Urine Color Urine Appearance Urine pH (5.0-9.0) Ur Specific [place] (1.005-1.025) Urine Protein (Neg-Trace) mg/dL Urine Glucose (UA) (Negative) mg/dL Urine Ketones (Negative) mg/dL Urine Blood (Negative) Urine Nitrite (Negative) Ur Leukocyte Esterase (Negative) Urine RBC (0-2) /HPF Urine WBC (0-5) /HPF Ur Squamous Epith Cells (0-2) /HPF Urine Bacteria (None Seen) Hyaline Casts (0-2) /LPF Granular Casts Influenza Type A (PCR) NEGATIVE (Negative) Influenza Type B (PCR) NEGATIVE (Negative) RSV RNA Qual (PCR) NEGATIVE (Negative) SARS-CoV-2 RNA (RT-PCR) NEGATIVE (Negative) 12/16/24 12/16/24 12/16/24 Range/Units 01:50 03:50 06:12 WBC (4.8-10.8) X10*3/uL RBC (4.60-5.80) X10*6/uL Hgb (14.0-18.0) g/dl Hct (42.0-52.0) % MCV (80.0-98.0) fL MCH (27.0-33.0) pg MCHC (31.0-36.0) g/dl RDW (11.0-16.0) % Plt Count (160-400) X10*3/uL MPV (9.4-12.4) fL Immature Gran % (Auto) (0.0-0.4) % Neut % (Auto) (45-73) % Lymph % (Auto) (20-40) % [place] % (Auto) (2-11) % Eos % (Auto) (0-4) % Baso % (Auto) (0-2) % Lymph # (Auto) (1.2-4.9) X10*3/uL [place] # (Auto) (0.1-1.2) X10*3/uL Eos # (Auto) (0.0-0.4) X10*3/uL Baso # (Auto) (0.0-0.2) X10*3/uL Abs Immat Gran (auto) (0.00-0.03) X10*3/uL Absolute Neuts (auto) (2.0-8.3) x10*3/uL Absolute Nucleated RBC (0.0-0.012) X10*3/uL Nucleated RBC % (auto) (0.0-0.2) /100WBC Smear Tech's Comments PT (10.9-12.4) SEC INR (0.9-1.1) VBG pH (7.32-7.43) VBG pCO2 mmHg VBG pO2 mmHg VBG HCO3 (22-26) mmol/L VBG O2 Saturation % VBG Base Excess mmol/L Sodium 142 (135-145) mmol/L Potassium 3.3 (3.3-5.1) mmol/L Chloride 109 H (96-108) mmol/L Carbon Dioxide 17 L (22-29) mmol/L Anion Gap 19 (12-20) BUN 24 H (9-16) mg/dL Creatinine 0.88 (0.5-1.4) mg/dL Estim Creat Clear Calc 50.7 Estimated GFR > 60 Random Glucose 165 H (60-115) mg/dL Lactic Acid (0.5-2.0) mmol/L Lactic Acid F/U @ 2Hr 2.1 H* (0.5-2.0) mmol/L Lactic Acid F/U @ 4Hr 2.5 H* (0.5-2.0) mmol/L Calcium 9.0 D (8.4-10.2) mg/dL Magnesium (1.6-2.6) mg/dL Total Bilirubin (0.0-1.0) mg/dL AST (5-37) U/L ALT (0-40) U/L Alkaline Phosphatase (39-117) U/L Troponin I High Sens (<3.5-35.0) ng/L Total Protein (6.5-8.0) g/dL Albumin (3.5-5.0) g/dL Beta-Hydroxybutyrate (0.02-0.27) mmol/L Urine Color Yellow Urine Appearance Cloudy Urine pH 5.0 (5.0-9.0) Ur Specific [place] 1.020 (1.005-1.025) Urine Protein 100 (2+) H (Neg-Trace) mg/dL Urine Glucose (UA) 100 H (Negative) mg/dL Urine Ketones Trace (Negative) mg/dL Urine Blood Moderate (2+) H (Negative) Urine Nitrite Negative (Negative) Ur Leukocyte Esterase Negative (Negative) Urine RBC 11-20 H (0-2) /HPF Urine WBC 0-5 (0-5) /HPF Ur Squamous Epith Cells 3-5 (0-2) /HPF Urine Bacteria None Seen (None Seen) Hyaline Casts 11-20 (0-2) /LPF Granular Casts Present Influenza Type A (PCR) (Negative) Influenza Type B (PCR) (Negative) RSV RNA Qual (PCR) (Negative) SARS-CoV-2 RNA (RT-PCR) (Negative) Independent Interpretation I performed an independent interpretation of an: Plain X-Ray (See course narrative) and CT Scan (No ICH) Radiology Impression Discussion of test interpretation with radiology: I have reviewed the radiologist's reading. Radiologist Impression: CT cervical spine without contrast Comparison: None Findings: Reversal of the normal cervical lordosis may be positional. Moderate multilevel degenerative changes. No acute fractures or dislocations. No acute findings on limited view of the intracranial contents. Bilateral carotid atherosclerosis. No consolidation or effusion at the lung apices. IMPRESSION: 1. No acute osseous injury. CT head without contrast Comparison: None Findings: No acute intracranial hemorrhage, hydrocephalus or transcortical infarct. Moderate volume loss. Periventricular and subcortical white matter hypoattenuation likely chronic small-vessel ischemic changes. Chronic lacunar infarct in the right caudate head. Intracranial atherosclerosis. Mild mucosal thickening in the left maxillary sinus. The orbits are unremarkable. There is no acute fracture. IMPRESSION: 1. No acute intracranial findings. 1 view chest x-ray Comparison: CR - XR CHEST 2V - 10/12/24 17:32 EST Findings: Perihilar linear opacities favoring atelectasis. No pleural effusion or pneumothorax. Cardiomediastinal silhouette is stable. Aortic atherosclerosis. Gas distended colon in the visualized upper abdomen. Scoliosis. IMPRESSION: Perihilar linear opacities favoring atelectasis. Gas distended colon in the visualized upper abdomen. 5 view, pelvis and bilateral hips Comparison: None Findings: Osteopenia. Prior open reduction internal fixation of the right femur. Bilateral hip osteoarthritis. No acute fracture or dislocation. Vascular calcifications. IMPRESSION: No acute findings Discharge Plan Discharge Clinical Impression: AAA (abdominal aortic aneurysm) Patient Disposition: [facility] Hospital Transfer Details: [facility] ER. Prescriptions: No Action phenytoin sodium extended 100 mg capsule 2 cap PO DAILY levothyroxine 25 mcg tablet 1 tab PO DAILY@0630 pravastatin 80 mg tablet 1 tab PO DAILY@1700 levetiracetam 250 mg tablet 1 tab PO BID acetaminophen [Tylenol] 325 mg Tablet 650 mg PO TID phenytoin sodium extended 100 mg capsule 1 cap PO BEDTIME magnesium hydroxide [Milk of Magnesia] 400 mg/5 mL Suspension 30 ml PO Q24H PRN (Reason: Constipation) folic acid 1 mg Tablet 1 mg PO DAILY acetaminophen 325 mg Tablet 650 mg PO Q12H PRN (Reason: Pain (Scale Score 4-6)) trazodone 50 mg Tablet 25 mg PO DAILY@1700 ondansetron HCl 4 mg Tablet 4 mg PO Q6H PRN (Reason: Nausea And Vomiting) sertraline 100 mg Tablet 100 mg PO DAILY@1700 famotidine 20 mg Tablet 20 mg PO DAILY bisacodyl 10 mg Suppository 10 mg AK DAILY PRN (Reason: Constipation) nystatin 100,000 unit/gram Cream 1 appl TOPICAL BID Rx Instructions: APPLY TO LEFT ARM PIT FOR RASH Enema 19-7 gram/118 mL Enema 118 ml AK Q24H PRN (Reason: Constipation) mirtazapine 15 mg Tablet 15 mg PO BEDTIME fluticasone propionate 50 mcg/actuation [place],Suspension 1 spray INTRANASAL DAILY@1700 Rx Instructions: administer into each nostril ezetimibe [Zetia] 10 mg Tablet 10 mg PO DAILY@1700 coal tar 3 % Shampoo 1 ea TOPICAL MOWETHSA@2100 Rx Instructions: APPLY TO SCALP FOR DRY SKIN. APPLY FOR 15 MIN AND THEN RINSE THOROUGHLY Interventions: Acute Care Transfer Worksheet (ED) Last Done: 12/16/24 07:15 Discharge Date/Time: 12/16/24 07:19 Print Language: Unable To Collect
[2024-12-15 23:01] LABS: Basophils Percent Auto 0.1 % (0-2); Hematocrit 41.8 % (42.0-52.0); Hemoglobin 14.7 g/dl (14.0-18.0); Imm Gran Abs Auto 0.12 X10*3/uL (0.00-0.03); Imm Gran Pct Auto 0.5 % (0.0-0.4); Lymphocytes Absolute Auto 0.5 X10*3/uL (1.2-4.9); Lymphocytes Percent Auto 2.3 % (20-40); MANUAL DIFF FLAG SCAN; Mean Corpuscular HGB Conc 35.2 g/dl (31.0-36.0); Mean Corpuscular Hemoglobin 31.3 pg (27.0-33.0); Mean Corpuscular Volume 88.9 fL (80.0-98.0); Mean Platelet Volume 10.2 fL (9.4-12.4); Monocytes Absolute Auto 1.1 X10*3/uL (0.1-1.2); Monocytes Percent Auto 4.7 % (2-11); Neutrophils Absolute Auto 20.5 x10*3/uL (2.0-8.3); Neutrophils Percent Auto 92.4 % (45-73); Platelet Count 373 X10*3/uL (160-400); Red Cell Distribution Width 14.4 % (11.0-16.0); SCAN SMEAR FLAG 1; White Blood Count 22.2 X10*3/uL (4.8-10.8)
[2024-12-15 23:07] LABS: INTERNATIONAL NORM RATIO 1.1 (0.9-1.1)
[2024-12-15 23:16] LABS: Alanine Aminotransferase 21 U/L (0-40); Albumin Level 4.3 g/dL (3.5-5.0); Alkaline Phosphatase 146 U/L (39-117); Anion Gap 25 (12-20); Aspartate Amino Transferase 29 U/L (5-37); Bilirubin Total 0.5 mg/dL (0.0-1.0); Blood Urea Nitrogen 30 mg/dL (9-16); Calcium 9.6 mg/dL (8.4-10.2); Carbon Dioxide 16 mmol/L (22-29); Chloride 104 mmol/L (96-108); Estimated Glomerular Filt Rate 44; Glucose Random 284 mg/dL (60-115); Magnesium 2.3 mg/dL (1.6-2.6); Potassium 3.6 mmol/L (3.3-5.1); Sodium 141 mmol/L (135-145); Total Protein 7.7 g/dL (6.5-8.0)
[2024-12-15 23:22] LABS: Troponin-I High Sensitivity 73.2 ng/L (<3.5-35.0)
[2024-12-15 23:24] LABS: SLIDE REVIEW VERIFIED
[2024-12-15 23:38] LABS: Influenza A PCR NEGATIVE (Negative); Influenza B PCR NEGATIVE (Negative); Resp Syncy Virus RNA Qual PCR NEGATIVE (Negative); SARS COV2 PCR INHOUSE NEGATIVE (Negative)
[2024-12-16] MEDS: SODIUM CHLORIDE 1485 ML IV (00:47)
[2024-12-16] MEDS: cefTRIAXone sodium 1 GM VIAL IVPUSH (00:47)
[2024-12-16 00:58] LABS: VBG Base Excess 0.9 mmol/L; VBG HCO3 24 mmol/L (22-26); VBG pCO2 34 mmHg; VBG pH 7.45 (7.32-7.43); VBG pO2 53 mmHg
[2024-12-16 00:59] LABS: Venous Blood Gas Refer to POC result
[2024-12-16 01:08] LABS: Troponin-I High Sensitivity 59.3 ng/L (<3.5-35.0)
[2024-12-16 01:10] LABS: Lactic Acid 3.2 mmol/L (0.5-2.0)
[2024-12-16 02:03] LABS: Appearance Urine Cloudy; Color Urine Yellow; Glucose Urine UA 100 mg/dL (Negative); Leukocyte Esterase Urine Negative (Negative); Nitrite Urine Negative (Negative); UMIC TRIGGER UACC YES; Urine Blood Moderate (2+) (Negative); Urine Ketones Trace mg/dL (Negative); Urine Protein 100 (2+) mg/dL (Neg-Trace)
[2024-12-16 02:27] VITALS: BP 168/101; PULSE 90; RESP 21; TEMP 36.8; O2SAT 94
[2024-12-16 02:39] LABS: Bacteria Urine None Seen (None Seen); Granular Casts Urine Present; WBC Urine 0-5 /HPF (0-5)
[2024-12-16 02:44] LABS: Reflex Lactate? Lactic Acid Added
[2024-12-16 03:08] VITALS: BP 141/110; PULSE 100; RESP 24
[2024-12-16 04:08] LABS: Anion Gap 19 (12-20); Blood Urea Nitrogen 24 mg/dL (9-16); Carbon Dioxide 17 mmol/L (22-29); Chloride 109 mmol/L (96-108); Creatinine Clr Calc Pharmacy 50.7; Estimated Glomerular Filt Rate > 60; Glucose Random 165 mg/dL (60-115); Potassium 3.3 mmol/L (3.3-5.1); Sodium 142 mmol/L (135-145)
[2024-12-16 04:17] LABS: ~Lactic Acid-LAB USE ONLY 2.1 mmol/L (0.5-2.0)
[2024-12-16 05:45] VITALS: BP 129/85; PULSE 108; RESP 20; TEMP 36.8; O2SAT 93
[2024-12-16 05:54] LABS: Reflex Lactate? 2 Y
[2024-12-16 06:51] VITALS: BP 153/72; PULSE 112; RESP 24
[2024-12-16 06:51] LABS: ~Lactic Acid-LAB USE ONLY 2.5 mmol/L (0.5-2.0)
--- NOTE | 2024-12-16 07:14 | PC.NURSE ---
report called to [facility] ED. pt transfered at this time
[2024-12-16 07:15] VITALS: BP 153/72; PULSE 112; RESP 24; TEMP 36.8; O2SAT 93
--- NOTE | 2024-12-16 07:19 | PC.NURSE ---
called [facility] to inform of transfer
== END 2024-12-16 07:19 | disposition short-term general hospital (02) ==
PROVIDERS: Nurse Practitioner Family; Emergency Provider Emergency Medicine Emergency Medical Services
DX: I71.40 Abdominal aortic aneurysm, without rupture, unspecified (principal); M54.2 Cervicalgia; R94.31 Abnormal electrocardiogram [ECG] [EKG]; R41.0 Disorientation, unspecified; Z03.818 Encounter for observation for suspected exposure to other biological agents ruled out; Z79.899 Other long term (current) drug therapy; Z87.891 Personal history of nicotine dependence
CPT/HCPCS: 0241U; 36415; 70450; 71045; 72125; 73521; 74176; 80048; 80053; 81001; 81003; 82010; 82803; 83605; 83735; 84484; 85025; 85610; 87040; 93005; 96361; 96374; 99285; J0696

== ENCOUNTER → 2024-12-15 22:43 | Outpatient (BNV) | payer MEDICARE, MEDICAID, SELFPAY | PROVIDERS: Emergency Provider Emergency Medicine Emergency Medical Services; Visit Provider Radiology Diagnostic Radiology | DX: M25.551 Pain in right hip (principal); W19.XXXA Unspecified fall, initial encounter; Z03.89 Encounter for observation for other suspected diseases and conditions ruled out; R41.82 Altered mental status, unspecified | CPT/HCPCS: 70450; 72125 ==

== ENCOUNTER → 2024-12-15 22:43 | Outpatient (BNV) | payer MEDICARE, MEDICAID, SELFPAY | PROVIDERS: Emergency Provider Emergency Medicine Emergency Medical Services; Visit Provider Internal Medicine | DX: R94.31 Abnormal electrocardiogram [ECG] [EKG] (principal); W19.XXXA Unspecified fall, initial encounter | CPT/HCPCS: 93010 ==

== ENCOUNTER → 2024-12-16 00:53 | Outpatient (BNV) | payer MEDICARE, MEDICAID, SELFPAY | PROVIDERS: Emergency Provider Emergency Medicine Emergency Medical Services; Visit Provider Radiology Diagnostic Radiology | DX: I71.43 Infrarenal abdominal aortic aneurysm, without rupture (principal); R14.0 Abdominal distension (gaseous); E27.9 Disorder of adrenal gland, unspecified; M25.551 Pain in right hip; M25.552 Pain in left hip | CPT/HCPCS: 74176 ==